=== PATIENT | female | born 1970 | race Caucasian/White ===

== ENCOUNTER → 2017-12-11 14:28 | Outpatient (CLI) | payer OTHER, SELFPAY ==
--- NOTE | 2017-12-11 14:38 | RAD_ITS ---
STUDY: X-RAY - PELVIS REASON FOR EXAM: Female, 47 years old. Psoriatic arthropathy. Pain. TECHNIQUE: One view of the pelvis was obtained. COMPARISON: None. FINDINGS: There is a non-specific bowel gas pattern. Normal visualized soft tissue structures. Normal bilateral iliac wings, sacroiliac joints and visualized sacrum. Normal visualized bilateral superior and inferior pubic rami. Normal pubic symphysis. Normal ischial tuberosities. Normal visualized right femoral head. Normal right acetabulum. Normal right hip joint. Normal visualized left femoral head. Normal left acetabulum. Normal left hip joint. RAD/Pelvis 1 or 2 Views IMPRESSION: No significant abnormality identified. Electronically Signed: Laci Santos MD at 17:26 EST , Service support ,
[2017-12-11 15:29] LABS: Absolute Lymphocyte Count 2.99 X10^3/ul (0.83-4.51); Absolute Neutrophil Count 3.5 X10^3/uL (2.0-7.7); Basophil# 0.04 X10^3/uL; Basophil% 0.5 % (0-1); Eosinophils% 1.3 % (0-5); Hematocrit 44.2 % (37-47); Hemoglobin 15.2 g/dl (12.0-15.0); Lymphocyte # 2.99 X10^3/ul (4.0); Lymphocyte % 40.4 % (19-41); Mean Corp Hgb Conc 34.4 g/gl (32-36); Mean Corpuscular Hgb 30.3 pg (27.0-32.0); Mean Corpuscular Volume 88.2 fL (81-99); Monocyte# 0.79 X10^3/uL; Monocyte% 10.7 % (0-10); Neutrophil # 3.48 X10^3/uL (2.7-7.7); Platelet Count 286 K/mm3 (150-450); RBC Distribution Width CV 13.1 % (11.6-14.6); RBC Distribution Width SD 41.9 fl (35.1-43.9); Red Blood Count 5.01 M/mm3 (4.2-5.4); White Blood Count 7.4 K/mm3 (4.4-11.0)
[2017-12-11 15:33] LABS: POSITIVE COUNT NO; POSITIVE DIFFERENTIAL NO; POSITIVE MORPHOLOGY NO
[2017-12-11 15:47] LABS: Erythrocyte Sedimentation Rate 13 mm/hr (0-20)
[2017-12-11 15:54] LABS: ALB/GLOB Ratio 0.8 RATIO (0.9-2.4); AST(SGOT) 20 U/L (15-37); Alanine Aminotransfer ALT/SGPT 33 U/L (13-56); Albumin, Serum 3.6 g/dL (3.2-5.0); Alkaline Phosphatase 85 U/L (45-117); Anion Gap 11 (5-15); BUN 14 mg/dL (7-18); BUN/Creat Ratio 15.7 RATIO (10-20); CRP 6.52 mg/L (0.0-3.0); Calcium,Total 9.1 mg/dL (8.5-10.1); Chloride 101 mmol/L (98-107); Creatinine, Serum 0.89 mg/dL (0.55-1.02); EST Glomerular Filtration Rate 72 mL/min (>60); Est Glom Filt Rate - Afr Amer 87 mL/min (>60); Globulin 4.4 g/dL (2.2-4.2); Glucose 117 mg/dL (74-106); Potassium 3.5 mmol/L (3.5-5.1); Rheumatoid Factor < 10.0 IU/mL (<15); Sodium Level 138 mmol/L (136-145)
[2017-12-20 07:15] LABS: CCP IgG Antibodies 32 units (0-19); HEPATITIS B SURFACE AG Negative (Negative); HLA B27 Negative (.); Hep B Surface Antibodies Non Reactive (.); Hep C Antibodies 0.1 s/co ratio (0.0-0.9)
== END ==
PROVIDERS: Family Provider Nurse Practitioner Primary Care; PCP Nurse Practitioner Primary Care; Visit Provider Internal Medicine Rheumatology
DX: L40.59 Other psoriatic arthropathy (principal); L40.8 Other psoriasis; M79.7 Fibromyalgia; M21.40 Flat foot [pes planus] (acquired), unspecified foot; K21.9 Gastro-esophageal reflux disease without esophagitis; M50.30 Other cervical disc degeneration, unspecified cervical region; G43.909 Migraine, unspecified, not intractable, without status migrainosus; E03.9 Hypothyroidism, unspecified; I34.1 Nonrheumatic mitral (valve) prolapse; E78.5 Hyperlipidemia, unspecified
CPT/HCPCS: 36415; 72170; 80053; 81374; 85025; 85652; 86140; 86200; 86431; 86706; 86803; 87340

== ENCOUNTER 2024-07-12 09:00 | Outpatient (RCR) | payer OTHER, SELFPAY ==
--- NOTE | 2024-05-06 08:50 | HP.PTEVAL ---
Patient's Visit Information Visit Information Visit Information: NIMESH ALCAZAR is a 53 year old F referred to Physical Therapy by DUY DUNN with a diagnosis of L ankle tendonitis, synovitis. Date of Evaluation: 05/06/24 Physical Therapist: Orlando Powers, DPT, OCS, CSCS Visit Plan Frequency: 3x /Week Duration: 4-6 Weeks Plan: 3x/week x 4 2weeks in pool for 1. B ROM and core strength 2. B LE strength 3. gastroc and soleus stretch adn ankle strength Teach for I at d/c Subjective Subjective: I have tendonitis in L foot. Had PT at [facility] as she needs TKA on R knee and will be in July and that is causing back pain for which she had an MRI last week form Dr. Delgado. L foot is the problem, it comes and goes laterally. Very tender to touch. PT flared everything up and she has FM. They both want water therapy. Foot pain is daily intermittently. Hard to lie on tummy due to pressure on ankle. Had unaboot for 4 days last week and not sure if it helped. Not sure why this started. Foot pain 1-/10 and higher for no reason and was hard sit at work. 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 Ankle is tolerable , R knee pain limits her activity,back can also get worse with activity. sleeping is OK with foot but knee and back can keep her up. No numbness or tingling in legs but back pain goes to L upper leg. Dr. Delgado has given some injections. No regular exercises. Pain L ankle: Pain Intensity (Out of 10): 0 Pain Intensity Range: 0 and 9 R knee: Pain Intensity (Out of 10): 0 Pain Intensity Range: 1 and 10 back: Pain Intensity (Out of 10): 4 Pain Intensity Range: 4 and 9 Objective Objective: Walks into PT with slight R antalgia, transfers chair and bed I, steps with L only up and down with rail I. LB AROM mod stiff in ext and flexion with central pain, SB mod stiff without the discomfort. hips AROM WFL, knees R to 110 and L 125, pain on R. ankles WFL, some tightness in gastroc B to 0 DF AROM but symmetrical. reflexes 2/3 patella and achilles B Max tender top of L foot and anterior ankleover tarsal bones not in specific tendon. sensation WNL to gross light touch in B LE. strength core 3/5 with instability on seated hip testing. hip strength 3+ abd and ext and 4- flexion knee3s 4- B but r quad pains knee. Ankles 4 without pain. Balance/Special Test Scores Lower Extremity Functional Score: 24 Goals Goal 1:: I appropriate pool ex to manage pain in community pool Goal Time Frame: 4-6 Weeks Goal 2:: Pain L ankle 3/10 at worst and 75% better Goal Time Frame: 4-6 Weeks Goal 3:: R knee and LB pain 50% better at 5/10 at worst Goal 4:: Sleep without problems from pain Goal Time Frame: 4-6 Weeks Goal 5:: LEFS score 44 Goal Time Frame: 4-6 Weeks Rehabilitation Potential Physical Therapy Diagnosis: L ankle pain, back stiffness, knee degeneration causing mobility problems. Rehabilitation Potential: Fair Anticipated Interventions Patient/Client Instruction: Educate patient on: Condition For the Purpose of:: To decrease pain, To increase ROM, To improve nutrient delivery to tissue, To improve muscle performance and motor function and To increase tolerance to activity/condition/position Therapeutic Exercise to Include: Strength training, Balance training, Flexibilty training, Gait and locomotor training, In an aquatic setting, Passive ROM and Active ROM For the Purpose of:: To decrease pain, To increase ROM, To improve nutrient delivery to tissue, To increase tolerance to activity/condition/position, To improve ability of physical actions for home/community/work/leisure and To decrease soft tissue restriction Text: Thank you for the opportunity to evaluate your patient. For Medicare and Medicare HMO plans, please review the plan of care and approve it. It will need to be FAXED BACK to us at [phone] for Medicare purposes. For Medicare only, by signing this I certify the plan of care. Please let me know if there are questions or concerns regarding this plan of care. Physician Signature: Date:
--- NOTE | 2024-06-07 09:31 | HP.PTDCSUM_ITS ---
Discharge Summary D/C summary: It has been my pleasure to treat NIMESH ALCAZAR referred by DUY DUNN, with the diagnosis of L ankle tendonitis, synovitis for a total of 11 visit(s). Discharge Date: Please see the following information for a summary of their discharge status. Subjective Subjective: No f/u with foot doctor, foot is doing great. , No pain. Knee pain still achy and will have TKA R next month. Doing HEP but painful in the knee. Up to 8/10 with walking and use. Feels better sitting. Back pain is seeing Dr. Delgado and ordered more PT. now is able to lie on L side for period of time. sleep is OK some nights and not other nights without a pattern. Got injections in LB and has had 2 this year which helps for weeks. Sees Dr. Bran also for neck but had MRI which shows multiple disc bulges and degenerative changes. Overall 15% better. foot is 100% bettere knee is not better Back is 20% better. 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 Pain L ankle: Pain Intensity (Out of 10): 1 R knee: Pain Intensity (Out of 10): 5 back: Pain Intensity (Out of 10): 3 Overall Improvement % Improvement: 15 Objective Objective/Function: LB AROM mod to max limited and slow movement in all dire ctions and hesitant. weak in core as she leans and opposite leg rotates with stability testing causing back pain. Ankle ROM is good and painfree. R knee hurts to extend max and unable to resist strength test on R. 4/5 on L Fair prognosis for new LB goal and diagnosis. Goals Goal 1:: I appropriate pool ex to manage pain in community pool Goal Progress: yes ankle, new script ross Goal 2:: Pain L ankle 3/10 at worst and 75% better Goal Progress: Goal Met Goal 3:: R knee and LB pain 50% better at 5/10 at worst Goal Progress: 20%, approp Goal 4:: Sleep without problems from pain Goal Progress: knee keeps her up Goal 5:: LEFS score 44 Goal Progress: Not Progressing Goal 6:: LBP 75% better at 2/10 at worst and I approp back pool program. Goal Progress: NEW GOAL, new script. Plan Plan: d/c ankle chart and 2-3x/week for 4 weeks for new order from Dr. Delgado for LB focus ...ROM and core strength and general exercise keeping in mind knee pain and pending TKA in July. Please work ot fullk program and I at d/c for membership which patient is on board with. D/C Information d/c sentence: If there are questions or concerns regarding this patient's physical therapy, please feel free to call me at [phone]. Thank you for the referral of this patient. Sincerely, Orlando Powers, DPT, OCS, CSCS Balance/Gait/Functional tests Balance/Special Test Scores Lower Extremity Functional Score: 27 Improvement % Improvement: 15
--- NOTE | 2024-06-07 10:52 | HP.PTREVAL_ITS ---
Re-Evaluation Intro: Dr. Delgado, It has been my pleasure to treat NIMESH ALCAZAR over the last 11 visits for L ankle tendonitis, synovitis. Please see the progress note below for an update on the physical therapy plan of care! Subjective Subjective: No f/u with foot doctor, foot is doing great. , No pain. Knee pain still achy and will have TKA R next month. Doing HEP but painful in the knee. Up to 8/10 with walking and use. Feels better sitting. Back pain is seeing Dr. Delgado and ordered more PT. now is able to lie on L side for period of time. sleep is OK some nights and not other nights without a pattern. Got injections in LB and has had 2 this year which helps for weeks. Sees Dr. Bran also for neck but had MRI which shows multiple disc bulges and degenerative changes. Overall 15% better. foot is 100% bettere knee is not better Back is 20% better. 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 Objective Objective/Function: LB AROM mod to max limited and slow movement in all dire ctions and hesitant. weak in core as she leans and opposite leg rotates with stability testing causing back pain. Ankle ROM is good and painfree. R knee hurts to extend max and unable to resist strength test on R. 4/5 on L Fair prognosis for new LB goal and diagnosis. Plan Plan Plan: d/c ankle chart and 2-3x/week for 4 weeks for new order from Dr. Delgado for LB focus ...ROM and core strength and general exercise keeping in mind knee pain and pending TKA in July. Please work ot fullk program and I at d/c for membership which patient is on board with. Balance/Gait/Functional tests Balance/Special Test Scores Lower Extremity Functional Score: 27 Goals Goals Goal 1:: I appropriate pool ex to manage pain in community pool Goal Time Frame: 4-6 Weeks Goal Progress: yes ankle, new script ross Goal 2:: Pain L ankle 3/10 at worst and 75% better Goal Time Frame: 4-6 Weeks Goal Progress: Goal Met Goal 3:: R knee and LB pain 50% better at 5/10 at worst Goal Progress: 20%, approp Goal 4:: Sleep without problems from pain Goal Time Frame: 4-6 Weeks Goal Progress: knee keeps her up Goal 5:: LEFS score 44 Goal Time Frame: 4-6 Weeks Goal Progress: Not Progressing Goal 6:: LBP 75% better at 2/10 at worst and I approp back pool program. Goal Time Frame: 4-6 Weeks Goal Progress: NEW GOAL, new script. Anticipated Interventions Anticipated Interventions Patient/Client Instruction: Educate patient on: Condition For the Purpose of:: To decrease pain, To increase ROM, To improve nutrient delivery to tissue, To improve muscle performance and motor function and To increase tolerance to activity/condition/position Therapeutic Exercise to Include: Strength training, Balance training, Flexibilty training, Gait and locomotor training, In an aquatic setting, Passive ROM and Active ROM For the Purpose of:: To decrease pain, To increase ROM, To improve nutrient delivery to tissue, To increase tolerance to activity/condition/position, To improve ability of physical actions for home/community/work/leisure and To decrease soft tissue restriction Re-Evaluation Ending Re-evaluation ending: Please do not hesitate to contact me at [phone] by phone or if you have questions or concerns regarding this new plan of care! Sincerely, Orlando Powers, DPT, OCS, CSCS
--- NOTE | 2024-07-12 09:28 | HP.PTDCSUM_ITS ---
Discharge Summary D/C summary: It has been my pleasure to treat NIMESH ALCAZAR referred by Dr. Rober Gross MD, with the diagnosis of L ankle tendonitis, synovitis for a total of 19 visit(s). Discharge Date: 07/12/24 Please see the following information for a summary of their discharge status. Subjective Subjective: Having knee replaced in a week or so. Still hurts alot and almost gave out on her this am without warning. The pool has really helped her back an d made her leg stronger. She feels ready for surgery. Sleep is not bad. Better than before as she can lie on l side now. Pain L ankle: Pain Intensity (Out of 10): 0 R knee: Pain Intensity (Out of 10): 6 back: Pain Intensity (Out of 10): 4 Overall Improvement % Improvement: 50 Objective Objective/Function: walking with slight R antalgia today, Transfers I easily, steps with L LE only due to pain and distrust. Good ROM in bakc and ankle without pain today, knee is limited and poor confidence but funcitonal AROM and gait today. Goals Goal 1:: I appropriate pool ex to manage pain in community pool Goal Progress: Goal Met Goal 2:: Pain L ankle 3/10 at worst and 75% better Goal Progress: Goal Met Goal 3:: R knee and LB pain 50% better at 5/10 at worst Goal Progress: Goal Met Goal 4:: Sleep without problems from pain Goal Progress: Goal Met Goal 5:: LEFS score 44 Goal Progress: Not Progressing Goal 6:: LBP 75% better at 2/10 at worst and I approp back pool program. Goal Progress: Progressing Plan Plan: d/c, pt to come back for knee after her surgery. Main deficits now are from knee and will be addressed with surgery. D/C Information d/c sentence: If there are questions or concerns regarding this patient's physical therapy, please feel free to call me at [phone]. Thank you for the referral of this patient. Sincerely, Orlando Powers, DPT, OCS, CSCS Balance/Gait/Functional tests Balance/Special Test Scores Lower Extremity Functional Score: 25 Improvement % Improvement: 50
== END 2024-07-12 10:36 | disposition home or self-care (01) ==
LOC: PT 09:00
PROVIDERS: PCP Nurse Practitioner Primary Care; Referring Provider Anesthesiology Pain Medicine; Visit Provider Anesthesiology Pain Medicine
DX: M77.52 Other enthesopathy of left foot and ankle (principal); M65.9 Synovitis and tenosynovitis, unspecified
CPT/HCPCS: 97113; 97161; 97530

== ENCOUNTER 2024-10-11 09:00 | Outpatient (RCR) | payer OTHER, SELFPAY ==
--- NOTE | 2024-07-26 10:05 | HP.PTEVAL_ITS ---
Patient's Visit Information Visit Information Visit Information: NIMESH ALCAZAR is a 53 year old F referred to Physical Therapy by IMTIAZ Pa with a diagnosis of R TKA, DOS: 07/22/24. Date of Evaluation: 07/23/24 Physical Therapist: Dale Hope DPT Visit Plan Frequency: 2x /Week Duration: 6 Weeks Plan: progress ROM, strength, giat. Add SLR and PKF and prone hang at home if tolerates. Subjective Subjective: Pt. is here today for her initial evaluation with diagnosis of R TKA. DOS: . Pt. reports doing well today, but had surgery last night. Pt. is overall pleased and reports doing well. No calf pain, no N/T. No chest pains. Pt. is sleeping well without issues. Pt. has not been able to do her exercises yet, but has not been home very long yet. Pt. reports that she is hopeful to get back to all household work without issues. Pt. is to return to physician in 2 weeks. Pt. is using FWW and icing as prescribed. Pt. is also w earing her TEDs as indicated. Pt. is hopeful to reduce symptoms in order to get back to all household activities. She denies fever as well. Pain R knee: Pain Intensity (Out of 10): 4 Objective Objective: POSTURE: Pt. has good posture in stance. Pt. has equal shifting between BLEs in stance with use of FWW. PALPATION: Pt. has no tenderness in calf, pt. does have bandage in place. She is to leave this in place until following up with physican. NEURO: normal sensation and normal achilles DTR bilaterally. ROM: R Knee: 0-2-81deg. PROM: 0-0-85 pain as limiting factor. MMT: Pt. has good quad strength. Pt. is able to complete SLR, but with lag. R Knee: ext 3#, flexion 5#; flexion 0#, abd 3#. LLE: Knee: ext 21#, flexion 17#, hip: flexion 21.3#, abd 19.1#. repeated sit to stand: 7 attempts TUG 33.1sec. GAIT: pt. ambulates well with FWW, slight lack of knee flexion during gait pattern, heavier use of FWW, but rest is decent. STAIRS: step to pattern with use of BHR. Balance/Special Test Scores WOMAC Total Score: 72 WOMAC Percentatge: 25.0000 Goals Goal 1:: LTG: Pt. to be I with HEP. Goal Time Frame: 4-6 Weeks Goal 2:: STG: Pt. to sleep throughout the night without increase in R knee pain. Goal Time Frame: 2-4 Weeks Goal 3:: STG: Pt. to have increased R knee ROM to 0-0-120deg. Goal Time Frame: 2 Weeks Goal 4:: LTG: pt. to have symmetrical strength between BLEs. Goal Time Frame: 4-6 Weeks Goal 5:: LTG: Pt. to have decreased TUG time to less than 8 sec without use of AD. Goal Time Frame: 4-6 Weeks Goal 6:: LTG: Pt. to be able to ambulate with normal gait pattern with out use of AD. Goal Time Frame: 4-6 Weeks Rehabilitation Potential Physical Therapy Diagnosis: Pt. has signs and symptoms consistent with R TKA, DOS 07/22/24. Pt. has marked hypombility, weakness, and difficulty walking. Pt. would benefit from PT to address the above limitations. Rehabilitation Potential: Excellent Anticipated Interventions Patient/Client Instruction: Educate patient on: Condition, Plan of Care, Risk Factors and Benefits of Fitness Program For the Purpose of:: To foster healthy habits, To improve decision making, To facilitate caregiver knowledge, To improve self management, To prevent re-injury and To improve ability to perform tasks related to life management Therapeutic Exercise to Include: Strength training, Endurance training, Flexibilty training, Gait and locomotor training, Passive ROM and Active ROM For the Purpose of:: To decrease pain, To decrease swelling/inflammation, To inc rease ROM, To improve nutrient delivery to tissue, To increase oxygenation perfusion, To improve muscle performance and motor function and To improve ability to perform ADL's Cryotherapy (ice pack, ice massage): Yes Vasopneumatic device: Yes For the Purpose of:: To decrease pain, To decrease swelling/inflammation and To increase ROM Text: Thank you for the opportunity to evaluate your patient. For Medicare and Medicare HMO plans, please review the plan of care and approve it. It will need to be FAXED BACK to us at [phone] for Medicare purposes. For Medicare only, by signing this I certify the plan of care. Please let me know if there are questions or concerns regarding this plan of care. Physician Signature: Date:
--- NOTE | 2024-08-26 15:51 | HP.PTREVAL ---
Re-Evaluation Intro: IMTIAZ Pa, It has been my pleasure to treat JEANE ALCAZAR over the last 13 visits for R TKA, DOS: 07/22/24. Please see the progress note below for an update on the physical therapy plan of care! Subjective Subjective: Pt. arrives today with out use of AD with good tolerance. Pt. reports overall progressing as expected. Pt. reports minimal pain currently. HEP compliant. Objective Objective/Function: ROM: 0-0-105deg AROM, PROM 0-0-111deg. Pt. reports pain as limiting factor with knee flexion MMT: RLE: knee ext 11.4#, flexion 13.5#; hip: flexion 9.4 LLE: knee: ext 21.3#, flexion 17.4#, hip flexion 15.7# STAIRS: Pt. is able to complete with 2 HR with some pain during R stance phase, worse with descending. GAIT: pt. is walking very well, she has good TKE during stance phase and decent knee flexion during swing. Jeane is overall doing well, but really needs to focus knee flexion. Plan Plan Plan: Pt. is overall doing well with her mobility, She needs to continue to work on knee flexion progressing to 120deg. Progress strengthening as tolerated. Balance/Gait/Functional tests Balance/Special Test Scores TUG Test Time Seconds: 12.3 Tug Test: <20 sec.=mostly independent 30 Second Chair Rise Test Seconds: 11 WOMAC Total Score: 72 WOMAC Percentage: 25.0000 Goals Goals Goal 1:: LTG: Pt. to be I with HEP. Goal Time Frame: 4-6 Weeks Goal 2:: STG: Pt. to sleep throughout the night without increase in R knee pain. Goal Time Frame: 2-4 Weeks Goal Progress: Goal Met Goal 3:: STG: Pt. to have increased R knee ROM to 0-0-120deg. Goal Time Frame: 2 Weeks Goal Progress: Progressing Goal 4:: LTG: pt. to have symmetrical strength between BLEs. Goal Time Frame: 4-6 Weeks Goal Progress: Progressing Goal 5:: LTG: Pt. to have decreased TUG time to less than 8 sec without use of AD. Goal Time Frame: 4-6 Weeks Goal Progress: Progressing Goal 6:: LTG: Pt. to be able to ambulate with normal gait pattern with out use of AD. Goal Time Frame: 4-6 Weeks Goal Progress: Goal Met Anticipated Interventions Anticipated Interventions Patient/Client Instruction: Educate patient on: Condition, Plan of Care, Risk Factors and Benefits of Fitness Program For the Purpose of:: To foster healthy habits, To improve decision making, To facilitate caregiver knowledge, To improve self management, To prevent re-injury and To improve ability to perform tasks related to life management Therapeutic Exercise to Include: Strength training, Endurance training, Flexibilty training, Gait and locomotor training, Passive ROM and Active ROM For the Purpose of:: To decrease pain, To decrease swelling/inflammation, To increase ROM, To improve nutrient delivery to tissue, To increase oxygenation perfusion, To improve muscle performance and motor function and To improve ability to perform ADL's Cryotherapy (ice pack, ice massage): Yes Vasopneumatic device: Yes For the Purpose of:: To decrease pain, To decrease swelling/inflammation and To increase ROM Re-Evaluation Ending Re-evaluation ending: Please do not hesitate to contact me at [phone] by phone or if you have questions or concerns regarding this new plan of care! Sincerely, Dale Hope DPT
== END 2024-10-11 19:00 | disposition home or self-care (01) ==
LOC: PT 09:00
PROVIDERS: PCP Nurse Practitioner Primary Care; Referring Provider Physician Assistant; Visit Provider Physician Assistant
DX: M17.11 Unilateral primary osteoarthritis, right knee (principal); Z96.651 Presence of right artificial knee joint; Z47.1 Aftercare following joint replacement surgery
CPT/HCPCS: 97016; 97110; 97140; 97161; 97530

== ENCOUNTER 2025-07-21 12:54 | Outpatient (CLI) | payer OTHER, SELFPAY ==
[2025-07-23 13:08] LABS: SJOGREN'S Anti-SS-A test < 0.2 AI (0.0-0.9); SJOGREN'S Anti-SS-B test < 0.2 AI (0.0-0.9)
== END 2025-07-21 23:59 | disposition home or self-care (01) ==
LOC: LAB 12:56
PROVIDERS: PCP Nurse Practitioner Primary Care
DX: R68.2 Dry mouth, unspecified (principal); R13.10 Dysphagia, unspecified; R12 Heartburn; R49.0 Dysphonia
CPT/HCPCS: 36415; 86235

== ENCOUNTER 2025-09-24 05:56 | Day surgery (SDC) | payer OTHER, SELFPAY ==
--- NOTE | 2025-09-22 16:59 | PAT.ANESEVAL ---
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 When Was Last Pacemaker Check QUESTION #4 FULL TEXT: You/Your Family Experience fever (hyperthermia) with Anesthesia Last Oral Intake Last Oral intake: Last Oral Intake NPO since Meds taken in AM with sips of water? 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 Female Yes 09/22/25 12:09 HX of Motion Sickness Yes 09/22/25 12:09 HX of N/V After Surgery Yes 09/22/25 12:09 Non-Smoker Yes 09/22/25 12:09 Duration of Surgery greater No 09/22/25 12:09 than 60 minutes Number of Risk Factors 4 09/22/25 12:09 PONV Score Severe Risk 09/22/25 12:09 Respiratory Assessment Respiratory Assessment - correctional officer sergeant: Respiratory Tract Infection Hx - correctional officer sergeant Hx Respiratory Tract Infection No 09/22/25 12:09 STOP Sleep Apnea STOP Sleep Apnea - correctional officer sergeant: STOP Sleep Apnea - correctional officer sergeant Hx Hypertension Yes 09/22/25 12:09 Hx Sleep Apnea No 09/22/25 12:09 CPAP BIPAP Do you snore loudly (louder No 09/22/25 12:09 than talking or can be heard Do you often feel tired/ No 09/22/25 12:09 fatigued/ sleepy during daytime? Has anyone observed you stop No 09/22/25 12:09 breathing during sleep? STOP Results Negative 09/22/25 12:09 QUESTION #5 FULL TEXT : Do you snore loudly (louder than talking or can be heard through closed doors)? 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 Specify any problems Hx of Preganancy in last 3 No 09/22/25 12:09 Months Nurse Filling Out Transfusion [facility] 09/22/25 12:09 & Questions: Date: 09/22/25 09/22/25 12:09 Time: 12:18 09/22/25 12:09 Patient unable to answer at this time (ie. 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 MVP (mitral valve prolapse) Home Medications ?Medication ?Instructions ?Recorded ?Last Taken ?Type atenolol 25 mg tablet 25 mg PO QHS 06/13/25 Unknown History chlorophyll copper complex 10 mg 10 mg PO DAILY 06/13/25 Unknown History tablet cholecalciferol (vitamin D3) 250 250 mcg PO BID 06/13/25 Unknown History mcg (10,000 unit) capsule cranberry extract 250 mg capsule 500 mg PO QDAY 06/13/25 Unknown History furosemide 20 mg tablet (Lasix) 20 mg PO QAM 06/13/25 Unknown History levocetirizine 5 mg tablet 5 mg PO QDAY 06/13/25 Unknown History levothyroxine 50 mcg capsule 50 mcg PO QDAY 06/13/25 Unknown History magnesium 200 mg tablet 500 mg PO QDAY 06/13/25 Unknown History metformin 500 mg tablet 1,000 mg PO BID 06/13/25 Unknown History montelukast 10 mg tablet 10 mg PO QDAY 06/13/25 Unknown History simvastatin 40 mg tablet 40 mg PO QDAY 06/13/25 Unknown History verapamil 120 mg tablet 120 mg PO BID 06/13/25 Unknown History omeprazole 40 mg capsule,delayed 40 mg PO QDAY #30 caps 09/05/25 Unknown Rx release coenzyme Q10 30 mg capsule (Co 30 mg PO DAILY 09/22/25 Unknown History Q-10) estradiol 0.05 mg/24 hr semiweekly 1 patch transdermal TUFR 09/22/25 Unknown History transdermal patch progesterone micronized 200 mg 200 mg PO QHS 09/22/25 Unknown History capsule trazodone 100 mg tablet 100 mg PO QHS 09/22/25 Unknown History Allergy/AdvReac Type Severity Reaction Status Date / Time erythromycin base Allergy Intermediate Nausea Verified 09/05/25 12:53 sulfamethoxazole (From Allergy Intermediate Rash, Verified 09/05/25 12:53 Septra) nausea trimethoprim (From Septra) Allergy Intermediate Rash, Verified 09/05/25 12:53 nausea Family History Mother Arthritis Hypertension Father Arthritis Hypertension High cholesterol Diabetes Brother Cancer pancreatic Surgical History (Updated 09/22/25 @ 12:09 by Cinthia Ram) Hx of fusion of cervical spine H/O knee surgery History of carpal tunnel surgery of right wrist History of carpal tunnel surgery of left wrist H/O vaginal surgery History of Social History Smoking Status: Never smoker Audit: Pertinent Findings Pertinent Findings EKG Perinent findings: June 10, 2024. Sinus rhythm. Consult pertinent findings: June 16, 2025. 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 1. Mitral valve prolapse?stable. Last echo in 2015 showed MVP with trace MR. No signs and symptoms of worsening of valve function. 2. Hypertension-blood pressure has been running low. Will try reducing atenolol to 25 mg once a day at bedtime. 3. Palpitations?stable. Discussed avoiding stimulants. Decrease atenolol to 25 mg daily and verapamil 120 mg twice daily. Recommendation Anesthesia Recommendation Anesthesia recommendation: OPTIMIZED for anesthesia
[2025-09-24] VITALS (8 sets, daily range): BP systolic 86–102; BP diastolic 56–65; PULSE 50–60; RESP 16–18; TEMP 36.3–36.6; O2SAT 94–97; BMI 26.9
--- OUTSIDE RECORDS SUMMARY | 2025-09-24 06:00 | XMS RPT_ITS | CCD ---
Author Organization [facility] Care Team Providers Care Video Game Designer Name Role Phone RENU MONOGRAM MACHINE OPERATOR-BELT MACHINE OPERATOR, KATHI S Primary Care Physicia n SANAZ BROWNE PAC Attending Unavailable SANAZ BROWNE PAC Primary Care Unavailable SANAZ BROWNE PAC Admitting Unavailable RENU MONOGRAM MACHINE OPERATOR-BELT MACHINE OPERATOR, KATHI Henson Attending Unava ilable RENU MONOGRAM MACHINE OPERATOR-BELT MACHINE OPERATOR, KATHI S Primary Care Unava ilable GOPAL BERMEO, DR VILLEGAS Attending Unavailable RENU MONOGRAM MACHINE OPERATOR-BELT MACHINE OPERATOR, KATHI S Primary Care Unava ilable FISH MONOGRAM MACHINE OPERATOR-BELT MACHINE OPERATOR, RHEA Attending Unavailab le RENU MONOGRAM MACHINE OPERATOR-BELT MACHINE OPERATOR, KATHI S Primary Care Unava ilable FISH MONOGRAM MACHINE OPERATOR-BELT MACHINE OPERATOR, RHEA Attending Unavailab le RENU MONOGRAM MACHINE OPERATOR-BELT MACHINE OPERATOR, KATHI S Primary Care Unava ilable FATOUMATA MONOGRAM MACHINE OPERATOR-BELT MACHINE OPERATOR, KATY Pierre Attending Un available RENU MONOGRAM MACHINE OPERATOR-BELT MACHINE OPERATOR, KATHI S Primary Care Unava ilable POLY LEYVA MD Attending Unavailable RENU MONOGRAM MACHINE OPERATOR-BELT MACHINE OPERATOR, KATHI S Primary Care Unava ilable RENU MONOGRAM MACHINE OPERATOR-BELT MACHINE OPERATOR, KATHI S Attending Unava ilable RENU MONOGRAM MACHINE OPERATOR-BELT MACHINE OPERATOR, KATHI S Primary Care Unava ilable RENU MONOGRAM MACHINE OPERATOR-BELT MACHINE OPERATOR, KATHI S Attending Unava ilable RENU MONOGRAM MACHINE OPERATOR-BELT MACHINE OPERATOR, KATHI S Primary Care Unava ilable RENU MONOGRAM MACHINE OPERATOR-BELT MACHINE OPERATOR, KATHI S Attending Unava ilable RENU MONOGRAM MACHINE OPERATOR-BELT MACHINE OPERATOR, KATHI S Primary Care Unava ilable RENU MONOGRAM MACHINE OPERATOR-BELT MACHINE OPERATOR, KATHI S Attending Unava ilable RENU MONOGRAM MACHINE OPERATOR-BELT MACHINE OPERATOR, KATHI S Primary Care Unava ilable RENU MONOGRAM MACHINE OPERATOR-BELT MACHINE OPERATOR, KATHI S Attending Unava ilable RENU MONOGRAM MACHINE OPERATOR-BELT MACHINE OPERATOR, KATHI S Primary Care Unava ilable EDWARD STEPHENS, DR LOUISE Attending Unavailabl e RENU MONOGRAM MACHINE OPERATOR-BELT MACHINE OPERATOR, KATHI S Primary Care Unava ilable [place] DO, Ana J Primary Care Provider ELHAM AGUIRRE Attending Unavailable ANA SEARS Primary Care Unavailable ELHAM AGUIRRE Referring Unavailable ANA SEARS Primary Care Unavailable ROSEY IBRAHIM Attending Unavailable ANA SEARS Primary Care Unavailable [place] BOOK TRIMMER-C, Kathi Primary Care Provider Carlos BOOK TRIMMER-C, Netta Attending Provider Fatoumata BOOK TRIMMER-C, Katy Referring Provider RENU MONOGRAM MACHINE OPERATOR-BELT MACHINE OPERATOR, KATHI S Attending Unava ilable RENU MONOGRAM MACHINE OPERATOR-BELT MACHINE OPERATOR, KATHI S Primary Care Unava ilable RENU MONOGRAM MACHINE OPERATOR-BELT MACHINE OPERATOR, KATHI S Primary Care Unava ilable FATOUMATA MONOGRAM MACHINE OPERATOR-BELT MACHINE OPERATOR, KATY Pierre Attending Un available RENU MONOGRAM MACHINE OPERATOR-BELT MACHINE OPERATOR, KATHI S Primary Care Unava ilable JENNIFER RANDALL DO Attending Unavailable RENU MONOGRAM MACHINE OPERATOR-BELT MACHINE OPERATOR, KATHI S Attending Unava ilable RENU MONOGRAM MACHINE OPERATOR-BELT MACHINE OPERATOR, KATHI S Primary Care Unava ilable RENU MONOGRAM MACHINE OPERATOR-BELT MACHINE OPERATOR, KATHI S Attending Unava ilable RENU MONOGRAM MACHINE OPERATOR-BELT MACHINE OPERATOR, KATHI S Primary Care Unava ilable RENU MONOGRAM MACHINE OPERATOR-BELT MACHINE OPERATOR, KATHI S Primary Care Unava ilable RENU MONOGRAM MACHINE OPERATOR-BELT MACHINE OPERATOR, KATHI S Attending Unava ilable Renu BOOK TRIMMER, Kathi Referring Unavailable Shreya Jennings Attending Unavailable Renu BOOK TRIMMER, [facility] Primary Care Unavailable Renu BOOK TRIMMER, Kathi Primary Care Unavailable Tony Carroll Attending Unavailable Tony Carroll Referring Unavailable Hayder Ospina Attending Unavailable [place] BOOK TRIMMER, [facility] Primary Care Unavailable Renu BOOK TRIMMER, Kathi Primary Care Unavailable Netta Gonzalez Attending Unavailable Netta Gonzalez Referring Unavailable Renu BOOK TRIMMER, Kathi Primary Care Unavailable Netta Gonzalez Attending Unavailable Fatoumata COWAN, Katy Referring Unavailabl e Allergies Allergy Classification Reported Allergen(s) Allergy Type Date of Onset Reaction(s) Facility (20 sources) Erythromycin; Translations: [erythromycin] Drug Allergy 04-02-[address] [facility] (20 sources) Sulfamethoxazole / Trimethoprim; Translations: [sulfamethoxazole-t rimethoprim] Drug Allergy 01-03-20 12 [facility] (7 sources) cantaloupe allergenic extract; Translations: [CANTALOUPE] Drug Allergy 04-15-20 10 Itching [facility] (7 sources) Chocolate; Translations: [CHOCOLATE] Food Allergy 04-15-20 10 Itching [facility] (7 sources) clam allergenic extract; Translations: [CLAMS] Drug Allergy 04-15-20 10 Itching [facility] (7 sources) egg extract; Translations: [EGG] Drug Allergy 04-15-20 10 Itching [facility] (7 sources) Fish; Translations: [FISH] Food Allergy 04-15-20 10 [facility]ching [facility] (7 sources) Milk; Translations: [MILK CONTAINING PRODUCTS (DAIRY)] Drug Intolerance 03-19-20 25 Itching [facility] (7 sources) peanut; Translations: [PEANUTS] Food Allergy 04-15-20 10 Itching [facility] (7 sources) [place]; Translations: [STRAWBERRIES] Food Allergy 04-15-20 10 Itching [facility] (7 sources) Sulfonamides (Antibiotic); Translations: [SULFA (SULFONAMIDE ANTIBIOTICS)] Drug Allergy 01-03-20 12 [facility] (7 sources) watermelon preparation; Translations: [WATERMELON] Drug Allergy 04-15-20 10 Itching [facility] (7 sources) Monosodium Glutamate (Msg); Translations: [MONOSODIUM GLUTAMATE (MSG)] Food Allergy 03-19-20 25 Itching [facility] (1 source) Erythromycin; Translations: [ERYTHROMYCIN (BULK)] Drug Allergy 04-02-20 10 [facility] (1 source) Sulfamethoxazole / Trimethoprim; Translations: [SULFAMETHOXAZOLE-T RIMETHOPRIM] Drug Allergy 01-03-20 12 [facility] (1 source) Sulfamethoxazole Drug Allergy 06-13-20 Rash, nausea [facility] (1 source) Trimethoprim Drug Allergy 06-13-20 Rash, nausea [facility] (1 source) Erythromycin Drug Allergy 09-05-20 [facility] (1 source) Sulfamethoxazole Drug Allergy 09-05-20 [facility] (1 source) Trimethoprim Drug Allergy 09-05-20 [facility] Medications Current Medications Medication Drug Class(es) Dates Sig (Normalized) Sig (Original) amoxicillin 500 mg oral capsule (1 source) Penicillin-class Antibacterial Start: 03-25-2025 amoxicillin 500 mg oral capsule Dose : 500 mg = 1 cap(s), Oral, TID, 0 Refill(s) Start Date: 03/25/25 Status: Ordered Repeat number: 1 atenolol 25 mg oral tablet (20 sources) beta-Adrenergic Victor M Start: 01-10-2025 take 1 tablet by mouth once daily Atenolol 25 mg tablet Active 25 mg PO daily June 13, 2025 12:00am Start: 08-15-2023 End: 08-29-2024 atenolol 25 mg oral tablet D ose : 25 mg = 1 tab(s), Oral, BID, X 90 day(s), # 180 tab(s), 0 Refill(s), 08/29/24 9:57:00 AM EDT, Pharmacy: [facility]/pharmacy #[id number], 162, cm, 03/13/24 10:24:00 EDT, Height, kg, 03/13/24 10:24:00 EDT, Dosing Weight Start Date: 05/31/24 Stop Date: 08/29/24 Status: Ordered Start: 07-04-2023 atenolol 25 mg oral tablet Dose : 25 mg = 1 tab(s), Oral, BID, # 180 tab(s), 1 Refill(s), Pharmacy: [facility]/pharmacy #[id number], 161, cm, 07/04/23 13:04:00 EDT, Height, kg, 07/04/23 13:04:00 EDT, Dosing Weight Start Date: 07/04/23 Status: Ordered Start: 05-30-2022 take 1 tablet by neris th once daily atenolol 25 mg oral tablet See Instructions, TAKE 1 TABLET BY MOUTH EVERY DAY, # 90 tab(s), 3 Refill(s), Pharmacy: [facility]), 162, cm, 05/30/22 9:38:00 EDT, Height, kg, 05/30/22 9:38:00 EDT, Dosing Weight Start Date: 05/30/22 Status: Ordered Start: 10-11-2021 take 1 tablet by neris th once daily atenolol 25 mg oral tablet See Instructions, TAKE 1 TABLET BY MOUTH EVERY DAY, # 30 tab(s), 3 Refill(s), Pharmacy: [facility] [id number], 162, cm, 07/14/21 9:28:00 EDT, Height, kg, 07/14/21 9:28:00 EDT, Dosing Weight Start Date: 10/11/21 Status: Ordered ATENOLOL ORAL Ta ke by mouth. Active B 100 Complex (10 sources) Start: 05-21-2010 take 1 tablet by neris th once daily B 100 Complex Dose = 1 tab(s), PO, Daily, 0 Refill(s), current med (Hx) Start Date: 05/21/10 Status: Ordered Start: 05-21-2010 take 1 tablet by mouth once da ashley B 100 Complex 1 tab(s), PO, Daily Start Date: 05/21/10 Status: Ordered bazedoxifene 20 mg / estrogens, conjugated (snf) 0.45 mg oral tablet (2 sources) Estrogen Start: 06-10-2024 take 1 tablet by mouth once daily Duavee 0.45 mg-20 mg oral tablet TAKE 1 TABLET BY MOUTH EVERY DAY Start Date: 06/10/24 Status: Ordered Biotene Dry Mouth oral solution (3 sources) Start: 05-24-2025 take 1 dose by mouth once daily as needed Biotene Dry Mouth oral solution Dose = 15 mL, Oral, 6x/Day, PRN as needed, swish and spit; do not swallow, # 240 mL, 0 Refill(s), Pharmacy: [facility], Dry mouth Oral thrush, 162, cm, 05/24/25 9:23:00 EDT, Height, kg, 05/24/25 9:23:00 EDT, Dosing Weight Start Date: 05/24/25 Status: Ordered Medication Dispense Status: Completed Quantity: 240.0 Unit: mL Total Allowed Fills: 1 Fills Dispensed: 0 Indications: Dry mouth, unspecified; Candidal stomatitis; Start: 05-24-2025 take 1 dose by mouth once daily as needed Biotene Dry Mouth oral solution Dose = 15 mL, Oral, 6x/Day, PRN as needed, swish and spit; do not swallow, # 240 mL, 0 Refill(s), Pharmacy: [facility], Dry mouth Oral thrush, 162, cm, 05/24/25 9:23:00 EDT, Height, kg, 05/24/25 9:23:00 EDT, Dosing Weight Start Date: 05/24/25 Status: Ordered Quantity: 240.0 Unit: mL Repeat number: 1 Indications: Dry mouth, unspecified; Candidal stomatitis; Biotin (1 source) Start: 06-13-2025 Biotin 5,000 mcg tablet,chewable Active ug PO June 13, 2025 12:00am calcium (as carbonate and lactate)-vitamin D 200 mg-250 intl units (6.25 mcg) oral tablet, chewable (1 source) Start: 10-18-2019 take 1 tablet by mouth once daily calcium (as carbonate and lactate)-vitamin D 200 mg-250 intl units (6.25 mcg) oral tablet, chewable Dose = 1 tab(s), Chewed, qDay, # 100 tab(s), 0 Refill(s) Start Date: 10/18/19 Status: Ordered calcium citrate 1190 mg / cholecalciferol 0.005 mg oral tablet (9 sources) Vitamin D Start: 10-18-2019 take 1 tablet by mouth once daily calcium (as carbonate and lactate)-vitamin D 200 mg-250 intl units (6.25 mcg) oral tablet, chewable Dose = 1 tab(s), Chewed, qDay, # 100 tab(s), 0 Refill(s) Start Date: 10/18/19 Status: Ordered cephalexin 500 mg oral tablet (1 source) Cephalosporin Antibacterial Start: 06-10-2023 End: 06-17-2023 cephalexin 500 mg oral tablet Dose : 500 mg = 1 tab(s), Oral, QID, X 7 day(s), # 28 tab(s), 0 Refill(s), 06/17/23 12:54:00 PM EDT, 74.2 Start Date: 06/10/23 Stop Date: 06/17/23 Status: Ordered chlorophyll 50 mg oral capsule (20 sources) Start: 10-18-2019 take 1 dose by mouth once daily Chlorophyll Dose : 50 mg =, Oral, Daily, 0 Refill(s) Start Date: 10/18/19 Status: Ordered Medication Dispense Status: Completed Total Allowed Fills: 1 Fills Dispensed: 0 Chlorophyll Copper Complex 10 mg tablet (1 source) Start: 06-13-2025 Chlorophyll Copper Complex 10 mg tablet Active mg PO June 13, 2025 12:00am cholecalciferol 0.25 mg oral capsule (2 sources) Vitamin D Start: 06-13-2025 take 1 capsule by mouth twice daily Cholecalciferol (Vitamin D3) 250 mcg (10,000 unit) capsule Active 250 ug PO TWICE A DAY June 13, 2025 12:00am Start: 04-09-2010 End: 03-19-2025 take 1 capsule by mouth once daily CHOLECALCIFEROL (VITAMIN D3) 2,000 UNIT CAP Indications: Fatigue one po daily 90 4 04/09/2010 03/19/2025 Discontinued cinnamon bark 500 mg oral capsule (7 sources) Start: 06-13-2025 take 1 capsule by mouth once daily Cinnamon Bark (Cinnamon) 500 mg capsule Active 500 mg PO daily June 13, 2025 12:00am cinnamon bark (C INNAMON ORAL) Take by mouth. Active Coenzyme Q10 (20 sources) Start: 05-21-2010 take 1 dose by mouth once daily Coenzyme Q10 Dose : 50 mg =, PO, Daily, 0 Refill(s), current med (Hx) Start Date: 05/21/10 Status: Ordered Medication Dispense Status: Completed Total Allowed Fills: 1 Fills Dispensed: 0 Start: 05-21-2010 take 1 dose by mouth once radha y Coenzyme Q10 Dose : 50 mg =, PO, Daily, 0 Refill(s), current med (Hx) Start Date: 05/21/10 Status: Ordered Repeat number: 1 Start: 05-21-2010 take 1 dose by mouth once radha y Coenzyme Q10 Dose : 50 mg =, PO, Daily, 0 Refill(s), current med (Hx) Start Date: 05/21/10 Status: Ordered Start: 05-21-2010 Coenzyme Q10 5 0 mg, PO, Daily Start Date: 05/21/10 Status: Ordered Cranberry Extract (20 sources) Non-Standardized Food Allergenic Extract, Non-Standardized Plant Allergenic Extract Start: 06-13-2025 take 1 capsule by mouth once daily Cranberry Extract 250 mg capsule Active 500 mg PO daily June 13, 2025 12:00am administer with a meal Start: 10-18-2019 take 1 capsule by [facility] once daily cranberry oral capsule Dose = 1 cap(s), Oral, Daily, 0 Refill(s) Start Date: 10/18/19 Status: Ordered Medication Dispense Status: Completed Total Allowed Fills: 1 Fills Dispensed: 0 Start: 10-18-2019 take 1 capsule by [facility] once daily cranberry oral capsule Dose = 1 cap(s), Oral, Daily, 0 Refill(s) Start Date: 10/18/19 Status: Ordered Repeat number: 1 Start: 10-18-2019 take 1 capsule by [facility] once daily cranberry oral capsule Dose = 1 cap(s), Oral, Daily, 0 Refill(s) Start Date: 10/18/19 Status: Ordered Start: 04-02-2010 CRANBERRY 500 MG CAP Take 1500 mg daily 0 04/02/2010 Active 84 hr estradiol 0.46623 mg/hr transdermal system (6 sources) Estrogen Start: 03-19-2025 estradiol (VIVELLE-DOT) 0.05 mg/24 hr patch Apply 1 patch as directed two times a week. TWICE WEEKLY 8 patch 12 03/19/2025 Active Estradiol Patch 0.05 mg/24 hours twice weekly transdermal film, extended release (1 source) Start: 04-22-2025 Estradiol Patch 0.05 mg/24 hours twice weekly transdermal film, extended release 0.05 mg Dose = 1 patch(es), Transdermal, 2x/Wk, apply to skin, # 8 patch(es), 0 Refill(s) Start Date: 04/22/25 Status: Ordered Quantity: 8.0 Unit: patch(es) Repeat number: 1 {21 (Ethinyl Estradiol 0.02 MG / Levonorgestrel 0.1 MG Oral Tablet) / 7 (Inert Ingredients 1 MG Oral Tablet) } Pack [Sronyx 28 Day] (13 sources) Progestin, Estrogen, Progestin-containi ng Intrauterine Device Start: 10-18-2019 take 1 tablet by mouth once daily Sronyx 100 mcg-20 mcg oral tablet TAKE 1 TABLET EVERY DAY FOR 3 WEEKS DISCARD LAST WEEK Start Date: 10/18/19 Status: Ordered End: 03-19-2025 take 1 tablet by mouth once Levonorgestrel-Ethinyl Estrad (SRONYX) 0.1mg - 20mcg per tablet Take 1 tablet by mouth as directed. 03/19/2025 Discontinued (Other) ferrous sulfate 325 mg oral tablet (4 sources) Start: 06-13-2025 take 1 tablet by mouth once daily Ferrous Sulfate (Feosol) 325 mg (65 mg iron) tablet Active 325 mg PO daily June 13, 2025 12:00am Start: 05-24-2025 End: 06-23-2025 ferrous sulfate 325 mg (65 m g elemental iron) oral delayed release tablet Dose : 325 mg = 1 tab(s), Oral, qDay, # 30 tab(s), 0 Refill(s), Pharmacy: [facility], Iron deficiency anemia, 162, cm, 05/24/25 9:23:00 EDT, Height, kg, 05/24/25 9:23:00 EDT, Dosing Weight Start Date: 05/24/25 Stop Date: 06/23/25 Status: Ordered Medication Dispense Status: Completed Quantity: 30.0 Unit: tab(s) Total Allowed Fills: 1 Fills Dispensed: 0 Indications: Iron deficiency anemia, unspecified; fluconazole 150 mg oral tablet (2 sources) Azole Antifungal Start: 05-28-2025 End: 06-25-2025 fluconazole 150 mg oral tablet Dose : 150 mg = 1 tab(s), Oral, qWeek, X 4 week(s), # 4 tab(s), 0 Refill(s), 06/25/25 2:31:00 PM EDT, Pharmacy: [facility], Dry mouth Dysphagia, 162, cm, 05/28/25 13:56:00 EDT, Height, 69.4, kg, 05/28/25 13:56:00 EDT, Dosing Weight Start Date: 05/28/25 Stop Date: 06/25/25 Status: Ordered Medication Dispense Status: Completed Quantity: 4.0 Unit: tab(s) Total Allowed Fills: 1 Fills Dispensed: 0 Indications: Dry mouth, unspecified; Dysphagia, unspecified; furosemide 20 mg oral tablet (20 sources) Loop Diuretic Start: 05-31-2021 take 1 tablet by mouth once daily in the morning Furosemide (Lasix) 20 mg tablet Active 20 mg PO EVERY MORNING June 13, 2025 12:00am ibuprofen 600 mg oral tablet (20 sources) Nonsteroidal Anti-inflammatory Drug Start: 11-23-2020 IBU 600 mg oral tablet Dose : 600 mg = 1 tab(s), Oral, q6h, # 20 tab(s), 0 Refill(s) Start Date: 11/23/20 Status: Ordered take 1 tablet by neris th every six hours as needed ibuprofen (ADVIL) 200 mg tablet Take 200 mg by mouth every 6 hours as needed. Active levocetirizine dihydrochloride 5 mg oral tablet (20 sources) Histamine-1 Receptor Antagonist Start: 04-02-2010 levocetirizine dihydrochloride(XYZAL 5 MG TAB) Take one(1) tablet daily. 0 04/02/2010 Active levothyroxine sodium 0.05 mg oral capsule (20 sources) l-Thyroxine Start: 06-13-2025 take 1 capsule by mouth once daily Levothyroxine 50 mcg capsule Active 50 ug PO daily June 13, 2025 12:00am Start: 06-04-2025 End: 09-02-2025 levothyroxine 50 mcg (0.05 m g) oral tablet Dose : 50 mcg = 1 tab(s), Oral, qDay, # 90 tab(s), 0 Refill(s), Pharmacy: [facility], 162, cm, 05/28/25 13:56:00 EDT, Height, kg, 05/28/25 13:56:00 EDT, Dosing Weight Start Date: 06/04/25 Stop Date: 09/02/25 Status: Ordered Medication Dispense Status: Completed Quantity: 90.0 Unit: tab(s) Total Allowed Fills: 1 Fills Dispensed: 0 Start: 12-04-2024 End: 05-26-2025 levothyroxine 50 mcg (0.05 m g) oral tablet Dose : 50 mcg = 1 tab(s), Oral, qDay, # 90 tab(s), 0 Refill(s), Pharmacy: [facility], 162, cm, 01/01/25 7:59:00 EST, Height, kg, 01/01/25 7:59:00 EST, Dosing Weight Start Date: 02/25/25 Stop Date: 05/26/25 Status: Ordered Quantity: 90.0 Unit: tab(s) Repeat number: 1 Start: 03-08-2023 End: 08-23-2024 levothyroxine 50 mcg (0.05 m g) oral tablet Dose : 50 mcg = 1 tab(s), Oral, qDay, # 90 tab(s), 2 Refill(s), Pharmacy: [facility] ([facility]), 162, cm, 07/31/23 7:56:00 EDT, Height, kg, 07/31/23 7:56:00 EDT, Dosing Weight Start Date: 11/27/23 Stop Date: 08/23/24 Status: Ordered Start: 03-10-2022 End: 03-05-2023 levothyroxine 50 mcg (0.05 m g) oral tablet Dose : 50 mcg = 1 tab(s), Oral, qDay, X 90 day(s), # 90 tab(s), 3 Refill(s), 03/05/23 9:46:00 EDT, Pharmacy: [facility], 162, cm, 11/09/21 9:38:00 EST, Height, kg, 11/09/21 9:38:00 EST, Dosing Weight Start Date: 03/10/22 Stop Date: 03/05/23 Status: Ordered Start: 02-17-2021 take 1 tablet by neris th once daily levothyroxine 50 mcg (0.05 mg) oral tablet See Instructions, TAKE 1 TABLET DAILY, # 270 tab(s), 3 Refill(s), Pharmacy: [facility], 161.5, cm, 01/25/21 7:32:00 EDT, Height, kg, 01/25/21 7:32:00 EDT, Dosing Weight Start Date: 02/17/21 Status: Ordered take 1 tablet by neris th once daily levothyroxine (SYNTHROID) 50 mcg tablet Take 50 mcg by mouth once daily. Active Magnesium (1 source) Start: 06-13-2025 take 1 tablet by mouth once daily Magnesium 200 mg tablet Active 200 mg PO daily June 13, 2025 12:00am Magnesium complex 400 mg (20 sources) Start: 10-18-2019 Magnesium comp shaun 400 mg qDay, 0 Refill(s) Start Date: 10/18/19 Status: Ordered Medication Dispense Status: Completed Total Allowed Fills: 1 Fills Dispensed: 0 Start: 10-18-2019 Magnesium comp shaun 400 mg qDay, 0 Refill(s) Start Date: 10/18/19 Status: Ordered Repeat number: 1 Start: 10-18-2019 Magnesium comp shaun 400 mg 0 Refill(s) Start Date: 10/18/19 Status: Ordered Repeat number: 1 Start: 10-18-2019 Magnesium comp shaun 400 mg 0 Refill(s) Start Date: 10/18/19 Status: Ordered magnesium oxide,aspartate,citr (TRIPLE MAGNESIUM COMPLEX) 400 mg magnesium cap (6 sources) magnesium oxide,aspartate,citr (TRIPLE MAGNESIUM COMPLEX) 400 mg magnesium cap Take by mouth as directed. Active meloxicam 7.5 mg oral tablet (11 sources) Nonsteroidal Anti-inflammatory Drug Start : 06-10 take 1 tablet by mouth once daily meloxicam 7.5 mg oral tablet TAKE 1 TABLET BY MOUTH EVERY DAY Start Date: 06/10/24 Status: Ordered Repeat number: 1 Start: 09-16-2022 End: 10-16-2022 meloxicam 7.5 mg oral tablet Dose : 7.5 mg = 1 tab(s), Oral, qDay, PRN Pain, Take with food/milk, # 30 tab(s), 0 Refill(s), Pharmacy: [facility]/pharmacy #[id number], 159.7, cm, 09/16/22 13:24:00 EST, Height Start Date: 09/16/22 Stop Date: 10/16/22 Status: Ordered End: 03-19-2025 meloxicam (MOBIC) 15 mg tabl et Take 15 mg by mouth as directed. 03/19/2025 Discontinued (Other) metFORMIN hydrochloride 500 mg oral tablet (20 sources) Biguanide Start: 06-13-2025 take 4 tablets by mouth once daily Metformin 500 mg tablet Active 2000 mg PO daily June 13, 2025 12:00am Start: 01-01-2025 End: 12-27-2025 MetFORMIN (Eqv-Glucophage XR ) 500 mg oral tablet, EXTENDED RELEASE Dose : 1,000 mg = 2 tab(s), Oral, BID, # 360 tab(s), 3 Refill(s), Pharmacy: [facility], 162, cm, 01/01/25 7:59:00 EST, Height, kg, 01/01/25 7:59:00 EST, Dosing Weight Start Date: 01/01/25 Stop Date: 12/27/25 Status: Ordered Medication Dispense Status: Completed Quantity: 360.0 Unit: tab(s) Total Allowed Fills: 4 Fills Dispensed: 0 Start: 12-12-2023 End: 12-06-2024 MetFORMIN (Eqv-Glucophage XR ) 500 mg oral tablet, EXTENDED RELEASE Dose : 1,000 mg = 2 tab(s), Oral, BID, # 60 tab(s), 0 Refill(s), Pharmacy: [facility], 162, cm, 06/12/24 9:41:00 EDT, Height, kg, 06/12/24 9:41:00 EDT, Dosing Weight Start Date: 12/03/24 Status: Ordered Quantity: 60.0 Unit: tab(s) Repeat number: 1 Start: 11-02-2023 MetFORMIN (Eqv -Glucophage XR) 500 mg oral tablet, EXTENDED RELEASE Dose : 500 mg = 1 tab(s), Oral, qDay, in lieu of PCP, # 90 tab(s), 0 Refill(s), [id number] 162, cm, 07/31/23 7:56:00 EDT, Height, kg, 07/31/23 7:56:00 EDT, Dosing Weight Start Date: 11/02/23 Status: Ordered Start: 11-09-2022 MetFORMIN (Eqv -Glucophage XR) 500 mg oral tablet, EXTENDED RELEASE Dose : 500 mg = 1 tab(s), Oral, qDay, # 90 tab(s), 3 Refill(s), Pharmacy: [facility]/pharmacy #[id number], 161, cm, 11/09/22 9:22:00 EST, Height Start Date: 11/09/22 Status: Ordered Start: 08-23-2022 metFORMIN 500 mg oral tablet (IR) Dose : 500 mg = 1 tab(s), Oral, BID, # 180 tab(s), 3 Refill(s), [facility] 161.7, cm, 07/21/22 7:26:00 EDT, Height, kg, 07/21/22 7:26:00 EDT, Dosing Weight Start Date: 08/23/22 Status: Ordered Start: 06-17-2021 End: 06-12-2022 metFORMIN 500 mg oral tablet (IR) Dose : 500 mg = 1 tab(s), Oral, BID, first week take 1 daily, # 180 tab(s), 3 Refill(s), Pharmacy: [facility], 161.5, cm, 05/31/21 9:29:00 EDT, Height, kg, 05/31/21 9:29:00 EDT, Dosing Weight Start Date: 06/17/21 Stop Date: 06/12/22 Status: Ordered metformin HCl (M ETFORMIN ORAL) Take by mouth. Active montelukast 10 mg oral tablet (20 sources) Leukotriene Receptor Antagonist Start: 10-09-2019 take 1 tablet by mouth once daily Montelukast 10 mg tablet Active 10 mg PO daily June 13, 2025 12:00am Multiple Vitamins oral tablet (16 sources) Start: 10-18-2019 take 1 tablet by mouth once daily Multiple Vitamins oral tablet Dose = 1 tab(s), Oral, Daily, # 30 tab(s), 0 Refill(s) Start Date: 10/18/19 Status: Ordered Quantity: 30.0 Unit: tab(s) Repeat number: 1 Start: 10-18-2019 take 1 tablet by neris once daily Multiple Vitamins oral tablet Dose = 1 tab(s), Oral, Daily, # 30 tab(s), 0 Refill(s) Start Date: 10/18/19 Status: Ordered nystatin 812277 unt/ml oral suspension (2 sources) Polyene Antifungal Start: 05-28-2025 End: 06-25-2025 take 1 dose by mouth four times daily nystatin 100,000 units/mL oral suspension Dose : 500,000 unit(s) = 5 mL, Oral, QID, X 14 day(s), # 280 mL, 1 Refill(s), 06/25/25 2:32:00 PM EDT, (swish and swallow), Pharmacy: [facility], Dysphagia Dry mouth, 162, cm, 05/28/25 13:56:00 EDT, Height, kg, 05/28/25 13:56:00 EDT, Dosing Weight Start Date: 05/28/25 Stop Date: 06/25/25 Status: Ordered Medication Dispense Status: Completed Quantity: 280.0 Unit: mL Total Allowed Fills: 2 Fills Dispensed: 0 Indications: Dry mouth, unspecified; Dysphagia, unspecified; pantoprazole 40 mg delayed release oral tablet (1 source) Proton Pump Inhibitor Start: 06-13-2025 take 1 tablet by mouth once daily Pantoprazole 40 mg tablet,delayed release (DR/EC) Active 40 mg PO DAILY 30 June 13, 2025 12:00am pindolol 5 mg oral tablet (6 sources) beta-Adrenergic Victor M Start: 04-02-2010 PINDOLOL 5 MG TAB take one in am and two in pm 0 04/02/2010 Active progesterone 200 mg oral capsule (8 sources) Progesterone Start: 03-19-2025 End: 07-08-2025 take 1 capsule by mouth once daily at bedtime progesterone micronized (PROMETRIUM) 200 mg capsule Take 1 capsule by mouth daily at bedtime. 30 capsule 1 07/08/2025 Active simvastatin 40 mg oral tablet (20 sources) HMG-CoA Reductase Inhibitor Start: 12-06-2011 take 1 tablet by mouth once daily at bedtime simvastatin (ZOCOR) 40 mg ORAL tablet Indications: Other and unspecified hyperlipidemia Take 1 tablet by mouth daily at bedtime. GENERIC OK 90 tablet 4 12/06/2011 Active solifenacin succinate 10 mg oral tablet (8 sources) Cholinergic Muscarinic Antagonist Start: 03-19-2025 take 1 tablet by mouth once daily solifenacin 10 mg tablet Take 1 tablet by mouth once daily. 30 tablet 12 03/19/2025 Active thymol/chlorophylli n (CHLOROPHYLL ORAL) (6 sources) take 50 mg by mouth once daily thymol/chlorophylli n (CHLOROPHYLL ORAL) Take 50 mg by mouth once daily. Active traZODone hydrochloride 50 mg oral tablet (4 sources) Serotonin Reuptake Inhibitor Start: 04-14-2025 End: 04-09-2026 traZODone 50 mg oral tablet Dose : 50 mg = 1 tab(s), Oral, qHS, cancel previous rx for 30 tablets, # 90 tab(s), 3 Refill(s), Pharmacy: [facility], 162, cm, 03/25/25 8:53:00 EDT, Height, kg, 03/25/25 8:53:00 EDT, Dosing Weight Start Date: 04/14/25 Stop Date: 04/09/26 Status: Ordered Medication Dispense Status: Completed Quantity: 90.0 Unit: tab(s) Total Allowed Fills: 4 Fills Dispensed: 0 Start: 03-25-2025 traZODone 50 m g oral tablet Dose : 25 mg = 0.5 tab(s), Oral, qHS, # 15 tab(s), 1 Refill(s), Pharmacy: [facility], 162, cm, 03/25/25 8:53:00 EDT, Height, kg, 03/25/25 8:53:00 EDT, Dosing Weight Start Date: 03/25/25 Status: Ordered Quantity: 15.0 Unit: tab(s) Repeat number: 2 valACYclovir 1000 mg oral tablet (20 sources) Herpesvirus Nucleoside Analog DNA Polymerase Inhibitor, Herpes Simplex Virus Nucleoside Analog DNA Polymerase Inhibitor, Herpes Zoster Virus Nucleoside Analog DNA Polymerase Inhibitor Start: 04-22-2025 valACYclovir 1 g or al tablet Dose : 2 gram(s) = 2 tab(s), Oral, q12h, TAKE 2 TABLETS EVERY 12 HOURS NEEDED, # 4 tab(s), 1 Refill(s), Pharmacy: [facility], 162, cm, 04/22/25 7:53:00 EDT, Height, 68.9, kg, 04/22/25 7:53:00 EDT, Dosing Weight Start Date: 04/22/25 Status: Ordered Medication Dispense Status: Completed Quantity: 4.0 Unit: tab(s) Total Allowed Fills: 2 Fills Dispensed: 0 Start: 02-21-2025 valACYclovir 1 g oral tablet Dose : 2 gram(s) = 2 tab(s), Oral, q12h, TAKE 2 TABLETS EVERY 12 HOURS NEEDED, # 4 tab(s), 0 Refill(s), Pharmacy: [facility], 162, cm, 01/01/25 7:59:00 EST, Height, 70.8, kg, 01/01/25 7:59:00 EST, Dosing Weight Start Date: 02/21/25 Status: Ordered Quantity: 4.0 Unit: tab(s) Repeat number: 1 Start: 10-08-2024 valACYclovir 1 g oral tablet Dose : 2 gram(s) = 2 tab(s), Oral, q12h, TAKE 2 TABLETS EVERY 12 HOURS NEEDED, # 4 tab(s), 1 Refill(s), Pharmacy: [facility], 162, cm, 06/12/24 9:41:00 EDT, Height, 75.2, kg, 06/12/24 9:41:00 EDT, Dosing Weight Start Date: 10/08/24 Status: Ordered Quantity: 4.0 Unit: tab(s) Repeat number: 2 Start: 02-14-2024 valACYclovir 1 g oral tablet Dose : 2 gram(s) = 2 tab(s), Oral, q12h, TAKE 2 TABLETS EVERY 12 HOURS NEEDED, # 4 tab(s), 1 Refill(s), [id number], 162, cm, 12/12/23 8:47:00 EST, Height, 76.3, kg, 12/12/23 8:47:00 EST, Dosing Weight Start Date: 02/14/24 Status: Ordered Start: 12-12-2023 valACYclovir 1 g oral tablet Dose : 2 gram(s) = 2 tab(s), Oral, q12h, TAKE 2 TABLETS EVERY 12 HOURS NEEDED, # 4 tab(s), 1 Refill(s), Pharmacy: [facility] #[id number], 162, cm, 12/12/23 8:47:00 EST, Height, 76.3, kg, 12/12/23 8:47:00 EST, Dosing Weight Start Date: 12/12/23 Status: Ordered Start: 09-02-2022 valACYclovir 1 g oral tablet Dose : 2 gram(s) = 2 tab(s), Oral, q12h, TAKE 2 TABLETS EVERY 12 HOURS NEEDED, # 4 tab(s), 0 Refill(s), [id number], 161.7, cm, 07/21/22 7:26:00 EDT, Height, 73, kg, 07/21/22 7:26:00 EDT, Dosing Weight Start Date: 09/02/22 Status: Ordered Start: 05-05-2021 valACYclovir 1 g oral tablet Dose : 2 gram(s) = 2 tab(s), Oral, q12h, TAKE 2 TABLETS EVERY 12 HOURS NEEDED, # 4 tab(s), 5 Refill(s), [id number], 161.5, cm, 01/25/21 7:32:00 EDT, Height, 78.1, kg, 01/25/21 7:32:00 EDT, Dosing Weight Start Date: 05/05/21 Status: Ordered take 2000 mg by mout h every twelve hours valACYclovir (VALTREX) 1 gram Take 2,000 mg by mouth q 12 HR. Active divalproex sodium 125 mg delayed release oral tablet (20 sources) Mood Stabilizer, Anti-epileptic Agent Start: 01-01-2025 divalproex sodium 125 mg oral delayed release tablet Dose : 125 mg = 1 tab(s), Oral, qDay, take as directed according to tapering schedule, # 42 tab(s), 0 Refill(s), Pharmacy: [facility], 162, cm, 01/01/25 7:59:00 EST, Height, kg, 01/01/25 7:59:00 EST, Dosing Weight Start Date: 01/01/25 Status: Ordered Quantity: 42.0 Unit: tab(s) Repeat number: 1 Start: 01-01-2025 End: 01-31-2025 divalproex sodium 250 mg ora l tablet, extended release Dose : 250 mg = 1 tab(s), Oral, Daily, take as directed according to tapering schedule, # 30 tab(s), 0 Refill(s), Pharmacy: [facility], 162, cm, 01/01/25 7:59:00 EST, Height, kg, 01/01/25 7:59:00 EST, Dosing Weight Start Date: 01/01/25 Stop Date: 01/31/25 Status: Ordered Quantity: 30.0 Unit: tab(s) Repeat number: 1 Start: 12-12-2023 divalproex sod ium 500 mg oral tablet, extended release Dose : 500 mg = 1 tab(s), Oral, qDay, with food. do not crush or chew, # 90 tab(s), 3 Refill(s), Pharmacy: [facility] #[id number], 162, cm, 12/12/23 8:47:00 EST, Height, kg, 12/12/23 8:47:00 EST, Dosing Weight Start Date: 12/12/23 Status: Ordered Quantity: 90.0 Unit: tab(s) Repeat number: 4 Start: 07-03-2023 divalproex sod ium 500 mg oral tablet, extended release Dose : 500 mg = 1 tab(s), Oral, qDay, with food. do not crush or chew, # 90 tab(s), 1 Refill(s), [id number] 161, cm, 06/10/23 9:35:00 EDT, Height, kg, 06/10/23 9:35:00 EDT, Dosing Weight Start Date: 07/03/23 Status: Ordered Start: 01-04-2023 divalproex sod ium 500 mg oral tablet, extended release Dose : 500 mg = 1 tab(s), Oral, qDay, with food. do not crush or chew, # 90 tab(s), 1 Refill(s), Pharmacy: [facility] #[id number], 161, cm, 11/09/22 9:22:00 EST, Height, kg, 11/09/22 9:22:00 EST, Dosing Weight Start Date: 01/04/23 Status: Ordered Start: 07-19-2022 divalproex sod ium 500 mg oral tablet, extended release Dose : 500 mg = 1 tab(s), Oral, qDay, with food. do not crush or chew, # 90 tab(s), 1 Refill(s), Pharmacy: [facility] #[id number], 162, cm, 05/30/22 9:38:00 EDT, Height, kg, 05/30/22 9:38:00 EDT, Dosing Weight Start Date: 07/19/22 Status: Ordered Start: 06-22-2021 End: 06-17-2022 divalproex sodium 500 mg ora l tablet, extended release Dose : 500 mg = 1 tab(s), Oral, qDay, # 90 tab(s), 3 Refill(s), [id number], 161.5, cm, 05/31/21 9:29:00 EDT, Height, kg, 05/31/21 9:29:00 EDT, Dosing Weight Start Date: 06/22/21 Stop Date: 06/17/22 Status: Ordered take 1 tablet by neris th once daily divalproex DR (DEPAKOTE) 500 mg EC tablet Take 500 mg by mouth once daily. Active verapamil hydrochloride 120 mg oral tablet (20 sources) Calcium Channel Victor M Start: 06-13-2025 take 1 tablet by mouth twice daily Verapamil 120 mg tablet Active 120 mg PO TWICE A DAY June 13, 2025 12:00am Start: 07-30-2024 End: 07-25-2025 take 1 tablet by mouth every hour, then take 1 tablet by mouth twice daily verapamil 120 mg/12 hours oral tablet, extended release Dose : 120 mg = 1 tab(s), Oral, BID, X 90 day(s), # 180 tab(s), 3 Refill(s), 07/25/25 9:29:00 AM EDT, Pharmacy: [facility] #[id number], 162, cm, 06/12/24 9:41:00 EDT, Height, kg, 06/12/24 9:41:00 EDT, Dosing Weight Start Date: 07/30/24 Stop Date: 07/25/25 Status: Ordered Medication Dispense Status: Completed Quantity: 180.0 Unit: tab(s) Total Allowed Fills: 4 Fills Dispensed: 0 Start: 08-09-2023 take 1 tablet by neris th every hour, then take 1 tablet by mouth twice daily verapamil 120 mg/12 hours oral tablet, extended release Dose : 120 mg = 1 tab(s), Oral, BID, # 180 tab(s), 3 Refill(s), Pharmacy: [facility] #[id number], 162, cm, 07/31/23 7:56:00 EDT, Height, kg, 07/31/23 7:56:00 EDT, Dosing Weight Start Date: 08/09/23 Status: Ordered Start: 07-04-2023 take 1 tablet by neris th every hour, then take 1 tablet by mouth once daily verapamil 120 mg/12 hours oral tablet, extended release Dose : 120 mg = 1 tab(s), Oral, qDay, # 90 tab(s), 3 Refill(s), Pharmacy: [facility]acy #[id number], 161, cm, 07/04/23 13:04:00 EDT, Height, kg, 07/04/23 13:04:00 EDT, Dosing Weight Start Date: 07/04/23 Status: Ordered Start: 05-30-2022 take 1 tablet by neris twice daily verapamil 120 mg/12 hours oral tablet, extended release See Instructions, TAKE 1 TABLET BY MOUTH TWICE A DAY, # 180 tab(s), 3 Refill(s), Pharmacy: [facility]), 162, cm, 05/30/22 9:38:00 EDT, Height, kg, 05/30/22 9:38:00 EDT, Dosing Weight Start Date: 05/30/22 Status: Ordered Start: 10-11-2021 take 1 tablet by neris twice daily verapamil 120 mg/12 hours oral tablet, extended release See Instructions, TAKE 1 TABLET BY MOUTH TWICE A DAY, # 60 tab(s), 2 Refill(s), Pharmacy: [id number], 162, cm, 07/14/21 9:28:00 EDT, Height, kg, 07/14/21 9:28:00 EDT, Dosing Weight Start Date: 10/11/21 Status: Ordered Start: 04-02-2010 VERAPAMIL 120 MG TAB Take one(1) tablet two(2) times daily. 0 04/02/2010 Active vibegron 75 MG Oral Tablet [Gemtesa] (2 sources) Start: 01-01-2025 Gemtesa 75 mg oral tablet Dose : 75 mg = 1 tab(s), Oral, qDay, # 30 tab(s), 0 Refill(s) Start Date: 01/01/25 Status: Ordered Quantity: 30.0 Unit: tab(s) Repeat number: 1 Vitamin D3 10,000 intl units (250 mcg) oral capsule (20 sources) Start: 10-18-2019 Vitamin D3 10, 000 intl units (250 mcg) oral capsule Dose : 10,000 unit(s) = 1 cap(s), Oral, BID, 0 Refill(s) Start Date: 10/18/19 Status: Ordered Medication Dispense Status: Completed Total Allowed Fills: 1 Fills Dispensed: 0 Start: 10-18-2019 Vitamin D3 10, 000 intl units (250 mcg) oral capsule Dose : 10,000 unit(s) = 1 cap(s), Oral, BID, 0 Refill(s) Start Date: 10/18/19 Status: Ordered Repeat number: 1 Start: 10-18-2019 Vitamin D3 10, 000 intl units (250 mcg) oral capsule Dose : 10,000 unit(s) = 1 cap(s), Oral, qDay, 0 Refill(s) Start Date: 10/18/19 Status: Ordered Repeat number: 1 Start: 10-18-2019 Vitamin D3 10, 000 intl units (250 mcg) oral capsule Dose : 10,000 unit(s) = 1 cap(s), Oral, qDay, 0 Refill(s) Start Date: 10/18/19 Status: Ordered Completed/Discontinued Medications Medication Drug Class(es) Dates Sig (Normalized) Sig (Original) cholecalciferol, vitamin D3, (VITAMIN D3 ORAL) (1 source) End: 03-19-2025 take 84705 [IU] by mouth once daily cholecalciferol, vitamin D3, (VITAMIN D3 ORAL) Take 10,000 Units by mouth once daily. 03/19/2025 Discontinued (Other) estrogens,conj/bazed oxifene (DUAVEE ORAL) (1 source) End: 03-19-2025 estrogens,conj/bazed oxifene (DUAVEE ORAL) Take by mouth. 03/19/2025 Discontinued ethinyl estradiol 0.035 mg / norethindrone 1 mg oral tablet (1 source) Estrogen Start: 07-04-2012 End: 03-19-2025 take 1 tablet by mouth once daily, then take 7 tablets by mouth once Norethindrone-Eth Estradiol (ORTHO-NOVUM , ,) 1-35 mg-mcg per tablet Indications: Menstrual disorder Take 1 tablet by mouth once daily. for menstrual/hormonal reasons skip last 7 placebo pills take continuously 3 Package 4 07/04/2012 03/19/2025 Discontinued MULTIVITAMIN TAB (1 source) Start: 04-02-2010 End: 03-19-2025 MULTIVITAMIN TAB Take one(1) tablet daily. 0 04/02/2010 03/19/2025 Discontinued (Other) omeprazole 20 mg delayed release oral capsule (20 sources) Proton Pump Inhibitor Start: 10-09-2019 End: 06-13-2025 take 1 capsule by mouth once daily Omeprazole 20 mg capsule,delayed release(DR/EC) Discontinued 20 mg PO daily June 13, 2025 12:00am June 13, 2025 10:27am orlistat 120 mg oral capsule (1 source) Intestinal Lipase Inhibitor Start: 03-25-2011 End: 03-19-2025 take 1 capsule by mouth three times daily at mealtime Orlistat 120 mg ORAL capsule Indications: Abnormal weight gain Take 120 mg by mouth three times daily with meals. 270 capsule 4 03/25/2011 03/19/2025 Discontinued (Other) SUMAtriptan 50 mg oral tablet (1 source) Serotonin-1b and Serotonin-1d Receptor Agonist Start: 12-26-2011 End: 03-19-2025 sumatriptan (IMITREX) 50 mg ORAL tablet Indications: Migraine Take 1 tablet by mouth as needed. DIRECTED PO FOR MIGRAINE HEADACHE 12 tablet 6 12/26/2011 03/19/2025 Discontinued (Other) ubidecarenone 30 mg oral capsule (1 source) Start: 04-09-2010 End: 03-19-2025 take 50-100 mg by mouth once daily COENZYME Q10 30 MG CAP Indications: Other and unspecified hyperlipidemia ONE PO DAILY ([facility] ONLY) 50 to 100mg daily 90 4 04/09/2010 03/19/2025 Discontinued vibegron (GEMTESA) 75 mg tablet (1 source) End: 03-19-2025 take 1 tablet by mouth once daily vibegron (GEMTESA) 75 mg tablet Take 75 mg by mouth once daily. 03/19/2025 Discontinued Vitamin B Complex (1 source) Start: 04-09-2010 End: 03-19-2025 vitamin b complex(B COMPLEX 1 TAB) Indications: Fatigue one po daily 90 3 04/09/2010 03/19/2025 Discontinued (Other) Problems Active Problems Problem Classification Problem Date Documented Da te Episodic/Chronic Administrative/social admission (4 sources) Stress 03-25-2025 Episodic Allergic reactions (11 sources) Environmental allergy 07-31-2023 Episodic Benign neoplasm of uterus (12 sources) Subserous leiomyoma of uterus; Translations: [Subserosal leiomyoma of uterus] Onset: 09-23-2010 Resolved: 03-19-2025 09-23-2010 Episodic Cardiac dysrhythmias (1 source) Palpitations; Translations: [Palpitations] Episodic Diabetes mellitus without complication (20 sources) Diabetes mellitus; Translations: [Type 2 diabetes mellitus] Onset: 12-12-2023 06-23-2020 Chronic Diseases of mouth; excluding dental (5 sources) Xerostomia; Translations: [Dry mouth, unspecified] 05-24-2025 Episodic Disorders of lipid metabolism (8 sources) Pure hypercholesterolemia ; Translations: [Pure hypercholesterolemia , unspecified] Chronic Genitourinary symptoms and ill-defined conditions (9 sources) Mixed incontinence; Translations: [Urge incontinence of urine] Onset: 03-12-2024 Chronic Genitourinary symptoms and ill-defined conditions (18 sources) Nocturia 05-10-2022 Episodic Headache; including migraine (10 sources) Migraine; Translations: [Migraine, unspecified, not intractable, without status migrainosus] 03-18-2020 Chronic Headache; including migraine (1 source) Frequent headache; Translations: [Frequent headaches] 06-13-2025 Episodic Heart valve disorders (20 sources) Mitral valve prolapse; Translations: [Non-rheumatic mitral valve prolapse] 06-05-2020 Chronic Mycoses (3 sources) Candidiasis of mouth 05-24-2025 Episodic Osteoarthritis (7 sources) Osteoarthritis of right knee joint; Translations: [Arthritis] 06-12-2024 Chronic Other connective tissue disease (8 sources) Fibromyalgia; Translations: [Fibromyalgia] 10-07-2019 Episodic Other connective tissue disease (3 sources) Foot pain 03-13-2024 Episodic Other connective tissue disease (4 sources) Trigger thumb of right hand 03-25-2025 Episodic Other ear and sense organ disorders (6 sources) Decreased hearing 07-31-2023 Chronic Other gastrointestinal disorders (2 sources) Dysphagia 05-28-2025 Episodic Other gastrointestinal disorders (2 sources) Heartburn; Translations: [Heartburn] 06-13-2025 Episodic Other gastrointestinal disorders (2 sources) Difficulty swallowing pills; Translations: [Dysphagia, unspecified] 06-13-2025 Episodic Other gastrointestinal disorders (2 sources) Dysphagia, unspecified; Translations: [Dysphagia, unspecified] Onset: 05-28-2025 Episodic Other inflammatory condition of skin (13 sources) Psoriatic arthritis 06-07-2023 Chronic Other nervous system disorders (3 sources) Bad taste in mouth 05-24-2025 Episodic Other non-traumatic joint disorders (1 source) Knee joint effusion; Translations: [Effusion, right knee] Episodic Other nutritional; endocrine; and metabolic disorders (2 sources) Body mass index (BMI) 30.0-30.9, adult; Translations: [Body mass index [BMI] 30.0-30.9, adult] Onset: 03-12-2024 Chronic Other and delivery including normal (12 sources) Uterine contractions present 11-16-2020 Episodic Other skin disorders (4 sources) Skin tag 01-11-2021 Episodic Other skin disorders (4 sources) Loss of hair 03-25-2025 Episodic Other upper respiratory disease (2 sources) Hoarse; Translations: [Dysphonia] 06-13-2025 Episodic Other upper respiratory disease (2 sources) Other diseases of pharynx; Translations: [Other diseases of pharynx] Onset: 05-28-2025 Episodic Other upper respiratory infections (4 sources) Sore throat symptom 12-15-2020 Episodic Otitis media and related conditions (5 sources) Otitis media; Translations: [Dysfunction of eustachian tube] 12-15-2020 Episodic Residual codes; unclassified (19 sources) Insomnia 11-09-2021 Episodic Residual codes; unclassified (1 source) Localized edema; Translations: [Localized edema] Episodic Skin and subcutaneous tissue infections (2 sources) Paronychia of finger 07-21-2022 Episodic Sprains and strains (1 source) Sprain of knee; Translations: [Sprain of other specified parts of right knee, subsequent encounter] Episodic Thyroid disorders (20 sources) Hypothyroidism; Translations: [Hypothyroidism, unspecified] Onset: 06-24-2025 10-07-2019 Chronic Unclassified (20 sources) Drug therapy finding 03-18-2020 Unclassified (20 sources) Patient encounter status 11-09-2021 Viral infection (20 sources) Herpes labialis 03-18-2020 Episodic Past or Other Problems Problem Classification Problem Date Documented Date Episodic/Chronic Abdominal pain (6 sources) Left flank pain; Translations: [Unspecified abdominal pain] Onset: 09-23-2010 Resolved: 03-19-2025 03-19-2025 Episodic Immunizations and screening for infectious disease (2 sources) Encounter for screening for human papillomavirus (HPV); Translations: [Encounter for screening for human papillomavirus (HPV)] Onset: 03-12-2024 Episodic Malaise and fatigue (10 sources) Fatigue; Translations: [Other fatigue] Resolved: 03-19-2025 05-31-2021 Episodic Menopausal disorders (8 sources) Menopausal and female climacteric states; Translations: [Premature menopause] Onset: 03-12-2024 Resolved: 04-09-2010 Chronic Menstrual disorders (6 sources) Amenorrhea; Translations: [Amenorrhea, unspecified] Onset: 09-23-2010 Resolved: 03-19-2025 03-19-2025 Chronic Other eye disorders (6 sources) Acquired nasolacrimal duct obstruction; Translations: [Acquired stenosis of right nasolacrimal duct] Onset: 01-23-2020 Resolved: 01-23-2020 01-23-2020 Episodic Other lower respiratory disease (6 sources) Snoring; Translations: [Snoring] Onset: 04-09-2010 04-09-2010 Episodic Other screening for suspected conditions (not mental disorders or infectious disease) (20 sources) Stool DNA-based colorectal cancer screening positive; Translations: [Encounter for screening mammogram for malignant neoplasm of breast] Onset: 12-05-2011 Resolved: 03-19-2025 12-06-2021 Episodic Residual codes; unclassified (2 sources) Insomnia, unspecified; Translations: [Insomnia, unspecified] Onset: 03-12-2024 Episodic Residual codes; unclassified (7 sources) Non-menopausal hot flash; Translations: [Flushing] Onset: 04-09-2010 03-19-2025 Episodic Results Test Name Value Interpretation Reference Range Facility Gastroenterology Visit Repor ton 09-05-2025 Gastroenterology Visit Report [facility] [address] [place] [address] OFFICE VISIT Date of Service: 09/05/25 MR#: [id number] Acct: [id number] Name: NIMESH ALCAZAR Rep #: [id number] : 1970 Provider: IMTIAZ Chavis Age/Sex: 54/F Location: [email or web address] Status: Signed Intake Intake Visit Reasons: throat gonzalez Chief Complaint: Heartburn Allergies erythromycin base Allergy (Intermediate, Verified 09/05/25 12:53) Nausea sulfamethoxazole (From ) Allergy (Intermediate, Verified 09/05/25 12:53) Rash, nausea trimethoprim (From ) Allergy (Intermediate, Verified 09/05/25 12:53) Rash, nausea Medications ???Medication ???Instructions ???Recorded ???Confirmed ???Type atenolol 25 mg tablet 25 mg PO QDAY 06/13/25 09/05/25 Hi story biotin 5,000 mcg chewable tablet mcg PO 06/13/25 09/05/25 History chlorophyll copper complex 10 mg mg PO 06/13/25 09/05/25 History tablet cholecalciferol (vitamin D3) 250 250 mcg PO BID 06/13/25 09/05/25 H istory mcg (10,000 unit) capsule cinnamon bark 500 mg capsule 500 mg PO QDAY 06/13/25 09/05/25 H istory (Cinnamon) cranberry extract 250 mg capsule 500 mg PO QDAY 06/13/25 09/05/25 H istory ferrous sulfate 325 mg (65 mg 325 mg PO QDAY 06/13/25 09/05/25 H istory iron) tablet (Feosol) furosemide 20 mg tablet (Lasix) 20 mg PO QAM 06/13/25 09/05/25 His tory levocetirizine 5 mg tablet 5 mg PO QDAY 06/13/25 09/05/25 His tory levothyroxine 50 mcg capsule 50 mcg PO QDAY 06/13/25 09/05/25 H istory magnesium 200 mg tablet 200 mg PO QDAY 06/13/25 09/05/25 H istory metformin 500 mg tablet 2,000 mg PO QDAY 06/13/25 09/05/25 History montelukast 10 mg tablet 10 mg PO QDAY 06/13/25 09/05/25 Hi story pantoprazole 40 mg tablet,delayed 40 mg PO DAILY #30 tabs 06/13/25 09/05/25 Rx release simvastatin 40 mg tablet 40 mg PO QDAY 06/13/25 09/05/25 Hi story verapamil 120 mg tablet 120 mg PO BID 06/13/25 09/05/25 Hi story omeprazole 40 mg capsule,delayed 40 mg PO QDAY #30 caps 09/05/25 Rx release PFSH Medical History 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 GI established 06/13/2025 with Netta Gonzalez [employer] for concerns of prolonged dry mouth, difficulty swallowing and hoarseness. Patient with significant stress in her life due to her parents passing away in February 2025. Recent infected tooth that required antibiotics and subsequently developed thrush in her mouth and throat which was treated with nystatin and fluconazole. Patient takes omeprazole 20 mg daily. Start pantoprazole 40 mg daily, use Biotene mouthwash and test for Sjogren syndrome. SS-A/Ro IgG antibody negative and SS???B/LA IgG antibody negative OV 09/05/2025: Patient continues to have burning in her esophagus, lack of appetite and change in taste. Foods all taste better. She tried pantoprazole 40 mg twice a day but this did not help so she went back to omeprazole. She believes she is only taking 20 mg of omeprazole. Patient is becoming frustrated by her symptoms and wishes she had an answer. ROS Const Constitutional: No fatigue, fever(s) or weight change ENT ENT: No difficulty swallowing Gastro GI: Positive for bloating, heartburn and excessive flatus; No abdominal pain, belching, change in bowel habits, change in stool character, coffee ground emesis, constipation, cramping, diarrhea, difficulty swallowing, feeling full early, incontinent of stools, Vomiting blood/hematemesis, Blood in stool, loose stools, Black,tarry stools, nausea/dyspepsia, pain with swallowing, vomiting or other Musc Musculoskeletal: Positive for back pain and Arthritis; No joint pain Skin Skin: No yellowing of the eye or itchy eyes Psych Psychiatric: No anxiety and No depression Endo Endocrine: No fatigue or weight change Aller/Imm Allergy/Immunologic: No itchy eyes Sergio/Lymp Hematologic/Lymphatic : No easy bleeding or easy bruising Exam Const General: cooperative, healthy appearing and comfortable Nutritional Appea (more content not included)... Normal [facility] Sjogren's Antibodies A/Bon 0 07-23-2025 ANTI-SS-A < 0.2 Normal 0.0-0.9 [facility] Comment on above: Performed By: #### L 3100.9100 #### [facility] [address] [place], [address] ANTI-SS-B < 0.2 Normal 0.0-0.9 [facility] Comment on above: Result Comment: Perf ormed at: - [facility] [address] [id number] Cigar Bander Hand: Jayant Caldera PhD, Phone: [phone] Performed By: #### L 3100.9100 #### [facility] [address] [place], [address] .Auto Diffon 06-24-2025 Basophil, Absolute 0.0 10 3/mcL Normal 0.0-0.3 [facility] Comment on above: Performed By: #### L IPID, A1C, TSH, CBC, FT4, GFR, ADIFF, ANEU, CMP #### [address] [address] Basophils/100 WBC (Bld) 0.7 % Normal 0.0-2.5 [facility] Comment on above: Performed By: #### L IPID, A1C, TSH, CBC, FT4, GFR, ADIFF, ANEU, CMP #### [address] [address] Eosinophil, Absolute 0.1 10 3/mcL Normal 0.0-0.7 [facility] Comment on above: Performed By: #### L IPID, A1C, TSH, CBC, FT4, GFR, ADIFF, ANEU, CMP #### [address] [address] Eosinophils/100 WBC (Bld) 2.5 % Normal 0.0-6.0 [facility] Comment on above: Performed By: #### L IPID, A1C, TSH, CBC, FT4, GFR, ADIFF, ANEU, CMP #### [address] [address] Lymphocyte, Absolute 2.1 10 3/mcL Normal 0.9-4.3 [facility] Comment on above: Performed By: #### L IPID, A1C, TSH, CBC, FT4, GFR, ADIFF, ANEU, CMP #### [address] [address] Lymphocytes/100 WBC (Bld) 37.8 % Normal 20.0-40.0 [facility] Comment on above: Performed By: #### L IPID, A1C, TSH, CBC, FT4, GFR, ADIFF, ANEU, CMP #### [address] [address] Monocyte, Absolute 0.6 10 3/mcL Normal 0.1-1.4 [facility] Comment on above: Performed By: #### L IPID, A1C, TSH, CBC, FT4, GFR, ADIFF, ANEU, CMP #### [address] [address] Monocytes/100 WBC (Bld) 10.0 % Normal 2.0-13.0 [facility] Comment on above: Performed By: #### L IPID, A1C, TSH, CBC, FT4, GFR, ADIFF, ANEU, CMP #### [address] [address] Neutrophils/100 WBC (Bld) 49.0 % Low 50.0-75.0 [facility] Comment on above: Performed By: #### L IPID, A1C, TSH, CBC, FT4, GFR, ADIFF, ANEU, CMP #### [address] [address] .GFRon 06-24-2025 Estimated Glomerular Filtration Rate 86 ml/min/1.73sqm Normal [facility] Comment on above: Result Comment: Stages of Chronic Kidney Disease (CKD) Stage Description eGFR(ml/min/1.73 sq.m.) CKD 1 Normal kidney function or >=90 normal kindney function with possible kidney damage (ex. Proteinuria) CKD 2 Kidney damage with mild loss 60-89 of kidney function CKD 3a Mild to moderate loss of kidney 45-59 function CKD 3b Moderate to severe loss of 30-44 of kindey function CKD 4 Severe loss of kidney function 15-29 CKD 5 Kidney failure <15 Note: (go live 2024) the eGFR calculation was updated to the 2020 CKD-EPI creatinine equation without a race factor to calculate the eGFR results. Performed By: #### C BC, ANEU, ADIFF, FES #### [address] [address] .NEUABSon 06-24-2025 Neutrophil, Absolute 2.7 10 3/mcL Normal 2.3-8.1 [facility] Comment on above: Performed By: #### L IPID, A1C, TSH, CBC, FT4, GFR, ADIFF, ANEU, CMP #### [address] [address] A1Con 06-24-2025 Glucose [Mass/Vol] 126 mg/dL Normal [facility] Comment on above: Result Comment: Yamileth mated Average Glucose calculated by equation ((28.7xA1C)-46.7) Estimated average glucose (eAG) is a calculated value from Hemoglobin A1C and is parts sales representative of the average blood glucose level in the last 2-3 month period. Normal range: less than 114 mg/dL Performed By: #### C BC, ANEU, ADIFF, FES #### [address] [address] HbA1c (Bld) [Mass fraction] 6.0 % Normal 4.3-6.4 [facility] Comment on above: Performed By: #### C BC, ANEU, ADIFF, FES #### [place] [address] CBCon 06-24-2025 Erythrocyte distribution width (RBC) [Ratio] 14.1 % Normal 11.5-15.5 [facility] Comment on above: Performed By: #### L IPID, A1C, TSH, CBC, FT4, GFR, ADIFF, ANEU, CMP #### [place] [address] Hematocrit (Bld) [Volume fraction] 38.9 % Normal 34.0-46.0 [facility] Comment on above: Performed By: #### L IPID, A1C, TSH, CBC, FT4, GFR, ADIFF, ANEU, CMP #### [place] [address] Hgb 13.2 G/dL Normal 12.0-16.0 [facility] Comment on above: Performed By: #### L IPID, A1C, TSH, CBC, FT4, GFR, ADIFF, ANEU, CMP #### [place] [address] MCH (RBC) [Entitic mass] 28.2 pg Normal 27.0-33.0 [facility] Comment on above: Performed By: #### L IPID, A1C, TSH, CBC, FT4, GFR, ADIFF, ANEU, CMP #### [place] [address] MCHC 33.8 G/dL Normal 32.0-36.0 [facility] Comment on above: Performed By: #### L IPID, A1C, TSH, CBC, FT4, GFR, ADIFF, ANEU, CMP #### [place] [address] MCV (RBC) [Entitic vol] 83.5 fL Normal 80.0-99.0 [facility] Comment on above: Performed By: #### L IPID, A1C, TSH, CBC, FT4, GFR, ADIFF, ANEU, CMP #### [address] [address] Platelet 234 10 3/mcL Normal 150-450 [facility] Comment on above: Performed By: #### L IPID, A1C, TSH, CBC, FT4, GFR, ADIFF, ANEU, CMP #### [address] [address] Platelet mean volume (Bld) [Entitic vol] 7.7 fL Normal 6.6-10.5 [facility] Comment on above: Performed By: #### L IPID, A1C, TSH, CBC, FT4, GFR, ADIFF, ANEU, CMP #### [address] [address] RBC 4.66 10 6/mcL Normal 4.10-5.30 [facility] Comment on above: Performed By: #### L IPID, A1C, TSH, CBC, FT4, GFR, ADIFF, ANEU, CMP #### [address] [address] WBC 5.5 10 3/mcL Normal 4.5-10.8 [facility] Comment on above: Performed By: #### L IPID, A1C, TSH, CBC, FT4, GFR, ADIFF, ANEU, CMP #### [address] [address] CMPon 06-24-2025 Albumin Level 3.5 G/dL Normal 3.5-5.0 [facility] Comment on above: Performed By: #### C BC, ANEU, ADIFF, FES #### [address] [address] Albumin/Globulin [Mass ratio] 1.1 {ratio} Normal 1.1-2.5 [facility] Comment on above: Performed By: #### C BC, ANEU, ADIFF, FES #### [address] [address] ALP [Catalytic activity/Vol] 96 U/L Normal 40-135 [facility] Comment on above: Performed By: #### C BC, ANEU, ADIFF, FES #### [address] [address] ALT [Catalytic activity/Vol] 21 U/L Normal 14-59 [facility] Comment on above: Performed By: #### C BC, ANEU, ADIFF, FES #### [address] [address] AST [Catalytic activity/Vol] 16 U/L Normal 10-40 [facility] Comment on above: Performed By: #### C BC, ANEU, ADIFF, FES #### [address] [address] Bili Total 0.3 mg/dL Normal 0.2-1.0 [facility] Comment on above: Result Comment: Use of this assay is not recommended for patients undergoing treatment with eltrombopag due to the potential for falsely elevated results. Performed By: #### C BC, ANEU, ADIFF, FES #### [place] [address] BUN/Creatinine Ratio 14 ratio Normal 7-27 [facility] Comment on above: Performed By: #### C BC, ANEU, ADIFF, FES #### [address] [address] Calcium [Mass/Vol] 9.5 mg/dL Normal 8.4-10.2 [facility] Comment on above: Performed By: #### C BC, ANEU, ADIFF, FES #### [address] [address] Chloride [Moles/Vol] 103 mmol/L Normal 98-107 [facility] Comment on above: Performed By: #### C BC, ANEU, ADIFF, FES #### [address] [address] CO2 [Moles/Vol] 31 mmol/L High 22-29 [facility] Comment on above: Performed By: #### C BC, ANEU, ADIFF, FES #### [address] [address] Creatinine [Mass/Vol] 0.81 mg/dL Normal 0.51-0.95 [facility] Comment on above: Performed By: #### C BC, ANEU, ADIFF, FES #### [address] [address] Electrolyte Balance 5.0 mEq/L Normal 4.0-15.0 [facility] Comment on above: Performed By: #### C BC, ANEU, ADIFF, FES #### [address] [address] Globulin 3.2 G/dL Normal 2.7-4.4 [facility] Comment on above: Performed By: #### C BC, ANEU, ADIFF, FES #### [place] [address] Glucose [Mass/Vol] 116 mg/dL High 70-105 [facility] Comment on above: Performed By: #### C BC, ANEU, ADIFF, FES #### [address] [address] Potassium [Moles/Vol] 4.0 mmol/L Normal 3.5-5.1 [facility] Comment on above: Performed By: #### C BC, ANEU, ADIFF, FES #### [address] [address] Sodium [Moles/Vol] 139 mmol/L Normal 136-145 [facility] Comment on above: Performed By: #### C BC, ANEU, ADIFF, FES #### [address] [address] Total Protein 6.7 G/dL Normal 6.4-8.2 [facility] Comment on above: Performed By: #### C BC, ANEU, ADIFF, FES #### [address] [address] Urea nitrogen [Mass/Vol] 11 mg/dL Normal 7-18 [facility] Comment on above: Performed By: #### C BC, ANEU, ADIFF, FES #### [address] [address] FT4on 06-24-2025 Free T4 [Mass/Vol] 0.97 ng/dL Normal 0.76-1.46 [facility] Comment on above: Performed By: #### L IPID, A1C, TSH, CBC, FT4, GFR, ADIFF, ANEU, CMP #### [address] [place], [place] [address] LABORATORYOrdered By: SYSTEM SYSTEM on 06-24-2025 Albumin BCP dye [Mass/Vol] 3.5 G/dL Normal 3.5 - 5.0 G/dL AO ADM SS Albumin/Globulin [Mass ratio] 1.1 {ratio} Normal 1.1 - 2.5 ratio AO ADM SS ALP [Catalytic activity/Vol] 96 U/L Normal 40 - 135 U/L AO ADM SS ALT With P-5'-P [Catalytic activity/Vol] 21 U/L Normal 14 - 59 U/L AO ADM SS AST With P-5'-P [Catalytic activity/Vol] 16 U/L Normal 10 - 40 U/L AO ADM SS Basophils (Bld) [#/Vol] 0.0 103/mcL Normal 0.0 - 0.3 10^3/mcL AO Workflow SS Basophils/100 WBC (Bld) 0.7 % Normal 0.0 - 2.5 % AO Workflow SS Bilirubin [Mass/Vol] 0.3 mg/dL Normal 0.2 - 1 .0 mg/dL AO ADM SS Comment on above: Interpretive Data: U se of this assay is not recommended for patients undergoing treatment with eltrombopag due to the potential for falsely elevated results. Calcium [Mass/Vol] 9.5 mg/dL Normal 8.4 - 10. 2 mg/dL AO ADM SS Chloride [Moles/Vol] 103 mmol/L Normal 98 - 10 7 mmol/L AO ADM SS CO2 [Moles/Vol] 31 mmol/L High 22 - 29 mmol/L AO ADM SS Creatinine [Mass/Vol] 0.81 mg/dL Normal 0.51 - 0.95 mg/dL AO ADM SS Electrolyte Balance 5.0 mEq/L Normal 4.0 - 15 .0 mEq/L AO ADM SS Eosinophil, Absolute 0.1 103/mcL Normal 0.0 - 0 .7 10^3/mcL AO Workflow SS Eosinophils/100 WBC (Bld) 2.5 % Normal 0.0 - 6.0 % AO Workflow SS Erythrocyte distribution width (RBC) [Ratio] 14.1 % Normal 11.5 - 15.5 % AO Workflow SS Estimated Glomerular Filtration Rate 86 ml/min/1.73sqm Invalid Interpretation Code AO Chemistry S Comment on above: Interpretive Data: Stages of Chronic Kidney Disease (CKD) Stage Description eGFR(ml/min/1.73 sq.m.) CKD 1 Normal kidney function or >=90 normal kindney function with possible kidney damage (ex. Proteinuria) CKD 2 Kidney damage with mild loss 60-89 of kidney function CKD 3a Mild to moderate loss of kidney 45-59 function CKD 3b Moderate to severe loss of 30-44 of kindey function CKD 4 Severe loss of kidney function 15-29 CKD 5 Kidney failure <15 Note: (go live 2024) the eGFR calculation was updated to the 2020 CKD-EPI creatinine equation without a race factor to calculate the eGFR results. Free T4 [Mass/Vol] 0.97 ng/dL Normal 0.76 - 1. 46 ng/dL AO ADM SS Globulin 3.2 G/dL Normal 2.7 - 4.4 G/dL AO ADM SS Glucose [Mass/Vol] 126 mg/dL Invalid Interpretation Code AO Chemistry S Comment on above: Interpretive Data: E stimated average glucose (eAG) is a calculated value from Hemoglobin A1C and is parts sales representative of the average blood glucose level in the last 2-3 month period. Normal range: less than 114 mg/dL Glucose [Mass/Vol] 116 mg/dL High 70 - 105 mg/dL AO ADM SS HbA1c (Bld) [Mass fraction] 6.0 % Normal 4.3 - 6.4 % AO ADM SS Hematocrit (Bld) [Volume fraction] 38.9 % Normal 34.0 - 46.0 % AO Workflow SS Hemoglobin (Bld) [Mass/Vol] 13.2 G/dL Normal 12.0 - 16.0 G/dL AO Workflow SS Lymphocytes (Bld) [#/Vol] 2.1 103/mcL Normal 0.9 - 4.3 10^3/mcL AO Workflow SS Lymphocytes/100 WBC (Bld) 37.8 % Normal 20.0 - 40.0 % AO Workflow SS MCH (RBC) [Entitic mass] 28.2 pg Normal 27.0 - 33.0 pg AO Workflow SS MCHC 33.8 G/dL Normal 32.0 - 36.0 G/dL AO Workflow SS MCV (RBC) [Entitic vol] 83.5 fL Normal 80.0 - 99.0 fL AO Workflow SS Monocytes (Bld) [#/Vol] 0.6 103/mcL Normal 0.1 - 1.4 10^3/mcL AO Workflow SS Monocytes/100 WBC (Bld) 10.0 % Normal 2.0 - 13.0 % AO Workflow SS Neutrophils (Bld) [#/Vol] 2.7 103/mcL Normal 2.3 - 8.1 10^3/mcL AO Workflow SS Neutrophils/100 WBC (Bld) 49.0 % Low 50.0 - 75.0 % AO Workflow SS Platelet mean volume (Bld) [Entitic vol] 7.7 fL Normal 6.6 - 10.5 fL AO Workflow SS Platelets (Bld) [#/Vol] 234 103/mcL Normal 150 - 450 10^3/mcL AO Workflow SS Potassium [Moles/Vol] 4.0 mmol/L Normal 3.5 - 5.1 mmol/L AO ADM SS Protein [Mass/Vol] 6.7 G/dL Normal 6.4 - 8.2 G/dL AO ADM SS RBC (Bld) [#/Vol] 4.66 106/mcL Normal 4.10 - 5.3 0 10^6/mcL AO Workflow SS Sodium [Moles/Vol] 139 mmol/L Normal 136 - 145 mmol/L AO ADM SS TSH Qn 1.64 m[IU]/L Normal 0.36 - 3.74 mcIU/mL AO ADM SS Urea nitrogen [Mass/Vol] 11 mg/dL Normal 7 - 18 mg/dL AO ADM SS Urea nitrogen/Creatinine [Mass ratio] 14 ratio Normal 7 - 27 ratio AO ADM SS WBC (Bld) [#/Vol] 5.5 103/mcL Normal 4.5 - 10.8 10^3/mcL AO Workflow SS LABORATORYOrdered By: Marcos Waters on 06-24-2025 Cholesterol [Mass/Vol] 146 mg/dL Normal 0 - 200 mg/dL AO ADM SS Comment on above: Interpretive Data: C holesterol Reference Interval: Less than 200 Desirable 200-239 Borderline high risk 240 and above High risk Cholesterol in HDL [Mass/Vol] 45 mg/dL Normal 40 - 60 mg/dL AO ADM SS Cholesterol in LDL [Mass/Vol] 70 mg/dL Normal 0 - 130 mg/dL AO ADM SS Triglyceride [Mass/Vol] 154 mg/dL High 0 - 150 mg/dL AO ADM SS Comment on above: Interpretive Data: T riglyceride Reference Interval: Less than 150 Normal 150-199 Borderline high risk 200-499 High risk 500 or higher Very high risk LIPIDon 06-24-2025 Cholesterol [Mass/Vol] 146 mg/dL Normal 0-200 [facility] Comment on above: Result Comment: Chol esterol Reference Interval: Less than 200 Desirable 200-239 Borderline high risk 240 and above High risk Performed By: #### C ALENA, ANEU, ADIFF, FES #### [address] [address] Cholesterol in HDL [Mass/Vol] 45 mg/dL Normal 40-60 [facility] Comment on above: Performed By: #### C ALENA, ANEU, ADIFF, FES #### [address] [address] Cholesterol in LDL [Mass/Vol] 70 mg/dL Normal 0-130 [facility] Comment on above: Performed By: #### C ALENA, ANEU, ADIFF, FES #### [address] [address] Triglyceride [Mass/Vol] 154 mg/dL High 0-150 [facility] Comment on above: Result Comment: Trig lyceride Reference Interval: Less than 150 Normal 150-199 Borderline high risk 200-499 High risk 500 or higher Very high risk Performed By: #### C BC, ANEU, ADIFF, FES #### [address] [address] TSHon 06-24-2025 TSH Qn 1.64 m[IU]/L Normal 0.36-3.74 [facility] Comment on above: Performed By: #### L IPID, A1C, TSH, CBC, FT4, GFR, ADIFF, ANEU, CMP #### [address] [place], [place] [address] Gastroenterology Visit Repor ton 06-13-2025 Gastroenterology Visit Report [facility] [address] [place] [address] OFFICE VISIT Date of Service: 06/13/25 MR#: [id number] Acct: [id number] Name: NIMESH ALCAZAR Rep #: [id number] : 1970 Provider: HERMELINDO villa Age/Sex: 54/F Location[place] [facility] Status: Signed Intake Intake Visit Reasons: Dry Mouth/Dysphagia Chief Digital Media Officer Required: No Accompanied by: Self Is patient in pain?: No Allergies erythromycin base Allergy (Intermediate, Verified 06/13/25 10:06) Nausea sulfamethoxazole (From ) Allergy (Intermediate, Verified 06/13/25 10:06) Rash, nausea trimethoprim (From ) Allergy (Intermediate, Verified 06/13/25 10:06) Rash, nausea Medications ???Medication ???Instructions ???Recorded ???Confirmed ???Type atenolol 25 mg tablet 25 mg PO QDAY 06/13/25 06/13/25 Hi story biotin 5,000 mcg chewable tablet mcg PO 06/13/25 06/13/25 History chlorophyll copper complex 10 mg mg PO 06/13/25 06/13/25 History tablet cholecalciferol (vitamin D3) 250 250 mcg PO BID 06/13/25 06/13/25 H istory mcg (10,000 unit) capsule cinnamon bark 500 mg capsule 500 mg PO QDAY 06/13/25 06/13/25 H istory (Cinnamon) cranberry extract 250 mg capsule 500 mg PO QDAY 06/13/25 06/13/25 H istory ferrous sulfate 325 mg (65 mg 325 mg PO QDAY 06/13/25 06/13/25 H istory iron) tablet (Feosol) furosemide 20 mg tablet (Lasix) 20 mg PO QAM 06/13/25 06/13/25 His tory levocetirizine 5 mg tablet 5 mg PO QDAY 06/13/25 06/13/25 His tory levothyroxine 50 mcg capsule 50 mcg PO QDAY 06/13/25 06/13/25 H istory magnesium 200 mg tablet 200 mg PO QDAY 06/13/25 06/13/25 H istory metformin 500 mg tablet 2,000 mg PO QDAY 06/13/25 06/13/25 History montelukast 10 mg tablet 10 mg PO QDAY 06/13/25 06/13/25 Hi story pantoprazole 40 mg tablet,delayed 40 mg PO DAILY #30 tabs 06/13/25 06/13/25 Rx release simvastatin 40 mg tablet 40 mg PO QDAY 06/13/25 06/13/25 Hi story verapamil 120 mg tablet 120 mg PO BID 06/13/25 06/13/25 Hi story Nurse's Note: Stopped taking Solifenacin Succinate 10mg and progesterone 200mg thinking possibly they were causing her dry mouth. She stopped applying the Estradiol patch 0.5mg 2x week for the same reason. 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 She reports that she has had a significant increase in her amount of daily stress since the passing of her parents, 11 days apart, in February this year. She had an infected tooth that required antibiotics and extraction, following this she had a thrush infection her mouth and throat. She was treated unsuccessfully with Nystatin swish and swallow, was given Diflucan. She had a negative throat culture on 05.30.25. She continues to have dry mouth and throat that she feels is causing her difficulty in swallowing some pills and food. She has used Biotene mouthwash in the past, but not consistently. She has damari taking omeprazole 20mg daily for years. She reports occasional reflux and mild burning in her upper throat. She reports negative rheumatoid arthritis testing in the past and dealing with fibromyalgia and random joint pain for a little while. She denies dry eyes or difficulty urinating. ROS Const Constitutional: Positive for fatigue and headache(s); No fever(s) or weight change ENT ENT: Positive for headache(s), dry mouth, difficulty swallowing and sore throat Gastro GI: Positive for bloating, constipation (at times) and difficulty swallowing; No abdominal pain, belching, change in bowel habits, change in stool character, coffee ground emesis, cramping, diarrhea, heartburn, feeling full early, excessive flatus, incontinent of stools, Vomiting blood/hematemesis, Blood in stool, loose stools, Black,tarry stools, nausea/dyspepsia, pain with swallowing, vomiting or other Musc Musculoskeletal: Positive for Arthritis; No joint pain Skin Skin: No yellowing of the eye or itchy eyes Neuro Neurology: Positive f (more content not included)... Normal [facility] No Panel Informationon 05-28 Culture Throat Normal throat duarte present Sensitivity Testing: Not Indicated [facility] .Auto Diffon 05-24-2025 Basophil, Absolute 0.1 10 3/mcL Normal 0.0-0.3 [facility] Comment on above: Performed By: #### C BC, ANEU, ADIFF, FES #### [facility] [address] [place], [place] [address] Basophils/100 WBC (Bld) 0.9 % Normal 0.0-2.5 [facility] Comment on above: Performed By: #### C BC, ANEU, ADIFF, FES #### [facility] [address] [place], [place] [address] Eosinophil, Absolute 0.2 10 3/mcL Normal 0.0-0.7 [facility] Comment on above: Performed By: #### C BC, ANEU, ADIFF, FES #### [address] [address] Eosinophils/100 WBC (Bld) 3.0 % Normal 0.0-6.0 [facility] Comment on above: Performed By: #### C BC, ANEU, ADIFF, FES #### [address] [address] Lymphocyte, Absolute 2.2 10 3/mcL Normal 0.9-4.3 [facility] Comment on above: Performed By: #### C BC, ANEU, ADIFF, FES #### [address] [address] Lymphocytes/100 WBC (Bld) 29.2 % Normal 20.0-40.0 [facility] Comment on above: Performed By: #### C BC, ANEU, ADIFF, FES #### [address] [address] Monocyte, Absolute 0.6 10 3/mcL Normal 0.1-1.4 [facility] Comment on above: Performed By: #### C BC, ANEU, ADIFF, FES #### [address] [address] Monocytes/100 WBC (Bld) 8.0 % Normal 2.0-13.0 [facility] Comment on above: Performed By: #### C BC, ANEU, ADIFF, FES #### [address] [address] Neutrophils/100 WBC (Bld) 58.9 % Normal 50.0-75.0 [facility] Comment on above: Performed By: #### C BC, ANEU, ADIFF, FES #### [address] [address] .NEUABSon 05-24-2025 Neutrophil, Absolute 4.4 10 3/mcL Normal 2.3-8.1 [facility] Comment on above: Performed By: #### C BC, ANEU, ADIFF, FES #### [address] [address] CBCon 05-24-2025 Erythrocyte distribution width (RBC) [Ratio] 13.8 % Normal 11.5-15.5 [facility] Comment on above: Performed By: #### C BC, ANEU, ADIFF, FES #### [address] [address] Hematocrit (Bld) [Volume fraction] 42.5 % Normal 34.0-46.0 [facility] Comment on above: Performed By: #### C BC, ANEU, ADIFF, FES #### [place] [address] Hgb 14.3 G/dL Normal 12.0-16.0 [facility] Comment on above: Performed By: #### C BC, ANEU, ADIFF, FES #### [place] [address] MCH (RBC) [Entitic mass] 28.4 pg Normal 27.0-33.0 [facility] Comment on above: Performed By: #### C BC, ANEU, ADIFF, FES #### [place] [address] MCHC 33.7 G/dL Normal 32.0-36.0 [facility] Comment on above: Performed By: #### C BC, ANEU, ADIFF, FES #### [address] [address] MCV (RBC) [Entitic vol] 84.2 fL Normal 80.0-99.0 [facility] Comment on above: Performed By: #### C BC, ANEU, ADIFF, FES #### [address] [address] Platelet 248 10 3/mcL Normal 150-450 [facility] Comment on above: Performed By: #### C BC, ANEU, ADIFF, FES #### [place] [address] Platelet mean volume (Bld) [Entitic vol] 7.6 fL Normal 6.6-10.5 [facility] Comment on above: Performed By: #### C BC, ANEU, ADIFF, FES #### [address] [address] [address] RBC 5.05 10 6/mcL Normal 4.10-5.30 [facility] Comment on above: Performed By: #### C BC, ANEU, ADIFF, FES #### [place] [address] WBC 7.5 10 3/mcL Normal 4.5-10.8 [facility] Comment on above: Performed By: #### C BC, ANEU, ADIFF, FES #### [place] [address] FESon 05-24-2025 Iron [Mass/Vol] 47 ug/dL Low 50-170 [facility] Comment on above: Performed By: #### C BC, ANEU, ADIFF, FES #### [place] [address] Iron Sat 15 % Normal [facility] Comment on above: Performed By: #### C BC, ANEU, ADIFF, FES #### [place] [address] TIBC 315 mcg/dL Normal 250-450 [facility] Comment on above: Performed By: #### C BC, ANEU, ADIFF, FES #### [place] [address] LABORATORYOrdered By: SYSTEM SYSTEM on 05-24-2025 Basophils (Bld) [#/Vol] 0.1 103/mcL Normal 0.0 - 0.3 10^3/mcL AO Workflow SS Basophils/100 WBC (Bld) 0.9 % Normal 0.0 - 2.5 % AO Workflow SS Eosinophil, Absolute 0.2 103/mcL Normal 0.0 - 0 .7 10^3/mcL AO Workflow SS Eosinophils/100 WBC (Bld) 3.0 % Normal 0.0 - 6.0 % AO Workflow SS Erythrocyte distribution width (RBC) [Ratio] 13.8 % Normal 11.5 - 15.5 % AO Workflow SS Hematocrit (Bld) [Volume fraction] 42.5 % Normal 34.0 - 46.0 % AO Workflow SS Hemoglobin (Bld) [Mass/Vol] 14.3 G/dL Normal 12.0 - 16.0 G/dL AO Workflow SS Iron [Mass/Vol] 47 ug/dL Low 50 - 170 mcg/dL AO ADM SS Iron binding capacity [Mass/Vol] 315 mcg/dL Normal 250 - 450 mcg/dL AO ADM SS Iron Sat 15 % Invalid Interpretation Code AO ADM SS Lymphocytes (Bld) [#/Vol] 2.2 103/mcL Normal 0.9 - 4.3 10^3/mcL AO Workflow SS Lymphocytes/100 WBC (Bld) 29.2 % Normal 20.0 - 40.0 % AO Workflow SS MCH (RBC) [Entitic mass] 28.4 pg Normal 27.0 - 33.0 pg AO Workflow SS MCHC 33.7 G/dL Normal 32.0 - 36.0 G/dL AO Workflow SS MCV (RBC) [Entitic vol] 84.2 fL Normal 80.0 - 99.0 fL AO Workflow SS Monocytes (Bld) [#/Vol] 0.6 103/mcL Normal 0.1 - 1.4 10^3/mcL AO Workflow SS Monocytes/100 WBC (Bld) 8.0 % Normal 2.0 - 13.0 % AO Workflow SS Neutrophils (Bld) [#/Vol] 4.4 103/mcL Normal 2.3 - 8.1 10^3/mcL AO Workflow SS Neutrophils/100 WBC (Bld) 58.9 % Normal 50.0 - 75.0 % AO Workflow SS Platelet mean volume (Bld) [Entitic vol] 7.6 fL Normal 6.6 - 10.5 fL AO Workflow SS Platelets (Bld) [#/Vol] 248 103/mcL Normal 150 - 450 10^3/mcL AO Workflow SS RBC (Bld) [#/Vol] 5.05 106/mcL Normal 4.10 - 5.3 0 10^6/mcL AO Workflow SS WBC (Bld) [#/Vol] 7.5 103/mcL Normal 4.5 - 10.8 10^3/mcL AO Workflow [facility] GISELL [facility]EN[facility] W HAYDEN * * *Final Report* * * DATE OF EXAM: Apr 15 2025 1:00PM WRW [id number] - GISELL SCREENING W HAYDEN / PROCEDURE REASON: * * * * Physician Interpretation * * * * RESULT: [facility] [address] [place] [address] #[id number] - GISELL SCREENING W HAYDEN HISTORY: 54 year-old patient presents for screening. Patient is asymptomatic in both breasts. Patient states no personal history of breast cancer. COMPARISON STUDIES: The present examination has been compared to prior imaging studies dated 07/27/2021 (mammogram) and 02/05/2024 (mammogram). MAMMOGRAM TECHNIQUE: The study was acquired using full field digital technology and interpreted from soft copy. Digital Breast Tomosynthesis (DBT) images were obtained and used to assist in the interpretation of this examination. MAMMOGRAM FINDINGS: The breasts are almost entirely fatty. No suspicious masses, calcifications or other abnormalities are seen in either breast. There are no significant interval changes. IMPRESSION: There is no mammographic evidence of malignancy in either breast. Routine screening mammogram is recommended. Annual mammogram will be due in 1 year. BI-RADS Category 1: Negative RISK: Based on the Tyrer-Cuzick (TC) risk assessment model, this patient has a 2.5% lifetime risk of developing breast cancer, meaning they are at average risk for developing breast cancer. However, this is only an estimate based on available history provided on the patient's questionnaire. We encourage all patients to talk with their providers about these results, further recommendations for managing breast health, and appropriate supplemental screening options if the patient has dense breast tissue. Interpreting Radiologist: Perez Zee M.D. Electronically signed on: 04/18/2025 Environmental Air Specialist: CHRISTOFER Transcribe Date/Time: Apr 15 2025 12:50P Dictated by: PEREZ ZEE MD This examination was interpreted and the report reviewed and electronically signed by: PEREZ ZEE MD on Apr 18 2025 11:33AM EST [id number] N Normal [facility] .Auto Diffon 03-25-2025 Basophil, Absolute 0.1 10 3/mcL Normal 0.0-0.[address] [facility] Comment on above: Performed By: #### C BC, ANEU, ADIFF, FES #### [facility] [place] [address] [place], [place] [address] Basophils/100 WBC (Bld) 0.8 % Normal 0.0-2.5 [facility] Comment on above: Performed By: #### C BC, ANEU, ADIFF, FES #### [address] [address] Eosinophil, Absolute 0.3 10 3/mcL Normal 0.0-0.7 [facility] Comment on above: Performed By: #### C BC, ANEU, ADIFF, FES #### [address] [address] Eosinophils/100 WBC (Bld) 3.4 % Normal 0.0-6.0 [facility] Comment on above: Performed By: #### C BC, ANEU, ADIFF, FES #### [address] [address] Lymphocyte, Absolute 2.6 10 3/mcL Normal 0.9-4.3 [facility] Comment on above: Performed By: #### C BC, ANEU, ADIFF, FES #### [address] [address] Lymphocytes/100 WBC (Bld) 35.1 % Normal 20.0-40.0 [facility] Comment on above: Performed By: #### C BC, ANEU, ADIFF, FES #### [address] [address] Monocyte, Absolute 0.8 10 3/mcL Normal 0.1-1.4 [facility] Comment on above: Performed By: #### C BC, ANEU, ADIFF, FES #### [address] [address] Monocytes/100 WBC (Bld) 10.4 % Normal 2.0-13.0 [facility] Comment on above: Performed By: #### C BC, ANEU, ADIFF, FES #### [address] [address] Neutrophils/100 WBC (Bld) 50.3 % Normal 50.0-75.0 [facility] Comment on above: Performed By: #### C ALENA, SALLY GRACE, FES #### [address] [address] .GFRon 03-25-2025 Estimated Glomerular Filtration Rate 102 ml/min/1.73sqm Normal [facility] Comment on above: Result Comment: Stages of Chronic Kidney Disease (CKD) Stage Description eGFR(ml/min/1.73 sq.m.) CKD 1 Normal kidney function or >=90 normal kindney function with possible kidney damage (ex. Proteinuria) CKD 2 Kidney damage with mild loss 60-89 of kidney function CKD 3a Mild to moderate loss of kidney 45-59 function CKD 3b Moderate to severe loss of 30-44 of kindey function CKD 4 Severe loss of kidney function 15-29 CKD 5 Kidney failure <15 Note: (go live 2024) the eGFR calculation was updated to the 2020 CKD-EPI creatinine equation without a race factor to calculate the eGFR results. Performed By: #### C ALENA, SALLY GRACE, FES #### [address] [address] .NEUABSon 03-25-2025 Neutrophil, Absolute 3.7 10 3/mcL Normal 2.3-8.1 [facility] Comment on above: Performed By: #### C ALENA, SALLY GRACE, FES #### [address] [address] A1Con 03-25-2025 Glucose [Mass/Vol] 120 mg/dL Normal [facility] Comment on above: Result Comment: Yamileth mated Average Glucose calculated by equation ((28.7xA1C)-46.7) Estimated average glucose (eAG) is a calculated value from Hemoglobin A1C and is parts sales representative of the average blood glucose level in the last 2-3 month period. Normal range: less than 114 mg/dL Performed By: #### C BC, SANJAY, ADGRACE, FES #### [address] [address] HbA1c (Bld) [Mass fraction] 5.8 % Normal 4.3-6.4 [facility] Comment on above: Performed By: #### C BC, ANEU, ADIFF, FES #### [place] [address] CBCon 03-25-2025 Erythrocyte distribution width (RBC) [Ratio] 13.4 % Normal 11.5-15.5 [facility] Comment on above: Performed By: #### C BC, ANEU, ADIFF, FES #### [place] [address] Hematocrit (Bld) [Volume fraction] 44.7 % Normal 34.0-46.0 [facility] Comment on above: Performed By: #### C BC, ANEU, ADIFF, FES #### [place] [address] Hgb 15.2 G/dL Normal 12.0-16.0 [facility] Comment on above: Performed By: #### C BC, ANEU, ADIFF, FES #### [place] [address] MCH (RBC) [Entitic mass] 28.8 pg Normal 27.0-33.0 [facility] Comment on above: Performed By: #### C BC, ANEU, ADIFF, FES #### [place] [address] MCHC 34.0 G/dL Normal 32.0-36.0 [facility] Comment on above: Performed By: #### C BC, ANEU, ADIFF, FES #### [place] [address] MCV (RBC) [Entitic vol] 84.7 fL Normal 80.0-99.0 [facility] Comment on above: Performed By: #### C BC, ANEU, ADIFF, FES #### [place] [address] Platelet 247 10 3/mcL Normal 150-450 [facility] Comment on above: Performed By: #### C BC, ANEU, ADIFF, FES #### [facility] [place] [address] [place], [place] [address] Platelet mean volume (Bld) [Entitic vol] 7.8 fL Normal 6.6-10.5 [facility] Comment on above: Performed By: #### C BC, ANEU, ADIFF, FES #### [address] [address] RBC 5.28 10 6/mcL Normal 4.10-5.30 [facility] Comment on above: Performed By: #### C ALENA, ANEU, ADIFF, FES #### [address] [address] WBC 7.4 10 3/mcL Normal 4.5-10.8 [facility] Comment on above: Performed By: #### C ALENA, SANJAY ADIFF, FES #### [address] [address] CMPon 03-25-2025 Albumin Level 4.1 G/dL Normal 3.5-5.0 [facility] Comment on above: Performed By: #### C ALENA, SANJAY, ADIFF, FES #### [address] [address] Albumin/Globulin [Mass ratio] 1.1 {ratio} Normal 1.1-2.5 [facility] Comment on above: Performed By: #### C BC, ANEU, ADIFF, FES #### [address] [address] ALP [Catalytic activity/Vol] 85 U/L Normal 40-135 [facility] Comment on above: Performed By: #### C BC, ANEU, ADIFF, FES #### [address] [address] ALT [Catalytic activity/Vol] 26 U/L Normal 14-59 [facility] Comment on above: Performed By: #### C BC, ANEU, ADIFF, FES #### [address] [address] AST [Catalytic activity/Vol] 17 U/L Normal 10-40 [facility] Comment on above: Performed By: #### C BC, ANEU, ADIFF, FES #### [place] [address] Bili Total 0.4 mg/dL Normal 0.2-1.0 [facility] Comment on above: Result Comment: Use of this assay is not recommended for patients undergoing treatment with eltrombopag due to the potential for falsely elevated results. Performed By: #### C BC, ANEU, ADIFF, FES #### [place] [address] BUN/Creatinine Ratio 20 ratio Normal 7-27 [facility] Comment on above: Performed By: #### C BC, ANEU, ADIFF, FES #### [place] [address] Calcium [Mass/Vol] 9.5 mg/dL Normal 8.4-10.2 [facility] Comment on above: Performed By: #### C BC, ANEU, ADIFF, FES #### [place] [address] Chloride [Moles/Vol] 103 mmol/L Normal 98-107 [facility] Comment on above: Performed By: #### C BC, ANEU, ADIFF, FES #### [place] [address] CO2 [Moles/Vol] 30 mmol/L High 22-29 [facility] Comment on above: Performed By: #### C BC, ANEU, ADIFF, FES #### [place] [address] Creatinine [Mass/Vol] 0.70 mg/dL Normal 0.51-0.95 [facility] Comment on above: Performed By: #### C BC, ANEU, ADIFF, FES #### [place] [address] Electrolyte Balance 8.0 mEq/L Normal 4.0-15.0 [facility] Comment on above: Performed By: #### C BC, ANEU, ADIFF, FES #### [place] [address] Globulin 3.6 G/dL Normal 2.7-4.4 [facility] Comment on above: Performed By: #### C BC, ANEU, ADIFF, FES #### [address] [address] Glucose [Mass/Vol] 105 mg/dL Normal 70-105 [facility] Comment on above: Performed By: #### C BC, ANEU, ADIFF, FES #### [address] [address] Potassium [Moles/Vol] 4.0 mmol/L Normal 3.5-5.1 [facility] Comment on above: Performed By: #### C BC, SANJAY, ADIFF, FES #### [address] [address] Sodium [Moles/Vol] 141 mmol/L Normal 136-145 [facility] Comment on above: Performed By: #### C BC, SANJAY, ADIFF, FES #### [address] [address] Total Protein 7.7 G/dL Normal 6.4-8.2 [facility] Comment on above: Performed By: #### C ALENA, ANEU, ADIFF, FES #### [address] [address] Urea nitrogen [Mass/Vol] 14 mg/dL Normal 7-18 [facility] Comment on above: Performed By: #### C BC, ANEU, ADIFF, FES #### [address] [address] FEon 03-25-2025 Iron [Mass/Vol] 53 ug/dL Normal 50-170 [facility] Comment on above: Performed By: #### C BC, ANEU, ADIFF, FES #### [address] [address] Murali 03-25-2025 Ferritin [Mass/Vol] 112.0 ng/mL Normal 8.0-252.0 [facility] Comment on above: Performed By: #### C BC, ANEU, ADIFF, FES #### [facility] [place] [address] [place], [place] [address] FT4on 03-25-2025 Free T4 [Mass/Vol] 1.09 ng/dL Normal 0.76-1.46 [facility] Comment on above: Performed By: #### C SANJAY CARVAJAL ADIFF, ROBIN #### [facility] [place] [address] [place], [place] [address] LABORATORYOrdered By: SYSTEM SYSTEM on 03-25-2025 Albumin BCP dye [Mass/Vol] 4.1 G/dL Normal 3.5 - 5.0 G/dL AO ADM SS Albumin/Globulin [Mass ratio] 1.1 {ratio} Normal 1.1 - 2.5 ratio AO ADM SS ALP [Catalytic activity/Vol] 85 U/L Normal 40 - 135 U/L AO ADM SS ALT With P-5'-P [Catalytic activity/Vol] 26 U/L Normal 14 - 59 U/L AO ADM SS AST With P-5'-P [Catalytic activity/Vol] 17 U/L Normal 10 - 40 U/L AO ADM SS Basophils (Bld) [#/Vol] 0.1 103/mcL Normal 0.0 - 0.3 10^3/mcL AO Workflow SS Basophils/100 WBC (Bld) 0.8 % Normal 0.0 - 2.5 % AO Workflow SS Bilirubin [Mass/Vol] 0.4 mg/dL Normal 0.2 - 1 .0 mg/dL AO ADM SS Comment on above: Interpretive Data: U se of this assay is not recommended for patients undergoing treatment with eltrombopag due to the potential for falsely elevated results. Calcium [Mass/Vol] 9.5 mg/dL Normal 8.4 - 10. 2 mg/dL AO ADM SS Chloride [Moles/Vol] 103 mmol/L Normal 98 - 10 7 mmol/L AO ADM SS CO2 [Moles/Vol] 30 mmol/L High 22 - 29 mmol/L AO ADM SS Creatinine [Mass/Vol] 0.70 mg/dL Normal 0.51 - 0.95 mg/dL AO ADM SS Electrolyte Balance 8.0 mEq/L Normal 4.0 - 15 .0 mEq/L AO ADM SS Eosinophil, Absolute 0.3 103/mcL Normal 0.0 - 0 .7 10^3/mcL AO Workflow SS Eosinophils/100 WBC (Bld) 3.4 % Normal 0.0 - 6.0 % AO Workflow SS Erythrocyte distribution width (RBC) [Ratio] 13.4 % Normal 11.5 - 15.5 % AO Workflow SS Estimated Glomerular Filtration Rate 102 ml/min/1.73sqm Invalid Interpretation Code AO Chemistry S Comment on above: Interpretive Data: Stages of Chronic Kidney Disease (CKD) Stage Description eGFR(ml/min/1.73 sq.m.) CKD 1 Normal kidney function or >=90 normal kindney function with possible kidney damage (ex. Proteinuria) CKD 2 Kidney damage with mild loss 60-89 of kidney function CKD 3a Mild to moderate loss of kidney 45-59 function CKD 3b Moderate to severe loss of 30-44 of kindey function CKD 4 Severe loss of kidney function 15-29 CKD 5 Kidney failure <15 Note: (go live 2024) the eGFR calculation was updated to the 2020 CKD-EPI creatinine equation without a race factor to calculate the eGFR results. Ferritin [Mass/Vol] 112.0 ng/mL Normal 8.0 - 25 2.0 ng/mL AO ADM SS Free T4 [Mass/Vol] 1.09 ng/dL Normal 0.76 - 1. 46 ng/dL AO ADM SS Globulin 3.6 G/dL Normal 2.7 - 4.4 G/dL AO ADM SS Glucose [Mass/Vol] 120 mg/dL Invalid Interpretation Code AO Chemistry S Comment on above: Interpretive Data: E stimated average glucose (eAG) is a calculated value from Hemoglobin A1C and is parts sales representative of the average blood glucose level in the last 2-3 month period. Normal range: less than 114 mg/dL Glucose [Mass/Vol] 105 mg/dL Normal 70 - 105 mg/dL AO ADM SS HbA1c (Bld) [Mass fraction] 5.8 % Normal 4.3 - 6.4 % AO ADM SS Hematocrit (Bld) [Volume fraction] 44.7 % Normal 34.0 - 46.0 % AO Workflow SS Hemoglobin (Bld) [Mass/Vol] 15.2 G/dL Normal 12.0 - 16.0 G/dL AO Workflow SS Iron [Mass/Vol] 53 ug/dL Normal 50 - 170 mcg/dL AO ADM SS Lymphocytes (Bld) [#/Vol] 2.6 103/mcL Normal 0.9 - 4.3 10^3/mcL AO Workflow SS Lymphocytes/100 WBC (Bld) 35.1 % Normal 20.0 - 40.0 % AO Workflow SS MCH (RBC) [Entitic mass] 28.8 pg Normal 27.0 - 33.0 pg AO Workflow SS MCHC 34.0 G/dL Normal 32.0 - 36.0 G/dL AO Workflow SS MCV (RBC) [Entitic vol] 84.7 fL Normal 80.0 - 99.0 fL AO Workflow SS Monocytes (Bld) [#/Vol] 0.8 103/mcL Normal 0.1 - 1.4 10^3/mcL AO Workflow SS Monocytes/100 WBC (Bld) 10.4 % Normal 2.0 - 13.0 % AO Workflow SS Neutrophils (Bld) [#/Vol] 3.7 103/mcL Normal 2.3 - 8.1 10^3/mcL AO Workflow SS Neutrophils/100 WBC (Bld) 50.3 % Normal 50.0 - 75.0 % AO Workflow SS Platelet mean volume (Bld) [Entitic vol] 7.8 fL Normal 6.6 - 10.5 fL AO Workflow SS Platelets (Bld) [#/Vol] 247 103/mcL Normal 150 - 450 10^3/mcL AO Workflow SS Potassium [Moles/Vol] 4.0 mmol/L Normal 3.5 - 5.1 mmol/L AO ADM SS Protein [Mass/Vol] 7.7 G/dL Normal 6.4 - 8.2 G/dL AO ADM SS RBC (Bld) [#/Vol] 5.28 106/mcL Normal 4.10 - 5.3 0 10^6/mcL AO Workflow SS Sodium [Moles/Vol] 141 mmol/L Normal 136 - 145 mmol/L AO ADM SS TSH Qn 2.63 m[IU]/L Normal 0.36 - 3.74 mcIU/mL AO ADM SS Urea nitrogen [Mass/Vol] 14 mg/dL Normal 7 - 18 mg/dL AO ADM SS Urea nitrogen/Creatinine [Mass ratio] 20 ratio Normal 7 - 27 ratio AO ADM SS WBC (Bld) [#/Vol] 7.4 103/mcL Normal 4.5 - 10.8 10^3/mcL AO Workflow SS TSHon 03-25-2025 TSH Qn 2.63 m[IU]/L Normal 0.36-3.74 [facility] Comment on above: Performed By: #### C SANJAY CARVAJAL ADIFF, FES #### [facility] [address] [place], [place] [address] CNOVon 03-19-2025 CNOV Office Visit (OBGYWM ) INGENIMESH KINGSTON ([id number]) 1970 F Date Time Provider Department 03/19/25 9:40 AM ELHAM AGUIRRE OBGYWM During your visit today, we recorded the following information about you: Weight Height 67.6 kg 1.613 m Elham Aguirre MD 03/19/2025 11:29 AM Signed Nimesh Rusherger is a 54 year old female who presents for problem visit for c/o premature menopause. HPI: 54-year-old female who is completed childbearing who presents today for follow-up early menopause. 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 However, he is retiring and she is looking for a new radar engineer. Patient states she stopped having periods at approximately age 29 and has been on estrogen therapy since. She is currently on Duavee and does fairly well on it. She denies any vaginal bleeding. She denies any history of VTE, stroke or heart attack. She states she still has some hot flashes at times. She also has some mixed urinary incontinence with urge incontinence being bothersome. It has been significantly improved with Gemtesa but she has trouble affording this as well as the Duavee. Patient reports her Pap smears have always been normal. 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 Fibromyalgia 11/06/1999 was on savella and lyrica Hypothyroidism Impaired glucose tolerance 04/06/2010 2 hr 152 menopause transition Migraine depakote Mixed incontinence MVP (mitral valve prolapse) Other and unspecified hyperlipidemia on simvastatin Psoriatic arthritis (HCC) Snoring no OSAS 05/19/2010 outside sleep test PAST SURGICAL HISTORY Procedure Laterality Date DELIVERY ONLY 1991,1992,1997 , low transverse PAST SURGICAL HISTORY OF 06/[address] Cali at [facility]; 2011 repeat neck surgery FAMILY HISTORY Problem Relation Age of Onset Hypertension Father CABG neprolithiasis other (hysterectomy [Other]) Mother thyroid Hypertension Sister other (healthy [Other]) Sister other (healthy [Other]) Brother other (healthy [Other]) Brother other (healthy [Other]) Brother other (healthy [Other]) Daughter other (healthy [Other]) Daughter other (healthy [Other]) Son other (healthy [Other]) Son Social History Tobacco Use Smoking status: Never Substance Use Topics Alcohol use: No Drug use: No Current Outpatient Medications Medication Sig cinnamon bark (CINNAMON ORAL) Take by mouth. metformin HCl (METFORMIN ORAL) Take by mouth. ATENOLOL ORAL Take by mouth. thymol/chlorophyllin (CHLOROPHYLL ORAL) Take 50 mg by mouth once daily. divalproex DR (DEPAKOTE) 500 mg EC tablet Take 500 mg by mouth once daily. furosemide (LASIX) 20 mg tablet Take 20 mg by mouth once daily. magnesium oxide,aspartate,citr (TRIPLE MAGNESIUM COMPLEX) 400 mg magnesium cap Take by mouth as directed. montelukast (SINGULAIR) 10 mg tablet Take 10 mg by mouth once daily. omeprazole (PRILOSEC) 20 mg capsule Take 20 mg by mouth once daily. levothyroxine (SYNTHROID) 50 mcg tablet Take 50 mcg by mouth once daily. valACYclovir (VALTREX) 1 gram Take 2,000 mg by mouth q 12 HR. simvastatin (ZOCOR) 40 mg ORAL tablet Take 1 tablet by mouth daily at bedtime. GENERIC OK CRANBERRY 500 MG CAP Take 1500 mg daily VERAPAMIL 120 MG TAB Take one(1) tablet two(2) times daily. levocetirizine dihydrochloride(XYZAL 5 MG TAB) Take one(1) tablet daily. solifenacin 10 mg tablet Take 1 tablet by mouth once daily. estradiol (VIVELLE-DOT) 0.05 mg/24 hr patch Apply 1 patch as directed two times a week. TWICE WEEKLY progesterone micronized (PROMETRIUM) 200 mg capsule Take 1 capsule by mouth daily at bedtime. ibuprofen (ADVIL) 200 mg tablet Take 200 mg by mouth every 6 hours as needed. PINDOLOL 5 MG TAB take one in am and two in pm No current facility-administered medications for this visit. Allergies As of Date: 03/19/2025 Allergen Noted Reaction CANTALOUPE 04/15/2010 Itching CHOCOLATE 04/15/2010 Itching CLAMS 04/15/2010 Itching EGGS [EGG] 04/15/2010 Itching ERYTHROMYCIN (BULK) 04/02/2010 GI Upset FISH 04/15/2010 Itching MILK CONTAINING PRODUCTS (DAIRY) 03/19/2025 Itching MONOSODIUM GLUTAMATE (MSG) 03/19/2025 Itching PEANUTS 04/15/2010 Itching SEPTRA [SULFAMETHOXAZOLE- (more content not included)... Normal [facility] 01-20-2025 U Ratio Alb/Cre 4 mg/G Normal 0-30 [facility] Comment on above: Result Comment: The units for the MALB test were changed, but the MALB ratio calculation was not initially adjusted to reflex this. The corrected ratio has now been recalculated using the appropriate conversion factor. BP Performed By: #### C BC, ANEU, ADIFF, FES #### [place] [address] LABORATORYOrdered By: Emery Hdz on 01-01-2025 Albumin DL <= 20 mg/L (U) [Mass/Vol] 12.1 mg/L Invalid Interpretation Code AO ADM SS Albumin/Creatinine DL <= 20 mg/L (U) [Mass ratio] 0 mcg/mg Normal 0 - 30 mcg/mg AO Chemistry S Creatinine (U) [Mass/Vol] 282.5 mg/dL Invalid Interpretation Code AO ADM SS Catien 01-01-2025 U Creatinine 282.5 mg/dL Normal [facility] Comment on above: Performed By: #### C SANJAY CARVAJAL ADIFF, ROBIN #### [place] [address] [place], [place] [address] U Microalb 12.1 mg/L Normal [facility] Comment on above: Performed By: #### C ALENA, SALLY GRACE, FES #### [place] [address] [place], [place] [address] .GFRon 12-28-2024 Estimated Glomerular Filtration Rate 88 ml/min/1.73sqm Normal [facility] Comment on above: Result Comment: Stages of Chronic Kidney Disease (CKD) Stage Description eGFR(ml/min/1.73 sq.m.) CKD 1 Normal kidney function or >=90 normal kindney function with possible kidney damage (ex. Proteinuria) CKD 2 Kidney damage with mild loss 60-89 of kidney function CKD 3a Mild to moderate loss of kidney 45-59 function CKD 3b Moderate to severe loss of 30-44 of kindey function CKD 4 Severe loss of kidney function 15-29 CKD 5 Kidney failure <15 Note: (go live 2024) the eGFR calculation was updated to the 2020 CKD-EPI creatinine equation without a race factor to calculate the eGFR results. Performed By: #### C SANJAY CARVAJAL ADIFF, FES #### [place] [address] [place], [place] [address] A1Con 12-28-2024 Glucose [Mass/Vol] 126 mg/dL Normal [facility] Comment on above: Result Comment: Yamileth mated average glucose (eAG) is a calculated value from Hemoglobin A1C and is parts sales representative of the average blood glucose level in the last 2-3 month period. Normal range: less than 114 mg/dL Estimated Average Glucose calculated by equation ((28.7xA1C)-46.7) Performed By: #### C SANJAY CARVAJAL ADIFF, FES #### [address] [place], [place] [address] HbA1c (Bld) [Mass fraction] 6.0 % Normal 4.3-6.4 [facility] Comment on above: Performed By: #### C BC, ANEU, ADIFF, FES #### [address] [place] [address] CMPon 12-28-2024 Albumin Level 3.5 G/dL Normal 3.5-5.0 [facility] Comment on above: Performed By: #### C BC, ANEU, ADIFF, FES #### [address] [address] Albumin/Globulin [Mass ratio] 1.2 {ratio} Normal 1.1-2.5 [facility] Comment on above: Performed By: #### C BC, ANEU, ADIFF, FES #### [address] [address] ALP [Catalytic activity/Vol] 77 U/L Normal 40-135 [facility] Comment on above: Performed By: #### C BC, ANEU, ADIFF, FES #### [address] [address] ALT [Catalytic activity/Vol] 15 U/L Normal 14-59 [facility] Comment on above: Performed By: #### C BC, ANEU, ADIFF, FES #### [address] [address] AST [Catalytic activity/Vol] 12 U/L Normal 10-40 [facility] Comment on above: Performed By: #### C BC, ANEU, ADIFF, FES #### [address] [address] Bili Total 0.4 mg/dL Normal 0.2-1.0 [facility] Comment on above: Result Comment: Use of this assay is not recommended for patients undergoing treatment with eltrombopag due to the potential for falsely elevated results. Performed By: #### C BC, ANEU, ADIFF, FES #### [address] [address] BUN/Creatinine Ratio 13 ratio Normal 7-27 [facility] Comment on above: Performed By: #### C BC, ANEU, ADIFF, FES #### [address] [address] Calcium [Mass/Vol] 9.2 mg/dL Normal 8.4-10.2 [facility] Comment on above: Performed By: #### C BC, ANEU, ADIFF, FES #### [address] [address] Chloride [Moles/Vol] 104 mmol/L Normal 98-107 [facility] Comment on above: Performed By: #### C BC, ANEU, ADIFF, FES #### [address] [place] [address] CO2 [Moles/Vol] 31 mmol/L High 22-29 [facility] Comment on above: Performed By: #### C BC, ANEU, ADIFF, FES #### [address] [address] Creatinine [Mass/Vol] 0.79 mg/dL Normal 0.55-1.02 [facility] Comment on above: Result Comment: Test ing performed on Siemens Dimension EXL analyzer using a modified kinetic Nelli technique. Performed By: #### C BC, ANEU, ADIFF, FES #### [address] [address] Electrolyte Balance 6.0 mEq/L Normal 4.0-15.0 [facility] Comment on above: Performed By: #### C BC, ANEU, ADIFF, FES #### [address] [address] Globulin 3.0 G/dL Normal 1.5-3.8 [facility] Comment on above: Performed By: #### C BC, ANEU, ADIFF, FES #### [address] [address] Glucose [Mass/Vol] 99 mg/dL Normal 70-105 [facility] Comment on above: Performed By: #### C BC, ANEU, ADIFF, FES #### [address] [place] [address] Potassium [Moles/Vol] 4.2 mmol/L Normal 3.5-5.1 [facility] Comment on above: Performed By: #### C BC, ANEU, ADIFF, FES #### [address] [place], [place] [address] Sodium [Moles/Vol] 141 mmol/L Normal 136-145 [facility] Comment on above: Performed By: #### C BC, ANEU, ADIFF, FES #### [address] [place], [place] [address] Total Protein 6.5 G/dL Normal 6.4-8.2 [facility] Comment on above: Performed By: #### C BC, ANEU, ADIFF, FES #### [address] [place], [place] [address] Urea nitrogen [Mass/Vol] 10 mg/dL Normal 7-18 [facility] Comment on above: Performed By: #### C BC, ANEU, ADIFF, FES #### [address] [address] LABORATORYOrdered By: SYSTEM SYSTEM on 12-28-2024 Albumin BCP dye [Mass/Vol] 3.5 G/dL Normal 3.5 - 5.0 G/dL AO ADM SS Albumin/Globulin [Mass ratio] 1.2 {ratio} Normal 1.1 - 2.5 ratio AO ADM SS ALP [Catalytic activity/Vol] 77 U/L Normal 40 - 135 U/L AO ADM SS ALT With P-5'-P [Catalytic activity/Vol] 15 U/L Normal 14 - 59 U/L AO ADM SS AST With P-5'-P [Catalytic activity/Vol] 12 U/L Normal 10 - 40 U/L AO ADM SS Bilirubin [Mass/Vol] 0.4 mg/dL Normal 0.2 - 1 .0 mg/dL AO ADM SS Comment on above: Interpretive Data: U se of this assay is not recommended for patients undergoing treatment with eltrombopag due to the potential for falsely elevated results. Calcium [Mass/Vol] 9.2 mg/dL Normal 8.4 - 10. 2 mg/dL AO ADM SS Chloride [Moles/Vol] 104 mmol/L Normal 98 - 10 7 mmol/L AO ADM SS CO2 [Moles/Vol] 31 mmol/L High 22 - 29 mmol/L AO ADM SS Creatinine [Mass/Vol] 0.79 mg/dL Normal 0.55 - 1.02 mg/dL AO ADM SS Comment on above: Interpretive Data: T esting performed on Siemens Dimension EXL analyzer using a modified kinetic Nelli technique. Electrolyte Balance 6.0 mEq/L Normal 4.0 - 15 .0 mEq/L AO ADM SS Estimated Glomerular Filtration Rate 88 ml/min/1.73sqm Invalid Interpretation Code AO Chemistry S Comment on above: Interpretive Data: Stages of Chronic Kidney Disease (CKD) Stage Description eGFR(ml/min/1.73 sq.m.) CKD 1 Normal kidney function or >=90 normal kindney function with possible kidney damage (ex. Proteinuria) CKD 2 Kidney damage with mild loss 60-89 of kidney function CKD 3a Mild to moderate loss of kidney 45-59 function CKD 3b Moderate to severe loss of 30-44 of kindey function CKD 4 Severe loss of kidney function 15-29 CKD 5 Kidney failure <15 Note: (go live 2024) the eGFR calculation was updated to the 2020 CKD-EPI creatinine equation without a race factor to calculate the eGFR results. Globulin 3.0 G/dL Normal 1.5 - 3.8 G/dL AO ADM SS Glucose [Mass/Vol] 99 mg/dL Normal 70 - 105 mg/dL AO ADM SS Glucose [Mass/Vol] 126 mg/dL Invalid Interpretation Code AO Chemistry S Comment on above: Interpretive Data: E stimated average glucose (eAG) is a calculated value from Hemoglobin A1C and is parts sales representative of the average blood glucose level in the last 2-3 month period. Normal range: less than 114 mg/dL HbA1c (Bld) [Mass fraction] 6.0 % Normal 4.3 - 6.4 % AO ADM SS Potassium [Moles/Vol] 4.2 mmol/L Normal 3.5 - 5.1 mmol/L AO ADM SS Protein [Mass/Vol] 6.5 G/dL Normal 6.4 - 8.2 G/dL AO ADM SS Sodium [Moles/Vol] 141 mmol/L Normal 136 - 145 mmol/L AO ADM SS Urea nitrogen [Mass/Vol] 10 mg/dL Normal 7 - 18 mg/dL AO ADM SS Urea nitrogen/Creatinine [Mass ratio] 13 ratio Normal 7 - 27 ratio AO ADM SS .Auto Diffon 06-10-2024 Basophil, Absolute 0.1 10 3/mcL Normal 0.0-0.2 [facility] ([place]) Comment on above: Performed By: #### A DIFF, CBC, PRO, APTT, A1C, ANEU #### [address] [address] Basophils/100 WBC (Bld) 0.9 % Normal 0.0-2.5 [facility] ([place]) Comment on above: Performed By: #### A DIFF, CBC, PRO, APTT, A1C, ANEU #### [address] [address] Eosinophil, Absolute 0.2 10 3/mcL Normal 0.0-0.4 [facility] ([place]) Comment on above: Performed By: #### A DIFF, CBC, PRO, APTT, A1C, ANEU #### [address] [address] Eosinophils/100 WBC (Bld) 2.8 % Normal 0.0-7.0 [facility] ([place]) Comment on above: Performed By: #### A DIFF, CBC, PRO, APTT, A1C, ANEU #### [address] [address] Lymphocyte, Absolute 2.7 10 3/mcL Normal 0.8-3.9 [facility] ([place]) Comment on above: Performed By: #### A DIFF, CBC, PRO, APTT, A1C, ANEU #### [address] [address] Lymphocytes/100 WBC (Bld) 43.3 % Normal 10.0-50.0 [facility] ([place]) Comment on above: Performed By: #### A DIFF, CBC, PRO, APTT, A1C, ANEU #### [address] [address] Monocyte, Absolute 0.6 10 3/mcL Normal 0.2-1.0 [facility] ([place]) Comment on above: Performed By: #### A DIFF, CBC, PRO, APTT, A1C, ANEU #### [address] [address] Monocytes/100 WBC (Bld) 9.8 % Normal 1.7-13.0 [facility] ([place]) Comment on above: Performed By: #### A DIFF, CBC, PRO, APTT, A1C, ANEU #### [address] [address] Neutrophils/100 WBC (Bld) 43.2 % Normal 37.0-80.0 [facility] ([place]) Comment on above: Performed By: #### A DIFF, CBC, PRO, APTT, A1C, ANEU #### [address] [address] .GFRon 06-10-2024 GFR 86 ml/min/1.73sqm Normal [facility] ([place]) Comment on above: Result Comment: GFR Population mean for , Non- Americans Ages 20-29 = 116 mL/min/1.73 sq.m. Ages 30-39 = 107 mL/min/1.73 sq.m. Ages 40-49 = 99 mL/min/1.73 sq.m. Ages 50-59 = 93 mL/min/1.73 sq.m. Ages 60-69 = 85 mL/min/1.73 sq.m. Ages 70+ = 75 mL/min/1.73 sq.m. Chronic Kidney Disease: Less than 60 mL/min/1.73 square meters End Stage Renal Disease: Less than 15 mL/min/1.73 square meters Performed By: #### L IPID, GFR, CMP #### [address] [address] GFR Non- 71 ml/min/1.73sqm Normal [facility] ([place]) Comment on above: Result Comment: GFR Population mean for , Non- Americans Ages 20-29 = 116 mL/min/1.73 sq.m. Ages 30-39 = 107 mL/min/1.73 sq.m. Ages 40-49 = 99 mL/min/1.73 sq.m. Ages 50-59 = 93 mL/min/1.73 sq.m. Ages 60-69 = 85 mL/min/1.73 sq.m. Ages 70+ = 75 mL/min/1.73 sq.m. Chronic Kidney Disease: Less than 60 mL/min/1.73 square meters End Stage Renal Disease: Less than 15 mL/min/1.73 square meters Performed By: #### L IPID, GFR, CMP #### [address] [address] .NEUABSon 06-10-2024 Neutrophil, Absolute 2.7 10 3/mcL Low 2.9-6.2 [facility] ([place]) Comment on above: Performed By: #### A DIFF, CBC, PRO, APTT, A1C, ANEU #### [address] [address] A1Con 06-10-2024 Glucose [Mass/Vol] 131 mg/dL Normal [facility] ([place]) Comment on above: Result Comment: Yamileth mated Average Glucose calculated by equation ((28.7xA1C)-46.7) Estimated average glucose (eAG) is a calculated value from Hemoglobin A1C and is parts sales representative of the average blood glucose level in the last 2-3 month period. Normal range: less than 114 mg/dL Performed By: #### A DIFF, CBC, PRO, APTT, A1C, ANEU ####[address] [address] HbA1c (Bld) [Mass fraction] 6.2 % Normal 4.3-6.4 [facility] ([place]) Comment on above: Performed By: #### A DIFF, CBC, PRO, APTT, A1C, ANEU ####[address] [address] APTTon 06-10-2024 aPTT Coag (Bld) [Time] 32.6 s Normal 25.0-35.0 [facility] ([place]) Comment on above: Result Comment: For Heparin anticoagulation therapy, the recommended therapeutic range is: 45.4-75.9 seconds. Patients on heparin therapy may have an extreme result. Performed By: #### A DIFF, CBC, PRO, APTT, A1C, ANEU ####[address] [place], [place] [address] CBCon 06-10-2024 Erythrocyte distribution width (RBC) [Ratio] 13.6 % Normal 11.5-14.5 [facility] ([place]) Comment on above: Performed By: #### A DIFF, CBC, PRO, APTT, A1C, ANEU #### [address] [address] Hematocrit (Bld) [Volume fraction] 41.5 % Normal 37.0-47.0 [facility] ([place]) Comment on above: Performed By: #### A DIFF, CBC, PRO, APTT, A1C, ANEU #### [id number] Hgb 14.1 G/dL Normal 12.0-16.0 [facility] ([place]) Comment on above: Performed By: #### A DIFF, CBC, PRO, APTT, A1C, ANEU #### [address] [address] MCH (RBC) [Entitic mass] 29.4 pg Normal 27.0-31.2 [facility] ([place]) Comment on above: Performed By: #### A DIFF, CBC, PRO, APTT, A1C, ANEU #### [address] [address] MCHC 33.9 G/dL Normal 33.0-37.0 [facility] ([place]) Comment on above: Performed By: #### A DIFF, CBC, PRO, APTT, A1C, ANEU #### [address] [address] MCV (RBC) [Entitic vol] 86.6 fL Normal 80.0-94.0 [facility] ([place]) Comment on above: Performed By: #### A DIFF, CBC, PRO, APTT, A1C, ANEU #### [address] [address] Platelet 229 10 3/mcL Normal 130-400 [facility] ([place]) Comment on above: Performed By: #### A DIFF, CBC, PRO, APTT, A1C, ANEU #### [address] [place] [address] Platelet mean volume (Bld) [Entitic vol] 8.3 fL Normal 7.4-10.4 [facility] ([place]) Comment on above: Performed By: #### A DIFF, CBC, PRO, APTT, A1C, ANEU #### [address] [address] RBC 4.79 10 6/mcL Normal 4.20-5.40 [facility] ([place]) Comment on above: Performed By: #### A DIFF, CBC, PRO, APTT, A1C, ANEU #### [address] [address] WBC 6.1 10 3/mcL Normal 4.6-10.8 [facility] ([place]) Comment on above: Performed By: #### A DIFF, CBC, PRO, APTT, A1C, ANEU #### [address] [address] CMPon 06-10-2024 Albumin Level 3.4 G/dL Low 3.5-5.0 [facility] ([place]) Comment on above: Order Comment: Fax R esults to [phone] Doctor Rober Herron. AA Performed By: #### L IPID, GFR, CMP #### [address] [address] Albumin/Globulin [Mass ratio] 1.1 {ratio} Normal 1.1-2.5 [facility] ([place]) Comment on above: Order Comment: Fax R esults to [phone] Doctor Rober Herron. AA Performed By: #### L IPID, GFR, CMP #### [address] [address] ALP [Catalytic activity/Vol] 79 U/L Normal 40-135 [facility] ([place]) Comment on above: Order Comment: Fax R esults to [phone] Doctor Rober Herron. AA Performed By: #### L IPID, GFR, CMP #### [address] [address] ALT [Catalytic activity/Vol] 28 U/L Normal 14-59 [facility] ([place]) Comment on above: Order Comment: Fax R esults to [phone] Doctor Rober Herron. AA Performed By: #### L IPID, GFR, CMP #### [address] [address] AST [Catalytic activity/Vol] 18 U/L Normal 10-40 [facility] ([place] Comment on above: Order Comment: Fax R esults to [phone] Doctor Rober Herron. AA Performed By: #### L IPID, GFR, CMP #### [address] [address] Bili Total 0.3 mg/dL Normal 0.2-1.0 [facility] ([place]) Comment on above: Order Comment: Fax R esults to [phone] Doctor Rober Herron. AA Result Comment: Use of this assay is not recommended for patients undergoing treatment with eltrombopag due to the potential for falsely elevated results. Performed By: #### L IPID, GFR, CMP #### [address] [address] BUN/Creatinine Ratio 14 ratio Normal 7-27 [facility] ([place]) Comment on above: Order Comment: Fax R esults to [phone] Doctor Rober Herron. AA Performed By: #### L IPID, GFR, CMP #### [address] [address] Calcium [Mass/Vol] 9.0 mg/dL Normal 8.4-10.2 [facility] ([place]) Comment on above: Order Comment: Fax R esults to [phone] Doctor Rober Herron. AA Performed By: #### L IPID, GFR, CMP #### [address] [address] Chloride [Moles/Vol] 104 mmol/L Normal 98-107 [facility] ([place]) Comment on above: Order Comment: Fax R esults to [phone] Doctor Rober Herron. AA Performed By: #### L IPID, GFR, CMP #### [address] [address] CO2 [Moles/Vol] 30 mmol/L High 22-29 [facility] ([place]) Comment on above: Order Comment: Fax R esults to [phone] Doctor Rober Herron. AA Performed By: #### L IPID, GFR, CMP #### [address] [id number] Creatinine [Mass/Vol] 0.84 mg/dL Normal 0.55-1.02 [facility] ([place]) Comment on above: Order Comment: Fax R esults to [phone] Doctor Rober Herron. AA Performed By: #### L IPID, GFR, CMP #### [place] [address] Electrolyte Balance 8.0 mEq/L Normal 4.0-15.0 [facility] ([place]) Comment on above: Order Comment: Fax R esults to [phone] Doctor Rober Herron. AA Performed By: #### L IPID, GFR, CMP #### [address] [place] [address] Globulin 3.2 G/dL Normal [facility] ([place]) Comment on above: Order Comment: Fax R esults to [phone] Doctor Rober Herron. AA Performed By: #### L IPID, GFR, CMP #### [address] [address] Glucose [Mass/Vol] 130 mg/dL High 70-105 [facility] ([place]) Comment on above: Order Comment: Fax R esults to [phone] Doctor Rober Herron. AA Performed By: #### L IPID, GFR, CMP #### [address] [address] Potassium [Moles/Vol] 4.5 mmol/L Normal 3.5-5.1 [facility] ([place]) Comment on above: Order Comment: Fax R esults to [phone] Doctor Rober Herron. AA Performed By: #### L IPID, GFR, CMP #### [address] [address] Sodium [Moles/Vol] 142 mmol/L Normal 136-145 [facility] ([place]) Comment on above: Order Comment: Fax R esults to [phone] Doctor Rober Herron. AA Performed By: #### L IPID, GFR, CMP #### [address] [address] Total Protein 6.6 G/dL Normal 6.4-8.2 [facility] ([place]) Comment on above: Order Comment: Fax R esults to [phone] Doctor Rober Herron. AA Performed By: #### L IPID, GFR, CMP #### [address] [address] Urea nitrogen [Mass/Vol] 12 mg/dL Normal 7-18 [facility] ([place]) Comment on above: Order Comment: Fax R esults to [phone] Doctor Rober Herron. AA Performed By: #### L IPID, GFR, CMP #### [address] [address] LABORATORYOrdered By: SYSTEM SYSTEM on 06-10-2024 Albumin BCP dye [Mass/Vol] 3.4 G/dL Low 3.5 - 5.0 G/dL AO ADM SS Albumin/Globulin [Mass ratio] 1.1 {ratio} Normal 1.1 - 2.5 ratio AO ADM SS ALP [Catalytic activity/Vol] 79 U/L Normal 40 - 135 U/L AO ADM SS ALT With P-5'-P [Catalytic activity/Vol] 28 U/L Normal 14 - 59 U/L AO ADM SS AST With P-5'-P [Catalytic activity/Vol] 18 U/L Normal 10 - 40 U/L AO ADM SS Bilirubin [Mass/Vol] 0.3 mg/dL Normal 0.2 - 1 .0 mg/dL AO ADM SS Comment on above: Interpretive Data: U se of this assay is not recommended for patients undergoing treatment with eltrombopag due to the potential for falsely elevated results. Calcium [Mass/Vol] 9.0 mg/dL Normal 8.4 - 10. 2 mg/dL AO ADM SS Chloride [Moles/Vol] 104 mmol/L Normal 98 - 10 7 mmol/L AO ADM SS CO2 [Moles/Vol] 30 mmol/L High 22 - 29 mmol/L AO ADM SS Creatinine [Mass/Vol] 0.84 mg/dL Normal 0.55 - 1.02 mg/dL AO ADM SS Electrolyte Balance 8.0 mEq/L Normal 4.0 - 15 .0 mEq/L AO ADM SS GFR/1.73 sq M.predicted among blacks MDRD (S/P/Bld) [Vol rate/Area] 86 ml/min/1.73sqm Invalid Interpretation Code AO Chemistry S Comment on above: Interpretive Data: GFR Population mean for , Non- Americans Ages 20-29 = 116 mL/min/1.73 sq.m. Ages 30-39 = 107 mL/min/1.73 sq.m. Ages 40-49 = 99 mL/min/1.73 sq.m. Ages 50-59 = 93 mL/min/1.73 sq.m. Ages 60-69 = 85 mL/min/1.73 sq.m. Ages 70+ = 75 mL/min/1.73 sq.m. Chronic Kidney Disease: Less than 60 mL/min/1.73 square meters End Stage Renal Disease: Less than 15 mL/min/1.73 square meters GFR/1.73 sq M.predicted among non-blacks MDRD (S/P/Bld) [Vol rate/Area] 71 ml/min/1.73sqm Invalid Interpretation Code AO Chemistry S Comment on above: Interpretive Data: GFR Population mean for , Non- Americans Ages 20-29 = 116 mL/min/1.73 sq.m. Ages 30-39 = 107 mL/min/1.73 sq.m. Ages 40-49 = 99 mL/min/1.73 sq.m. Ages 50-59 = 93 mL/min/1.73 sq.m. Ages 60-69 = 85 mL/min/1.73 sq.m. Ages 70+ = 75 mL/min/1.73 sq.m. Chronic Kidney Disease: Less than 60 mL/min/1.73 square meters End Stage Renal Disease: Less than 15 mL/min/1.73 square meters Globulin 3.2 G/dL Invalid Interpretation Code AO ADM SS Glucose [Mass/Vol] 130 mg/dL High 70 - 105 mg/dL AO ADM SS Potassium [Moles/Vol] 4.5 mmol/L Normal 3.5 - 5.1 mmol/L AO ADM SS Protein [Mass/Vol] 6.6 G/dL Normal 6.4 - 8.2 G/dL AO ADM SS Sodium [Moles/Vol] 142 mmol/L Normal 136 - 145 mmol/L AO ADM SS Urea nitrogen [Mass/Vol] 12 mg/dL Normal 7 - 18 mg/dL AO ADM SS Urea nitrogen/Creatinine [Mass ratio] 14 ratio Normal 7 - 27 ratio AO ADM SS Basophil, Absolute 0.1 103/mcL Normal 0.0 - 0.2 10^3/mcL AO Workflow SS Basophils/100 WBC (Bld) 0.9 % Normal 0.0 - 2.5 % AO Workflow SS Eosinophil, Absolute 0.2 103/mcL Normal 0.0 - 0 .4 10^3/mcL AO Workflow SS Eosinophils/100 WBC (Bld) 2.8 % Normal 0.0 - 7.0 % AO Workflow SS Erythrocyte distribution width (RBC) [Ratio] 13.6 % Normal 11.5 - 14.5 % AO Workflow SS Glucose [Mass/Vol] 131 mg/dL Invalid Interpretation Code AO Chemistry S Comment on above: Interpretive Data: E stimated average glucose (eAG) is a calculated value from Hemoglobin A1C and is parts sales representative of the average blood glucose level in the last 2-3 month period. Normal range: less than 114 mg/dL HbA1c (Bld) [Mass fraction] 6.2 % Normal 4.3 - 6.4 % AO ADM SS Hematocrit (Bld) [Volume fraction] 41.5 % Normal 37.0 - 47.0 % AO Workflow SS Hemoglobin (Bld) [Mass/Vol] 14.1 G/dL Normal 12.0 - 16.0 G/dL AO Workflow SS Lymphocyte, Absolute 2.7 103/mcL Normal 0.8 - 3 .9 10^3/mcL AO Workflow SS Lymphocytes/100 WBC (Bld) 43.3 % Normal 10.0 - 50.0 % AO Workflow SS MCH (RBC) [Entitic mass] 29.4 pg Normal 27.0 - 31.2 pg AO Workflow SS MCHC 33.9 G/dL Normal 33.0 - 37.0 G/dL AO Workflow SS MCV (RBC) [Entitic vol] 86.6 fL Normal 80.0 - 94.0 fL AO Workflow SS Monocyte, Absolute 0.6 103/mcL Normal 0.2 - 1.0 10^3/mcL AO Workflow SS Monocytes/100 WBC (Bld) 9.8 % Normal 1.7 - 13.0 % AO Workflow SS Neutrophil, Absolute 2.7 103/mcL Low 2.9 - 6 .2 10^3/mcL AO Workflow SS Neutrophils/100 WBC (Bld) 43.2 % Normal 37.0 - 80.0 % AO Workflow SS Platelet mean volume (Bld) [Entitic vol] 8.3 fL Normal 7.4 - 10.4 fL AO Workflow SS Platelets (Bld) [#/Vol] 229 103/mcL Normal 130 - 400 10^3/mcL AO Workflow SS RBC (Bld) [#/Vol] 4.79 106/mcL Normal 4.20 - 5.4 0 10^6/mcL AO Workflow SS WBC (Bld) [#/Vol] 6.1 103/mcL Normal 4.6 - 10.8 10^3/mcL AO Workflow SS LABORATORYOrdered By: Bennett Meyers on 06-10-2024 Cholesterol [Mass/Vol] 172 mg/dL Normal 0 - 200 mg/dL AO ADM SS Comment on above: Interpretive Data: C holesterol Reference Interval: Less than 200 Desirable 200-239 Borderline high risk 240 and above High risk Cholesterol in HDL [Mass/Vol] 46 mg/dL Normal 40 - 60 mg/dL AO ADM SS Cholesterol in LDL [Mass/Vol] 84 mg/dL Normal 0 - 130 mg/dL AO ADM SS Triglyceride [Mass/Vol] 212 mg/dL High 0 - 150 mg/dL AO ADM SS Comment on above: Interpretive Data: T riglyceride Reference Interval: Less than 150 Normal 150-199 Borderline high risk 200-499 High risk 500 or higher Very high risk LABORATORYOrdered By: Jt Warren on 06-10-2024 aPTT Coag (PPP) [Time] 32.6 s Normal 25.0 - 35.0 seconds AO [facility] SS Comment on above: Interpretive Data: F or Heparin anticoagulation therapy, the recommended therapeutic range is: 45.4-75.9 seconds. Patients on heparin therapy may have an extreme result. INR Coag (PPP) [Relative time] 1.0 {INR} Invalid Interpretation Code AO [facility] Comment on above: Interpretive Data: Tari flanagan [employer] (CHEST, 1991, 102:[id number]) recommended therapeutic range for oral anticoagulant therapy is: LOW RISK: Prophylaxis of venous thrombosis INR: 2.0-3.0 Treatment of pulmonary embolism 2.0-3.0 Prevention of systemic embolism 2.0-3.0 HIGH RISK: Mechanical prosthetic valves 2.5-3.5 PT Coag (PPP) [Time] 11.2 s Normal 9.0 - 1 4.4 seconds AO [facility] LIPIDon 06-10-2024 Cholesterol [Mass/Vol] 172 mg/dL Normal 0-200 [facility] ([place]) Comment on above: Result Comment: Chol esterol Reference Interval: Less than 200 Desirable 200-239 Borderline high risk 240 and above High risk Performed By: #### L IPID, GFR, CMP #### [address] [address] Cholesterol in HDL [Mass/Vol] 46 mg/dL Normal 40-60 [facility] ([place]) Comment on above: Performed By: #### L IPID, GFR, CMP #### [address] [address] Cholesterol in LDL [Mass/Vol] 84 mg/dL Normal 0-130 [facility] ([place]) Comment on above: Performed By: #### L IPID, GFR, CMP #### [address] [address] Triglyceride [Mass/Vol] 212 mg/dL High 0-150 [facility] ([place]) Comment on above: Result Comment: Trig lyceride Reference Interval: Less than 150 Normal 150-199 Borderline high risk 200-499 High risk 500 or higher Very high risk Performed By: #### L IPID, GFR, CMP #### [address] [address] PROon 06-10-2024 PT Coag (PPP) [Time] 11.2 s Normal 9.0-14.4 [facility] ([place]) Comment on above: Performed By: #### A DIFF, CBC, PRO, APTT, A1C, ANEU ####[address] [place], [place] [address] PT International Ratio 1.0 Normal [facility] ([place]) Comment on above: Result Comment: [employer] (CHEST, 1992, [id number]) recommended therapeutic range for oral anticoagulant therapy is: LOW RISK: Prophylaxis of venous thrombosis INR: 2.0-3.0 Treatment of pulmonary embolism 2.0-3.0 Prevention of systemic embolism 2.0-3.0 HIGH RISK: Mechanical prosthetic valves 2.5-3.5 Performed By: #### A DIFF, CBC, PRO, APTT, A1C, ANEU ####[id number] [place], [place] [address] XR CHEST 2 VIEWSon XR CHEST 2 VIEWS ORIGINAL EXAMINATION: TWO XRAY VIEWS OF THE CHEST 06/10/2024 10:08 am COMPARISON: None. HISTORY: ORDERING SYSTEM PROVIDED HISTORY: Reason for Exam: pre operative testing FINDINGS: Normal cardiomediastinal silhouette. No focal consolidation, pleural effusion, or visible pneumothorax. Degenerative changes of the spine. Partially visualized postsurgical changes of the lower cervical spine. Possible left shoulder calcific tendinitis. IMPRESSION: No acute radiographic abnormality. Possible left shoulder calcific tendinitis. I have personally reviewed the images of this examination and agree with the resident's findings and interpretations. Interpreted by: Felix Camacho MD Preliminary Report By: Jyoti Hernandez Electronically signed By Felix Camacho MD Dictated Date: 06/10/2024 11:37:15 AM Prelim Date: 06/10/2024 11:42:24 AM Sign Date: 06/10/2024 11:42:24 AM Ordering Provider: ROBER HERORN Normal [facility] ([place]) MRI SPINE LUMBAR W/O CONTRAS Ton 05-01-2024 MRI SPINE LUMBAR W/O CONTRAST ORIGINAL EXAMINATION: MRI OF THE LUMBAR SPINE WITHOUT CONTRAST, 05/01/2024 8:34 am TECHNIQUE: Multiplanar multisequence MRI of the lumbar spine was performed without the administration of intravenous contrast. COMPARISON: CT lumbar spine 01/21/2022. HISTORY: ORDERING SYSTEM PROVIDED HISTORY: Reason for Exam: Other intervertebral disc degeneration, lumbosacral region. Low back pain radiating down the hip. FINDINGS: BONES/ALIGNMENT: There are 5 lumbar type vertebral bodies with the most caudal fully segmented body denoted as L5. There are small ribs at T12. There is normal alignment of the spine. The vertebral body heights are maintained. Minimal Modic type 1 change along the superior endplate of L1. Multilevel mild disc desiccation predominantly L4-5, L5-S1. SPINAL CORD: The conus terminates normally the level of L1. SOFT TISSUES: No paraspinal mass identified. T12-L1: There is no significant spinal canal stenosis or neural foraminal narrowing. L1-L2: There is no significant spinal canal stenosis or neural foraminal narrowing. L2-L3: Mild disc bulge eccentric to the right. There is no significant spinal canal stenosis or left neural foraminal narrowing. Minimal right neural foraminal stenosis L3-L4: facet arthropathy. There is no significant spinal canal stenosis or neural foraminal narrowing. L4-L5: Disc bulge with a high-intensity zone and facet arthropathy. Flattening of thecal sac. Minimal spinal canal stenosis. Minimal bilateral neural foraminal narrowing. L5-S1: Disc bulge and facet arthropathy. There is no significant spinal canal stenosis or neural foraminal narrowing. IMPRESSION: Mild degenerative changes of the lumbar spine. Interpreted by: Azucena Echavarria MD Preliminary Report By: Cady Oneill Electronically signed By Azucena Echavarria MD Dictated Date: 05/01/2024 8:46:51 AM Prelim Date: 05/01/2024 9:27:57 AM Sign Date: 05/01/2024 9:27:57 AM Ordering Provider: LAKESHA ARVIZU [facility] ([place]) Computer Technologist Cytology Reporton 2023 Computer Technologist Cytology Report . Pathology Reports Accession: Collected Date/Time: Received Date/Time: Pathologist: [id number] 03/12/2024 09:09 EDT 03/12/2024 18:00 EDT Computer Technologist Cytology Report SPECIMEN: Specimen Description: Liquid Prep w/ HPV Specimen: No Source Given Screening or Diagnostic: Screening RELEVANT HISTORY: LMP: NOT GIVEN SPECIMEN ADEQUACY: SATISFACTORY FOR EVALUATION Endocervical/Transfor mational zone component present INTERPRETATION/RESULT S: NEGATIVE FOR INTRAEPITHELIAL LESION OR MALIGNANCY HIGH RISK HPV TESTING: Event Code Result HPV Interp See Interp HPVN HPV Interp Text: High Risk HPV Typing: NEGATIVE HPV types 16, 18, 31, 33, 35, 39, 45, 51, 52, 56, 58, 59, 66 and 68 DNA were undetectable or below the pre-set threshold. The ros High-Risk HPV DNA Test is not intended for use as a screening device for Pap normal women under age 30 and is not intended to substitute for regular Pap screening. The ros High-Risk HPV DNA Test is designed to augment existing methods for the detection of cervical disease and should be used in conjunction with clinical information derived from other diagnostic and screening tests, physical examinations and full medical history in accordance with appropriate patient management procedures. NOTE: A negative result does not preclude the presence of HPV infection because results depend on adequate specimen collection, absence of inhibitors and sufficient DNA to be detected. As of: 03/20/24 10:18 EDT COMMENT: This Pap Test was successfully processed and evaluated with the assistance of the [employer] Test Imaging System. Pathology Reports Accession: Collected Date/Time: Received Date/Time: Pathologist: [id number] 03/12/2024 09:09 EDT 03/12/2024 18:00 EDT Electronically Signed by Pathology report verified by [facility] Screened by: [place] Electronically signed by Kristen CAMEJO (ASCP) Sign-Out Date: 03/20/2024 10:19 Performing Lab: [facility], [address] [place] [address] Pathology Dept Disclaimer The Pap test is a screening test for cervical cancer. As evidenced by published data, it is subject to both inherent false negative and false positive results. Your patient's results should be interpreted in context with pertinent clinical history including gynecological examination. Normal [facility] ([place]) HPVon 03-19-2024 HPV Interp Normal See Interp HPVN [facility] ([place]) Comment on above: Order Comment: Order placed by AP_HPV_ORDER rule from [id number] Result Comment: High Risk HPV Typing: NEGATIVE HPV types 16, 18, 31, 33, 35, 39, 45, 51, 52, 56, 58, 59, 66 and 68 DNA were undetectable or below the pre-set threshold. The ros High-Risk HPV DNA Test is not intended for use as a screening device for Pap normal women under age 30 and is not intended to substitute for regular Pap screening. The ros High-Risk HPV DNA Test is designed to augment existing methods for the detection of cervical disease and should be used in conjunction with clinical information derived from other diagnostic and screening tests, physical examinations and full medical history in accordance with appropriate patient management procedures. NOTE: A negative result does not preclude the presence of HPV infection because results depend on adequate specimen collection, absence of inhibitors and sufficient DNA to be detected. See Interp HPVN Performed By: #### H PV ####[place] [address] HPV Source Cervix [facility] ([place]) Comment on above: Order Comment: Order placed by AP_HPV_ORDER rule from [id number] Performed By: #### H PV ####[place] [address] XR FOOT MINIMUM 3 VIEWS LEFT on 03-13-2024 XR FOOT MINIMUM 3 VIEWS LEFT ORIGINAL EXAMINATION: THREE XRAY VIEWS OF THE LEFT FOOT03/13/2024 10:15 am FOOT 3 VIEWS LEFT COMPARISON: None HISTORY: ORDERING SYSTEM PROVIDED HISTORY: Reason for Exam: left dorsal foot pain FINDINGS: There is no acute fracture or dislocation. Joint spaces are maintained. There are small enthesophytes at the plantar and posterior calcaneus. The soft tissues are unremarkable. IMPRESSION: No acute bony abnormality. Interpreted by: Angel Cummins Preliminary Report By: Angel Cummins Electronically signed By Angel Cummins Dictated Date: 03/13/2024 5:21:37 PM Prelim Date: 03/13/2024 5:22:45 PM Sign Date: 03/13/2024 5:22:45 PM Ordering Provider: KATHI SEARS [facility] ([place]) .Auto Diffon 03-04-2024 Basophil, Absolute 0.0 10 3/mcL Normal 0.0-0.2 [facility] ([place]) Comment on above: Performed By: #### F T4, LIP, ANEU, TSH, GFR, ADIFF, CMP, CBC, A1C, LIPID ####[address] [place], [place] [address] Basophils/100 WBC (Bld) 0.5 % Normal 0.0-2.5 [facility] ([place]) Comment on above: Performed By: #### F T4, LIP, ANEU, TSH, GFR, ADIFF, CMP, CBC, A1C, LIPID ####[address] [place], [place] [address] Eosinophil, Absolute 0.1 10 3/mcL Normal 0.0-0.4 [facility] ([place]) Comment on above: Performed By: #### F T4, LIP, ANEU, TSH, GFR, ADIFF, CMP, CBC, A1C, LIPID ####[address] [place], [place] [address] Eosinophils/100 WBC (Bld) 1.3 % Normal 0.0-7.0 [facility] ([place]) Comment on above: Performed By: #### F T4, LIP, ANEU, TSH, GFR, ADIFF, CMP, CBC, A1C, LIPID ####[address] [place], [place] [address] Lymphocyte, Absolute 2.2 10 3/mcL Normal 0.8-3.9 [facility] ([place]) Comment on above: Performed By: #### F T4, LIP, ANEU, TSH, GFR, ADIFF, CMP, CBC, A1C, LIPID ####[address] [place], [place] [address] Lymphocytes/100 WBC (Bld) 35.9 % Normal 10.0-50.0 [facility] ([place]) Comment on above: Performed By: #### F T4, LIP, ANEU, TSH, GFR, ADIFF, CMP, CBC, A1C, LIPID ####[address] [place], [place] [address] Monocyte, Absolute 0.6 10 3/mcL Normal 0.2-1.0 [facility] ([place]) Comment on above: Performed By: #### F T4, LIP, ANEU, TSH, GFR, ADIFF, CMP, CBC, A1C, LIPID ####[address] [place], [place] [address] Monocytes/100 WBC (Bld) 9.9 % Normal 1.7-13.0 [facility] ([place]) Comment on above: Performed By: #### F T4, LIP, ANEU, TSH, GFR, ADIFF, CMP, CBC, A1C, LIPID ####[address] [place], [place] [address] Neutrophils/100 WBC (Bld) 52.4 % Normal 37.0-80.0 [facility] ([place]) Comment on above: Performed By: #### F T4, LIP, ANEU, TSH, GFR, ADIFF, CMP, CBC, A1C, LIPID ####[address] [place], [place] [address] .GFRon 03-04-2024 GFR 87 ml/min/1.73sqm Normal [facility] ([place]) Comment on above: Result Comment: GFR Population mean for , Non- Americans Ages 20-29 = 116 mL/min/1.73 sq.m. Ages 30-39 = 107 mL/min/1.73 sq.m. Ages 40-49 = 99 mL/min/1.73 sq.m. Ages 50-59 = 93 mL/min/1.73 sq.m. Ages 60-69 = 85 mL/min/1.73 sq.m. Ages 70+ = 75 mL/min/1.73 sq.m. Chronic Kidney Disease: Less than 60 mL/min/1.73 square meters End Stage Renal Disease: Less than 15 mL/min/1.73 square meters Performed By: #### F T4, LIP, ANEU, TSH, GFR, ADIFF, CMP, CBC, A1C, LIPID ####[address] [place], [place] [address] GFR Non- 72 ml/min/1.73sqm Normal [facility] ([place]) Comment on above: Result Comment: GFR Population mean for , Non- Americans Ages 20-29 = 116 mL/min/1.73 sq.m. Ages 30-39 = 107 mL/min/1.73 sq.m. Ages 40-49 = 99 mL/min/1.73 sq.m. Ages 50-59 = 93 mL/min/1.73 sq.m. Ages 60-69 = 85 mL/min/1.73 sq.m. Ages 70+ = 75 mL/min/1.73 sq.m. Chronic Kidney Disease: Less than 60 mL/min/1.73 square meters End Stage Renal Disease: Less than 15 mL/min/1.73 square meters Performed By: #### F T4, LIP, ANEU, TSH, GFR, ADIFF, CMP, CBC, A1C, LIPID ####[address] [place], [place] [address] .NEUABSon 03-04-2024 Neutrophil, Absolute 3.2 10 3/mcL Normal 2.9-6.2 [facility] ([place]) Comment on above: Performed By: #### F T4, LIP, ANEU, TSH, GFR, ADIFF, CMP, CBC, A1C, LIPID ####[address] [place], [place] [address] A1Con 03-04-2024 HbA1c (Bld) [Mass fraction] 7.2 % High 4.3-6.4 [facility] ([place]) Comment on above: Performed By: #### F T4, LIP, ANEU, TSH, GFR, ADIFF, CMP, CBC, A1C, LIPID ####[address] [place], [place] [address] CBCon 03-04-2024 Erythrocyte distribution width (RBC) [Ratio] 13.3 % Normal 11.5-14.5 [facility] ([place]) Comment on above: Performed By: #### F T4, LIP, ANEU, TSH, GFR, ADIFF, CMP, CBC, A1C, LIPID ####[address] [place], [place] [address] Hematocrit (Bld) [Volume fraction] 40.8 % Normal 37.0-47.0 [facility] ([place]) Comment on above: Performed By: #### F T4, LIP, ANEU, TSH, GFR, ADIFF, CMP, CBC, A1C, LIPID ####[address] [place], [place] [address] Hgb 14.2 G/dL Normal 12.0-16.0 [facility] ([place] Comment on above: Performed By: #### F T4, LIP, ANEU, TSH, GFR, ADIFF, CMP, CBC, A1C, LIPID ####[address] [place], [place] [address] MCH (RBC) [Entitic mass] 30.4 pg Normal 27.0-31.2 [facility] ([place]) Comment on above: Performed By: #### F T4, LIP, ANEU, TSH, GFR, ADIFF, CMP, CBC, A1C, LIPID ####[address] [place], [place] [address] MCHC 34.9 G/dL Normal 33.0-37.0 [facility] ([place]) Comment on above: Performed By: #### F T4, LIP, ANEU, TSH, GFR, ADIFF, CMP, CBC, A1C, LIPID ####[address] [place], [place] [address] MCV (RBC) [Entitic vol] 87.0 fL Normal 80.0-94.0 [facility] ([place]) Comment on above: Performed By: #### F T4, LIP, ANEU, TSH, GFR, ADIFF, CMP, CBC, A1C, LIPID ####[address] [place], [place] [address] Platelet 255 10 3/mcL Normal 130-400 [facility] ([place]) Comment on above: Performed By: #### F T4, LIP, ANEU, TSH, GFR, ADIFF, CMP, CBC, A1C, LIPID ####[address] [place], [place] [address] Platelet mean volume (Bld) [Entitic vol] 8.4 fL Normal 7.4-10.4 [facility] ([place]) Comment on above: Performed By: #### F T4, LIP, ANEU, TSH, GFR, ADIFF, CMP, CBC, A1C, LIPID ####[address] [place], [place] [address] RBC 4.68 10 6/mcL Normal 4.20-5.40 [facility] ([place]) Comment on above: Performed By: #### F T4, LIP, ANEU, TSH, GFR, ADIFF, CMP, CBC, A1C, LIPID ####[address] [place], [place] [address] WBC 6.1 10 3/mcL Normal 4.6-10.8 [facility] ([place]) Comment on above: Performed By: #### F T4, LIP, ANEU, TSH, GFR, ADIFF, CMP, CBC, A1C, LIPID ####[address] [place], [place] [address] CMPon 03-04-2024 Albumin Level 3.2 G/dL Low 3.5-5.0 [facility] ([place]) Comment on above: Performed By: #### F T4, LIP, ANEU, TSH, GFR, ADIFF, CMP, CBC, A1C, LIPID ####[address] [place], [place] [address] Albumin/Globulin [Mass ratio] 1.0 {ratio} Low 1.1-2.5 [facility] ([place]) Comment on above: Performed By: #### F T4, LIP, ANEU, TSH, GFR, ADIFF, CMP, CBC, A1C, LIPID ####[address] [place], [place] [address] ALP [Catalytic activity/Vol] 67 U/L Normal 40-135 [facility] ([place]) Comment on above: Performed By: #### F T4, LIP, ANEU, TSH, GFR, ADIFF, CMP, CBC, A1C, LIPID ####[address] [place], [place] [address] ALT [Catalytic activity/Vol] 23 U/L Normal 14-59 [facility] ([place]) Comment on above: Performed By: #### F T4, LIP, ANEU, TSH, GFR, ADIFF, CMP, CBC, A1C, LIPID ####[address] [place], [place] [address] AST [Catalytic activity/Vol] 16 U/L Normal 10-40 [facility] ([place]) Comment on above: Performed By: #### F T4, LIP, ANEU, TSH, GFR, ADIFF, CMP, CBC, A1C, LIPID ####[address] [place], [place] [address] Bili Total 0.3 mg/dL Normal 0.2-1.0 [facility] ([place]) Comment on above: Result Comment: Use of this assay is not recommended for patients undergoing treatment with eltrombopag due to the potential for falsely elevated results. Performed By: #### F T4, LIP, ANEU, TSH, GFR, ADIFF, CMP, CBC, A1C, LIPID ####[address] [place], [place] [address] BUN/Creatinine Ratio 11 ratio Normal 7-27 [facility] ([place]) Comment on above: Performed By: #### F T4, LIP, ANEU, TSH, GFR, ADIFF, CMP, CBC, A1C, LIPID ####[address] [place], [place] [address] Calcium [Mass/Vol] 9.0 mg/dL Normal 8.4-10.2 [facility] ([place]) Comment on above: Performed By: #### F T4, LIP, ANEU, TSH, GFR, ADIFF, CMP, CBC, A1C, LIPID ####[address] [place], [place] [address] Chloride [Moles/Vol] 102 mmol/L Normal 98-107 [facility] ([place]) Comment on above: Performed By: #### F T4, LIP, ANEU, TSH, GFR, ADIFF, CMP, CBC, A1C, LIPID ####[address] [place], [place] [address] CO2 [Moles/Vol] 28 mmol/L Normal 22-29 [facility] ([place]) Comment on above: Performed By: #### F T4, LIP, ANEU, TSH, GFR, ADIFF, CMP, CBC, A1C, LIPID ####[address] [place], [place] [address] Creatinine [Mass/Vol] 0.83 mg/dL Normal 0.55-1.02 [facility] ([place]) Comment on above: Performed By: #### F T4, LIP, ANEU, TSH, GFR, ADIFF, CMP, CBC, A1C, LIPID ####[address] [place], [place] [address] Electrolyte Balance 12.0 mEq/L Normal 4.0-15.0 [facility] ([place]) Comment on above: Performed By: #### F T4, LIP, ANEU, TSH, GFR, ADIFF, CMP, CBC, A1C, LIPID ####[address] [place], [place] [address] Globulin 3.2 G/dL Normal [facility] ([place]) Comment on above: Performed By: #### F T4, LIP, ANEU, TSH, GFR, ADIFF, CMP, CBC, A1C, LIPID ####[address] [place], [place] [address] Glucose [Mass/Vol] 154 mg/dL High 70-105 [facility] ([place]) Comment on above: Performed By: #### F T4, LIP, ANEU, TSH, GFR, ADIFF, CMP, CBC, A1C, LIPID ####[address] [place], [place] [address] Potassium [Moles/Vol] 4.2 mmol/L Normal 3.5-5.1 [facility] ([place]) Comment on above: Performed By: #### F T4, LIP, ANEU, TSH, GFR, ADIFF, CMP, CBC, A1C, LIPID ####[address] [place], [place] [address] Sodium [Moles/Vol] 142 mmol/L Normal 136-145 [facility] ([place]) Comment on above: Performed By: #### F T4, LIP, ANEU, TSH, GFR, ADIFF, CMP, CBC, A1C, LIPID ####[address] [place], [place] [address] Total Protein 6.4 G/dL Normal 6.4-8.2 [facility] ([place]) Comment on above: Performed By: #### F T4, LIP, ANEU, TSH, GFR, ADIFF, CMP, CBC, A1C, LIPID ####[address] [place], [place] [address] Urea nitrogen [Mass/Vol] 9 mg/dL Normal 7-18 [facility] ([place]) Comment on above: Performed By: #### F T4, LIP, ANEU, TSH, GFR, ADIFF, CMP, CBC, A1C, LIPID ####[address] [place], [place] [address] FT4on 03-04-2024 Free T4 [Mass/Vol] 1.19 ng/dL Normal 0.76-1.46 [facility] ([place]) Comment on above: Performed By: #### F T4, LIP, ANEU, TSH, GFR, ADIFF, CMP, CBC, A1C, LIPID ####[address] [place], [place] [address] LABORATORYOrdered By: SYSTEM SYSTEM on 03-04-2024 Albumin BCP dye [Mass/Vol] 3.2 G/dL Low 3.5 - 5.0 G/dL AO ADM SS Albumin/Globulin [Mass ratio] 1.0 {ratio} Low 1.1 - 2.5 ratio AO ADM SS ALP [Catalytic activity/Vol] 67 U/L Normal 40 - 135 U/L AO ADM SS ALT With P-5'-P [Catalytic activity/Vol] 23 U/L Normal 14 - 59 U/L AO ADM SS AST With P-5'-P [Catalytic activity/Vol] 16 U/L Normal 10 - 40 U/L AO ADM SS Basophil, Absolute 0.0 103/mcL Normal 0.0 - 0.2 10^3/mcL AO Workflow SS Basophils/100 WBC (Bld) 0.5 % Normal 0.0 - 2.5 % AO Workflow SS Bilirubin [Mass/Vol] 0.3 mg/dL Normal 0.2 - 1 .0 mg/dL AO ADM SS Comment on above: Interpretive Data: U se of this assay is not recommended for patients undergoing treatment with eltrombopag due to the potential for falsely elevated results. Calcium [Mass/Vol] 9.0 mg/dL Normal 8.4 - 10. 2 mg/dL AO ADM SS Chloride [Moles/Vol] 102 mmol/L Normal 98 - 10 7 mmol/L AO ADM SS CO2 [Moles/Vol] 28 mmol/L Normal 22 - 29 mmol/L AO ADM SS Creatinine [Mass/Vol] 0.83 mg/dL Normal 0.55 - 1.02 mg/dL AO ADM SS Electrolyte Balance 12.0 mEq/L Normal 4.0 - 15 .0 mEq/L AO ADM SS Eosinophil, Absolute 0.1 103/mcL Normal 0.0 - 0 .4 10^3/mcL AO Workflow SS Eosinophils/100 WBC (Bld) 1.3 % Normal 0.0 - 7.0 % AO Workflow SS Erythrocyte distribution width (RBC) [Ratio] 13.3 % Normal 11.5 - 14.5 % AO Workflow SS Free T4 [Mass/Vol] 1.19 ng/dL Normal 0.76 - 1. 46 ng/dL AO ADM SS GFR/1.73 sq M.predicted among blacks MDRD (S/P/Bld) [Vol rate/Area] 87 ml/min/1.73sqm Invalid Interpretation Code AO Chemistry S Comment on above: Interpretive Data: GFR Population mean for , Non- Americans Ages 20-29 = 116 mL/min/1.73 sq.m. Ages 30-39 = 107 mL/min/1.73 sq.m. Ages 40-49 = 99 mL/min/1.73 sq.m. Ages 50-59 = 93 mL/min/1.73 sq.m. Ages 60-69 = 85 mL/min/1.73 sq.m. Ages 70+ = 75 mL/min/1.73 sq.m. Chronic Kidney Disease: Less than 60 mL/min/1.73 square meters End Stage Renal Disease: Less than 15 mL/min/1.73 square meters GFR/1.73 sq M.predicted among non-blacks MDRD (S/P/Bld) [Vol rate/Area] 72 ml/min/1.73sqm Invalid Interpretation Code AO Chemistry S Comment on above: Interpretive Data: GFR Population mean for , Non- Americans Ages 20-29 = 116 mL/min/1.73 sq.m. Ages 30-39 = 107 mL/min/1.73 sq.m. Ages 40-49 = 99 mL/min/1.73 sq.m. Ages 50-59 = 93 mL/min/1.73 sq.m. Ages 60-69 = 85 mL/min/1.73 sq.m. Ages 70+ = 75 mL/min/1.73 sq.m. Chronic Kidney Disease: Less than 60 mL/min/1.73 square meters End Stage Renal Disease: Less than 15 mL/min/1.73 square meters Globulin 3.2 G/dL Invalid Interpretation Code AO ADM SS Glucose [Mass/Vol] 154 mg/dL High 70 - 105 mg/dL AO ADM SS HbA1c (Bld) [Mass fraction] 7.2 % High 4.3 - 6.4 % AO ADM SS Hematocrit (Bld) [Volume fraction] 40.8 % Normal 37.0 - 47.0 % AO Workflow SS Hemoglobin (Bld) [Mass/Vol] 14.2 G/dL Normal 12.0 - 16.0 G/dL AO Workflow SS Lipase [Catalytic activity/Vol] 34 U/L Normal 16 - 77 U/L AO ADM SS Lymphocyte, Absolute 2.2 103/mcL Normal 0.8 - 3 .9 10^3/mcL AO Workflow SS Lymphocytes/100 WBC (Bld) 35.9 % Normal 10.0 - 50.0 % AO Workflow SS MCH (RBC) [Entitic mass] 30.4 pg Normal 27.0 - 31.2 pg AO Workflow SS MCHC 34.9 G/dL Normal 33.0 - 37.0 G/dL AO Workflow SS MCV (RBC) [Entitic vol] 87.0 fL Normal 80.0 - 94.0 fL AO Workflow SS Monocyte, Absolute 0.6 103/mcL Normal 0.2 - 1.0 10^3/mcL AO Workflow SS Monocytes/100 WBC (Bld) 9.9 % Normal 1.7 - 13.0 % AO Workflow SS Neutrophil, Absolute 3.2 103/mcL Normal 2.9 - 6 .2 10^3/mcL AO Workflow SS Neutrophils/100 WBC (Bld) 52.4 % Normal 37.0 - 80.0 % AO Workflow SS Platelet mean volume (Bld) [Entitic vol] 8.4 fL Normal 7.4 - 10.4 fL AO Workflow SS Platelets (Bld) [#/Vol] 255 103/mcL Normal 130 - 400 10^3/mcL AO Workflow SS Potassium [Moles/Vol] 4.2 mmol/L Normal 3.5 - 5.1 mmol/L AO ADM SS Protein [Mass/Vol] 6.4 G/dL Normal 6.4 - 8.2 G/dL AO ADM SS RBC (Bld) [#/Vol] 4.68 106/mcL Normal 4.20 - 5.4 0 10^6/mcL AO Workflow SS Sodium [Moles/Vol] 142 mmol/L Normal 136 - 145 mmol/L AO ADM SS TSH Qn 3.29 m[IU]/L Normal 0.36 - 3.74 mcIU/mL AO ADM SS Urea nitrogen [Mass/Vol] 9 mg/dL Normal 7 - 18 mg/dL AO ADM SS Urea nitrogen/Creatinine [Mass ratio] 11 ratio Normal 7 - 27 ratio AO ADM SS WBC (Bld) [#/Vol] 6.1 103/mcL Normal 4.6 - 10.8 10^3/mcL AO Workflow SS LABORATORYOrdered By: Laura Ramsey on 03-04-2024 Cholesterol [Mass/Vol] 169 mg/dL Normal 0 - 200 mg/dL AO ADM SS Comment on above: Interpretive Data: C holesterol Reference Interval: Less than 200 Desirable 200-239 Borderline high risk 240 and above High risk Cholesterol in HDL [Mass/Vol] 34 mg/dL Low 40 - 60 mg/dL AO ADM SS Cholesterol in LDL [Mass/Vol] 94 mg/dL Normal 0 - 130 mg/dL AO ADM SS Triglyceride [Mass/Vol] 207 mg/dL High 0 - 150 mg/dL AO ADM SS Comment on above: Interpretive Data: T riglyceride Reference Interval: Less than 150 Normal 150-199 Borderline high risk 200-499 High risk 500 or higher Very high risk LIPon 03-04-2024 Lipase Level 34 U/L Normal 16-77 [facility] ([place]) Comment on above: Performed By: #### F T4, LIP, ANEU, TSH, GFR, ADIFF, CMP, CBC, A1C, LIPID ####[address] [place], [place] [address] LIPIDon 03-04-2024 Cholesterol [Mass/Vol] 169 mg/dL Normal 0-200 [facility] ([place]) Comment on above: Result Comment: Chol esterol Reference Interval: Less than 200 Desirable 200-239 Borderline high risk 240 and above High risk Performed By: #### F T4, LIP, ANEU, TSH, GFR, ADIFF, CMP, CBC, A1C, LIPID ####[address] [place], [place] [address] Cholesterol in HDL [Mass/Vol] 34 mg/dL Low 40-60 [facility] ([place]) Comment on above: Performed By: #### F T4, LIP, ANEU, TSH, GFR, ADIFF, CMP, CBC, A1C, LIPID ####[facility] [place], [place] [address] Cholesterol in LDL [Mass/Vol] 94 mg/dL Normal 0-130 [facility] ([place]) Comment on above: Performed By: #### F T4, LIP, ANEU, TSH, GFR, ADIFF, CMP, CBC, A1C, LIPID ####[address] [place], [place] [address] Triglyceride [Mass/Vol] 207 mg/dL High 0-150 [facility] ([place]) Comment on above: Result Comment: Trig lyceride Reference Interval: Less than 150 Normal 150-199 Borderline high risk 200-499 High risk 500 or higher Very high risk Performed By: #### F T4, LIP, ANEU, TSH, GFR, ADIFF, CMP, CBC, A1C, LIPID ####[address] [place], [place] [address] TSHon 03-04-2024 TSH Qn 3.29 m[IU]/L Normal 0.36-3.74 [facility] ([place]) Comment on above: Performed By: #### F T4, LIP, ANEU, TSH, GFR, ADIFF, CMP, CBC, A1C, LIPID ####[id number] [place], [place] [address] MA MAMMOGRAM SCREENING BILAT ERAL W/TOMOon 02-06-2024 MA MAMMOGRAM SCREENING BILATERAL W/[place] ORIGINAL FROM: [place] [address] PROCEDURE FOR: NIMESH ALCAZAR [address] [place] [address] Home: PID#: [id number] Exam#: [id number] : 1970 Age: 53 TO: KATHI SEARS APRN [place] [address] Fax: NO FAX EXAMINATION: SCREENING DIGITAL BILATERAL MAMMOGRAM WITH TOMOSYNTHESIS, 02/05/2024 9:07 am TECHNIQUE: Screening mammography of the bilateral breasts was performed with tomosynthesis. 2D standard and 3D tomosynthesis combination imaging performed through both breasts in the MLO and CC projection. Computer aided detection was utilized in the interpretation of this exam. COMPARISON: July 27, 2021, October 02, 2017, December 10, 2014 HISTORY: Breast cancer screening. FINDINGS: BREAST DENSITY: Scattered fibroglandular tissue There is no suspicious mass, architectural distortion or microcalcification. Fibroglandular pattern is stable. IMPRESSION: No mammographic evidence of malignancy. Continued screening with annual mammograms is recommended. Krystal Fernando risk calculations, generated with the history provided, report this patient's 10 year risk and lifetime risk for developing breast cancer at 1% and 3.7%, respectively. Based on this assessment tool, if the patient's calculated lifetime risk is below 20%, then the patient is considered at average risk for developing breast cancer. If the patient's calculated lifetime risk is at or above 20%, then the patient is considered high risk for developing breast cancer and may be a candidate for supplemental breast MRI screening in addition to annual mammographic screening per the [employer]. BIRADS: MAMMOGRAM BI-RADS: 1: Negative RECALL: 1 year screening RECALL TYPE: mammo LETTER SENT: Normal BI-RADS 1 and 2 Interpreted by: Mickie Hines Preliminary Report By: Mickie Hines Electronically signed By Mickie Hines Dictated Date: 02/06/2024 6:55:35 AM Prelim Date: 02/06/2024 7:00:15 AM Sign Date: 02/06/2024 7:00:15 AM Ordering Provider: KATHI SEARS copy to: POLY LEYVA M.D. [facility], ph: [phone] [place] Skimmer: ADE BRAGG (Tierney)(M) letter sent: Normal BI-RADS 1 and 2 Mammogram BI-RADS: 1 Negative Normal [facility] ([place]) Marissa 12-12-2023 U Creatinine 66.2 mg/dL Normal 28.0-117.0 [facility] ([place]) Comment on above: Performed By: #### M ALBR ####[address] [place], [place] [address] U Microalb 150 mcg/dL Normal [facility] ([place]) Comment on above: Performed By: #### M ALBR ####[address] [place], [place] [address] U Ratio Alb/Cre 2 mcg/mg Normal 0-30 [facility] ([place]) Comment on above: Performed By: #### M ALBR ####[address] [place], [place] [address] .GFRon 12-04-2023 GFR 99 ml/min/1.73sqm Normal [facility] ([place]) Comment on above: Result Comment: GFR Population mean for , Non- Americans Ages 20-29 = 116 mL/min/1.73 sq.m. Ages 30-39 = 107 mL/min/1.73 sq.m. Ages 40-49 = 99 mL/min/1.73 sq.m. Ages 50-59 = 93 mL/min/1.73 sq.m. Ages 60-69 = 85 mL/min/1.73 sq.m. Ages 70+ = 75 mL/min/1.73 sq.m. Chronic Kidney Disease: Less than 60 mL/min/1.73 square meters End Stage Renal Disease: Less than 15 mL/min/1.73 square meters Performed By: #### A 1C, CMP, GFR ####[address] [place], [place] [address] GFR Non- 82 ml/min/1.73sqm Normal [facility] ([place]) Comment on above: Result Comment: GFR Population mean for , Non- Americans Ages 20-29 = 116 mL/min/1.73 sq.m. Ages 30-39 = 107 mL/min/1.73 sq.m. Ages 40-49 = 99 mL/min/1.73 sq.m. Ages 50-59 = 93 mL/min/1.73 sq.m. Ages 60-69 = 85 mL/min/1.73 sq.m. Ages 70+ = 75 mL/min/1.73 sq.m. Chronic Kidney Disease: Less than 60 mL/min/1.73 square meters End Stage Renal Disease: Less than 15 mL/min/1.73 square meters Performed By: #### A 1C, CMP, GFR ####[address] [place], [place] [address] A1Con 12-04-2023 HbA1c (Bld) [Mass fraction] 8.3 % High 4.3-6.4 [facility] ([place]) Comment on above: Performed By: #### A 1C, CMP, GFR ####[address] [place], [place] [address] CMPon 12-04-2023 Albumin Level 3.1 G/dL Low 3.5-5.0 [facility] ([place]) Comment on above: Performed By: #### A Shalini, CMP, GFR ####[address] [place], [place] [address] Albumin/Globulin [Mass ratio] 0.9 {ratio} Low 1.1-2.5 [facility] ([place]) Comment on above: Performed By: #### Ignacio Loya, CMP, GFR ####[address] [place], [place] [address] ALP [Catalytic activity/Vol] 74 U/L Normal 40-135 [facility] ([place]) Comment on above: Performed By: #### A Shalini, CMP, GFR ####[address] [place], [place] [address] ALT [Catalytic activity/Vol] 34 U/L Normal 14-59 [facility] ([place]) Comment on above: Performed By: #### Ignacio Loya, CMP, GFR ####[address] [place], [place] [address] AST [Catalytic activity/Vol] 20 U/L Normal 10-40 [facility] ([place]) Comment on above: Performed By: #### Ignacio Loya, CMP, GFR ####[address] [place], [place] [address] Bili Total 0.5 mg/dL Normal 0.2-1.0 [facility] ([place]) Comment on above: Result Comment: Use of this assay is not recommended for patients undergoing treatment with eltrombopag due to the potential for falsely elevated results. Performed By: #### Ignacio 1C, CMP, GFR ####[address] [place], [place] [address] BUN/Creatinine Ratio 18 ratio Normal 7-27 [facility] ([place]) Comment on above: Performed By: #### A Shalini, CMP, GFR ####[address] [place], [place] [address] Calcium [Mass/Vol] 8.9 mg/dL Normal 8.4-10.2 [facility] ([place]) Comment on above: Performed By: #### A Shalini, CMP, GFR ####[address] [place], [place] [address] Chloride [Moles/Vol] 101 mmol/L Normal 98-107 [facility] ([place]) Comment on above: Performed By: #### A Shalini, CMP, GFR ####[address] [place], [place] [address] CO2 [Moles/Vol] 28 mmol/L Normal 22-29 [facility] ([place]) Comment on above: Performed By: #### A Shalini, CMP, GFR ####[address] [place], [place] [address] Creatinine [Mass/Vol] 0.74 mg/dL Normal 0.55-1.02 [facility] ([place]) Comment on above: Performed By: #### Ignacio Loya, CMP, GFR ####[address] [place], [place] [address] Electrolyte Balance 10.0 mEq/L Normal 4.0-15.0 [facility] ([place]) Comment on above: Performed By: #### Ignacio Loya, CMP, GFR ####[address] [place], [place] [address] Globulin 3.6 G/dL Normal [facility] ([place]) Comment on above: Performed By: #### Ignacio Loya, CMP, GFR ####[address] [place], [place] [address] Glucose [Mass/Vol] 176 mg/dL High 70-105 [facility] ([place]) Comment on above: Performed By: #### Ignacio Loya, CMP, GFR ####[address] [place], [place] [address] Potassium [Moles/Vol] 4.7 mmol/L Normal 3.5-5.1 [facility] ([place]) Comment on above: Performed By: #### A 1C, CMP, GFR ####[id number] [place], [place] [address] Sodium [Moles/Vol] 139 mmol/L Normal 136-145 [facility] ([place]) Comment on above: Performed By: #### A 1C, CMP, GFR ####[address] [place], [place] [address] Total Protein 6.7 G/dL Normal 6.4-8.2 [facility] ([place]) Comment on above: Performed By: #### Ignacio 1C, CMP, GFR ####[address] [place], [place] [address] Urea nitrogen [Mass/Vol] 13 mg/dL Normal 7-18 [facility] ([place]) Comment on above: Performed By: #### Ignacio 1C, CMP, GFR ####[address] [place], [place] [address] LABORATORYOrdered By: SYSTEM SYSTEM on 12-04-2023 Albumin BCP dye [Mass/Vol] 3.1 G/dL Low 3.5 - 5.0 G/dL AO ADM SS Albumin/Globulin [Mass ratio] 0.9 {ratio} Low 1.1 - 2.5 ratio AO ADM SS ALP [Catalytic activity/Vol] 74 U/L Normal 40 - 135 U/L AO ADM SS ALT With P-5'-P [Catalytic activity/Vol] 34 U/L Normal 14 - 59 U/L AO ADM SS AST With P-5'-P [Catalytic activity/Vol] 20 U/L Normal 10 - 40 U/L AO ADM SS Bilirubin [Mass/Vol] 0.5 mg/dL Normal 0.2 - 1 .0 mg/dL AO ADM SS Comment on above: Interpretive Data: U se of this assay is not recommended for patients undergoing treatment with eltrombopag due to the potential for falsely elevated results. Calcium [Mass/Vol] 8.9 mg/dL Normal 8.4 - 10. 2 mg/dL AO ADM SS Chloride [Moles/Vol] 101 mmol/L Normal 98 - 10 7 mmol/L AO ADM SS CO2 [Moles/Vol] 28 mmol/L Normal 22 - 29 mmol/L AO ADM SS Creatinine [Mass/Vol] 0.74 mg/dL Normal 0.55 - 1.02 mg/dL AO ADM SS Electrolyte Balance 10.0 mEq/L Normal 4.0 - 15 .0 mEq/L AO ADM SS GFR/1.73 sq M.predicted among blacks MDRD (S/P/Bld) [Vol rate/Area] 99 ml/min/1.73sqm Invalid Interpretation Code AO Chemistry S Comment on above: Interpretive Data: GFR Population mean for , Non- Americans Ages 20-29 = 116 mL/min/1.73 sq.m. Ages 30-39 = 107 mL/min/1.73 sq.m. Ages 40-49 = 99 mL/min/1.73 sq.m. Ages 50-59 = 93 mL/min/1.73 sq.m. Ages 60-69 = 85 mL/min/1.73 sq.m. Ages 70+ = 75 mL/min/1.73 sq.m. Chronic Kidney Disease: Less than 60 mL/min/1.73 square meters End Stage Renal Disease: Less than 15 mL/min/1.73 square meters GFR/1.73 sq M.predicted among non-blacks MDRD (S/P/Bld) [Vol rate/Area] 82 ml/min/1.73sqm Invalid Interpretation Code AO Chemistry S Comment on above: Interpretive Data: GFR Population mean for , Non- Americans Ages 20-29 = 116 mL/min/1.73 sq.m. Ages 30-39 = 107 mL/min/1.73 sq.m. Ages 40-49 = 99 mL/min/1.73 sq.m. Ages 50-59 = 93 mL/min/1.73 sq.m. Ages 60-69 = 85 mL/min/1.73 sq.m. Ages 70+ = 75 mL/min/1.73 sq.m. Chronic Kidney Disease: Less than 60 mL/min/1.73 square meters End Stage Renal Disease: Less than 15 mL/min/1.73 square meters Globulin 3.6 G/dL Invalid Interpretation Code AO ADM SS Glucose [Mass/Vol] 176 mg/dL High 70 - 105 mg/dL AO ADM SS HbA1c (Bld) [Mass fraction] 8.3 % High 4.3 - 6.4 % AO ADM SS Potassium [Moles/Vol] 4.7 mmol/L Normal 3.5 - 5.1 mmol/L AO ADM SS Protein [Mass/Vol] 6.7 G/dL Normal 6.4 - 8.2 G/dL AO ADM SS Sodium [Moles/Vol] 139 mmol/L Normal 136 - 145 mmol/L AO ADM SS Urea nitrogen [Mass/Vol] 13 mg/dL Normal 7 - 18 mg/dL AO ADM SS Urea nitrogen/Creatinine [Mass ratio] 18 ratio Normal 7 - 27 ratio AO ADM SS LABORATORYOrdered By: [employer] SYSTEM on 07-04-2023 Natriuretic peptide.B prohormone N-Terminal [Mass/Vol] 118 pg/mL Invalid Interpretation Code 0 - 125 pg/mL AO ADM SS Comment on above: Interpretive Data: N T-proBNP results of less than 300 pg/mL effectively rules out acute congestive heart failure with 99% negative predictive value. Uric Acid Lvl 3.3 mg/dL Invalid Interpretation Code 2.6 - 6.2 mg/dL AO ADM SS PBNPon 07-04-2023 Natriuretic peptide B (Bld) [Mass/Vol] 118 pg/mL Normal 0-125 [facility] ([place]) Comment on above: Result Comment: NT-p roBNP results of less than 300 pg/mL effectively rules out acute congestive heart failure with 99% negative predictive value. Performed By: #### U CARLA GUTIÉRREZ ####[place] [address] URICon 07-04-2023 Uric Acid Lvl 3.3 mg/dL Normal 2.6-6.2 [facility] ([place]) Comment on above: Performed By: #### U DIGNA GUTIÉRREZNP ####[place] [address] LABORATORYOrdered By: [employer] SYSTEM on 03-01-2023 Albumin BCP dye [Mass/Vol] 3.5 G/dL Invalid Interpretation Code 3.5 - 5.0 G/dL AO ADM SS Albumin/Globulin [Mass ratio] 1.1 {ratio} Invalid Interpretation Code 1.1 - 2.5 ratio AO ADM SS ALP [Catalytic activity/Vol] 68 U/L Invalid Interpretation Code 40 - 135 U/L AO ADM SS ALT With P-5'-P [Catalytic activity/Vol] 29 U/L Invalid Interpretation Code 14 - 59 U/L AO ADM SS AST With P-5'-P [Catalytic activity/Vol] 16 U/L Invalid Interpretation Code 10 - 40 U/L AO ADM SS Bilirubin [Mass/Vol] 0.4 mg/dL Invalid Interpretation Code 0.2 - 1.0 mg/dL AO ADM SS Calcium [Mass/Vol] 9.3 mg/dL Invalid Interpretation Code 8.4 - 10.2 mg/dL AO ADM SS Chloride [Moles/Vol] 101 mmol/L Invalid Interpretation Code 98 - 107 mmol/L AO ADM SS CO2 [Moles/Vol] 26 mmol/L Invalid Interpretation Code 22 - 29 mmol/L AO ADM SS Creatinine [Mass/Vol] 0.87 mg/dL Invalid Interpretation Code 0.55 - 1.02 mg/dL AO ADM SS Electrolyte Balance 10.0 mEq/L Invalid Interpretation Code 4.0 - 15.0 mEq/L AO ADM SS Free T4 [Mass/Vol] 1.02 ng/dL Invalid Interpretation Code 0.76 - 1.46 ng/dL AO ADM SS GFR/1.73 sq M.predicted among blacks MDRD (S/P/Bld) [Vol rate/Area] 83 ml/min/1.73sqm Invalid Interpretation Code AO Chemistry S GFR/1.73 sq M.predicted among non-blacks MDRD (S/P/Bld) [Vol rate/Area] 68 ml/min/1.73sqm Invalid Interpretation Code AO Chemistry S Globulin 3.2 G/dL Invalid Interpretation Code AO ADM SS Glucose [Mass/Vol] 149 mg/dL Invalid Interpretation Code 70 - 105 mg/dL AO ADM SS HbA1c (Bld) [Mass fraction] 7.2 % Invalid Interpretation Code 4.3 - 6.4 % AO ADM SS Potassium [Moles/Vol] 4.5 mmol/L Invalid Interpretation Code 3.5 - 5.1 mmol/L AO ADM SS Protein [Mass/Vol] 6.7 G/dL Invalid Interpretation Code 6.4 - 8.2 G/dL AO ADM SS Sodium [Moles/Vol] 137 mmol/L Invalid Interpretation Code 136 - 145 mmol/L AO ADM SS TSH Qn 3.98 m[IU]/L Invalid Interpretation Code 0.36 - 3.74 mcIU/mL AO ADM SS Urea nitrogen [Mass/Vol] 10 mg/dL Invalid Interpretation Code 7 - 18 mg/dL AO ADM SS Urea nitrogen/Creatinine [Mass ratio] 11 ratio Invalid Interpretation Code 7 - 27 ratio AO ADM SS LABORATORYOrdered By: Sulma Conteh on 03-01-2023 Cholesterol [Mass/Vol] 208 mg/dL Invalid Interpretation Code 0 - 200 mg/dL AO ADM SS Cholesterol in HDL [Mass/Vol] 41 mg/dL Invalid Interpretation Code 40 - 60 mg/dL AO ADM SS Cholesterol in LDL [Mass/Vol] 123 mg/dL Invalid Interpretation Code 0 - 130 mg/dL AO ADM SS Triglyceride [Mass/Vol] 219 mg/dL Invalid Interpretation Code 0 - 150 mg/dL AO ADM SS LABORATORYOrdered By: [employer] SYSTEM on 11-01-2022 Albumin BCP dye [Mass/Vol] 3.4 G/dL Invalid Interpretation Code 3.5 - 5.0 G/dL AO ADM SS Albumin/Globulin [Mass ratio] 0.9 {ratio} Invalid Interpretation Code 1.1 - 2.5 ratio AO ADM SS ALP [Catalytic activity/Vol] 70 U/L Invalid Interpretation Code 40 - 135 U/L AO ADM SS ALT With P-5'-P [Catalytic activity/Vol] 24 U/L Invalid Interpretation Code 14 - 59 U/L AO ADM SS AST With P-5'-P [Catalytic activity/Vol] 14 U/L Invalid Interpretation Code 10 - 40 U/L AO ADM SS Bilirubin [Mass/Vol] 0.4 mg/dL Invalid Interpretation Code 0.2 - 1.0 mg/dL AO ADM SS Calcium [Mass/Vol] 9.1 mg/dL Invalid Interpretation Code 8.4 - 10.2 mg/dL AO ADM SS Chloride [Moles/Vol] 102 mmol/L Invalid Interpretation Code 98 - 107 mmol/L AO ADM SS CO2 [Moles/Vol] 28 mmol/L Invalid Interpretation Code 22 - 29 mmol/L AO ADM SS Creatinine [Mass/Vol] 0.81 mg/dL Invalid Interpretation Code 0.55 - 1.02 mg/dL AO ADM SS Electrolyte Balance 11.0 mEq/L Invalid Interpretation Code 4.0 - 15.0 mEq/L AO ADM SS GFR 90 ml/min/1.73sqm Invalid Interpretation Code AO Chemistry S GFR Non- 74 ml/min/1.73sqm Invalid Interpretation Code AO Chemistry S Globulin 3.8 G/dL Invalid Interpretation Code AO ADM SS Glucose [Mass/Vol] 150 mg/dL Invalid Interpretation Code 70 - 105 mg/dL AO ADM SS HbA1c (Bld) [Mass fraction] 6.4 % Invalid Interpretation Code 4.3 - 6.4 % AO ADM SS Potassium [Moles/Vol] 4.5 mmol/L Invalid Interpretation Code 3.5 - 5.1 mmol/L AO ADM SS Protein [Mass/Vol] 7.2 G/dL Invalid Interpretation Code 6.4 - 8.2 G/dL AO ADM SS Sodium [Moles/Vol] 141 mmol/L Invalid Interpretation Code 136 - 145 mmol/L AO ADM SS Urea nitrogen [Mass/Vol] 13 mg/dL Invalid Interpretation Code 7 - 18 mg/dL AO ADM SS Urea nitrogen/Creatinine [Mass ratio] 16 ratio Invalid Interpretation Code ratio AO ADM SS LABORATORYOrdered By: Glendy Rondon on 11-01-2022 Basophil, Absolute 0.0 103/mcL Invalid Interpretation Code 0.0 - 0.2 10^3/mcL AO Workflow SS Basophils/100 WBC (Bld) 0.5 % Invalid Interpretation Code 0.0 - 2.5 % AO Workflow SS Eosinophil, Absolute 0.1 103/mcL Invalid Interpretation Code 0.0 - 0.4 10^3/mcL AO Workflow SS Eosinophils/100 WBC (Bld) 1.9 % Invalid Interpretation Code 0.0 - 7.0 % AO Workflow SS Erythrocyte distribution width (RBC) [Ratio] 13.3 % Invalid Interpretation Code 11.5 - 14.5 % AO Workflow SS Hematocrit (Bld) [Volume fraction] 44.5 % Invalid Interpretation Code 37.0 - 47.0 % AO Workflow SS Hemoglobin (Bld) [Mass/Vol] 15.2 G/dL Invalid Interpretation Code 12.0 - 16.0 G/dL AO Workflow SS Lymphocyte, Absolute 2.8 103/mcL Invalid Interpretation Code 0.8 - 3.9 10^3/mcL AO Workflow SS Lymphocytes/100 WBC (Bld) 38.1 % Invalid Interpretation Code 10.0 - 50.0 % AO Workflow SS MCH (RBC) [Entitic mass] 29.6 pg Invalid Interpretation Code 27.0 - 31.2 pg AO Workflow SS MCHC 34.3 G/dL Invalid Interpretation Code 33.0 - 37.0 G/dL AO Workflow SS MCV (RBC) [Entitic vol] 86.5 fL Invalid Interpretation Code 80.0 - 94.0 fL AO Workflow SS Monocyte, Absolute 0.6 103/mcL Invalid Interpretation Code 0.2 - 1.0 10^3/mcL AO Workflow SS Monocytes/100 WBC (Bld) 8.5 % Invalid Interpretation Code 1.7 - 13.0 % AO Workflow SS Neutrophil, Absolute 3.7 103/mcL Invalid Interpretation Code 2.9 - 6.2 10^3/mcL AO Workflow SS Neutrophils/100 WBC (Bld) 51.0 % Invalid Interpretation Code 37.0 - 80.0 % AO Workflow SS Platelet mean volume (Bld) [Entitic vol] 8.4 fL Invalid Interpretation Code 7.4 - 10.4 fL AO Workflow SS Platelets (Bld) [#/Vol] 276 103/mcL Invalid Interpretation Code 130 - 400 10^3/mcL AO Workflow SS RBC (Bld) [#/Vol] 5.14 106/mcL Invalid Interpretation Code 4.20 - 5.40 10^6/mcL AO Workflow SS WBC (Bld) [#/Vol] 7.3 103/mcL Invalid Interpretation Code 4.6 - 10.8 10^3/mcL AO Workflow SS LABORATORYOrdered By: Guillermina Ibarra on 11-01-2022 Cholesterol [Mass/Vol] 218 mg/dL Invalid Interpretation Code 0 - 200 mg/dL AO ADM SS Cholesterol in HDL [Mass/Vol] 42 mg/dL Invalid Interpretation Code 40 - 60 mg/dL AO ADM SS Cholesterol in LDL [Mass/Vol] 139 mg/dL Invalid Interpretation Code 0 - 130 mg/dL AO ADM SS Triglyceride [Mass/Vol] 184 mg/dL Invalid Interpretation Code 0 - 150 mg/dL AO ADM SS MR KNEE WO RT 10-14-2022 MR KNEE WO RT [place] [address] Patient: NIMESH ALCAZAR Phone#: : [phone] Age: 51 Gender: F Pt. Type: Out Account: [id number] Location: Ordering: [facility] Exam Date: 10/14/2022/8:05 Family Phys: Charge Code: [id number] Physician: [place] Order #: [id number] Dose#: PROCEDURE: MRI KNEE RT WITHOUT CONTRAST COMPARISON: None. INDICATIONS: Sprain. TECHNIQUE: A complete multi-planar MRI was performed. FINDINGS: MEDIAL COMPARTMENT MEDIAL MENISCUS: There is degeneration of the medial meniscus. The meniscus is mildly extruded. HYALINE CARTILAGE: There is irregular thinning of the articular cartilage. BONES: Normal. No marrow pathology, fracture, or significant arthropathy. MCL AND MEDIAL CAPSULE: Posterior medial capsule is thickened and increased in signal consistent with tear. LATERAL COMPARTMENT LATERAL MENISCUS: Anterior lateral meniscal root tear. HYALINE CARTILAGE: Small focus of abnormal signal in the lateral tibial plateau articular cartilage consistent with small tear. BONES: Normal. No marrow pathology, fracture, or significant arthropathy. LCL/POSTEROLAT. COMPLEX: Normal lateral collateral ligament, fascicles, lateral capsule and ligaments. ACL: Normal appearing ligament. PCL: Normal appearing ligament. MENISCOFEMORAL: Normal meniscofemoral ligaments. PATELLOFEMORAL: There is mild narrowing of the lateral patellofemoral joint. EFFUSION: None. No synovitis or loose bodies. OTHER: Negative. CONCLUSION: 1. Degeneration and extrusion of the medial meniscus. 2. Lateral tibial articular cartilage tear. 3. Anterior lateral meniscal root tear. [place] [address] Patient: NIMESH ALCAZAR Phone#: : [phone] Age: 51 Gender: F Pt. Type: Out Account: [id number] Location: Ordering: [facility] Exam Date: 10/14/2022/8:05 Family Phys: Charge Code: [id number] Physician: [place] Order #: [id number] Dose#: Dictated by: Ronna Clark MD on 10/14/2022 at 15:37 Approved by: Ronna Clark MD on 10/14/2022 at 16:08 Normal [facility] LABORATORYOrdered By: Guillermina Ibarra on 05-02-2022 Albumin BCP dye [Mass/Vol] 3.8 G/dL Invalid Interpretation Code 3.5 - 5.0 G/dL AO ADM SS Albumin/Globulin [Mass ratio] 1.2 {ratio} Invalid Interpretation Code 1.1 - 2.5 ratio AO ADM SS ALP [Catalytic activity/Vol] 81 U/L Invalid Interpretation Code 40 - 135 U/L AO ADM SS ALT With P-5'-P [Catalytic activity/Vol] 28 U/L Invalid Interpretation Code 14 - 59 U/L AO ADM SS AST With P-5'-P [Catalytic activity/Vol] 17 U/L Invalid Interpretation Code 10 - 40 U/L AO ADM SS Bilirubin [Mass/Vol] 0.3 mg/dL Invalid Interpretation Code 0.2 - 1.0 mg/dL AO ADM SS Calcium [Mass/Vol] 9.1 mg/dL Invalid Interpretation Code 8.4 - 10.2 mg/dL AO ADM SS Chloride [Moles/Vol] 99 mmol/L Invalid Interpretation Code 98 - 107 mmol/L AO ADM SS CO2 [Moles/Vol] 29 mmol/L Invalid Interpretation Code 22 - 29 mmol/L AO ADM SS Creatinine [Mass/Vol] 0.89 mg/dL Invalid Interpretation Code 0.55 - 1.02 mg/dL AO ADM SS Electrolyte Balance 10.0 mEq/L Invalid Interpretation Code 4.0 - 15.0 mEq/L AO ADM SS Globulin 3.3 G/dL Invalid Interpretation Code AO ADM SS Glucose [Mass/Vol] 139 mg/dL Invalid Interpretation Code 70 - 105 mg/dL AO ADM SS Potassium [Moles/Vol] 4.3 mmol/L Invalid Interpretation Code 3.5 - 5.1 mmol/L AO ADM SS Protein [Mass/Vol] 7.1 G/dL Invalid Interpretation Code 6.4 - 8.2 G/dL AO ADM SS Sodium [Moles/Vol] 138 mmol/L Invalid Interpretation Code 136 - 145 mmol/L AO ADM SS Urea nitrogen [Mass/Vol] 9 mg/dL Invalid Interpretation Code 7 - 18 mg/dL AO ADM SS Urea nitrogen/Creatinine [Mass ratio] 10 ratio Invalid Interpretation Code 7 - 27 ratio AO ADM SS LABORATORYOrdered By: SYSTEM SYSTEM on 05-02-2022 GFR 81 ml/min/1.73sqm Invalid Interpretation Code AO Chemistry S GFR Non- 67 ml/min/1.73sqm Invalid Interpretation Code AO Chemistry S LABORATORYOrdered By: Laura Ramsey on 05-02-2022 HbA1c (Bld) [Mass fraction] 6.6 % Invalid Interpretation Code 4.3 - 6.4 % AO ADM SS LABORATORYOrdered By: Jt Warren on 11-02-2021 Calcium [Mass/Vol] 9.1 mg/dL Invalid Interpretation Code 8.4 - 10.2 mg/dL AO ADM SS Chloride [Moles/Vol] 99 mmol/L Invalid Interpretation Code 98 - 107 mmol/L AO ADM SS CO2 [Moles/Vol] 28 mmol/L Invalid Interpretation Code 22 - 29 mmol/L AO ADM SS Creatinine [Mass/Vol] 0.81 mg/dL Invalid Interpretation Code 0.55 - 1.02 mg/dL AO ADM SS Electrolyte Balance 10.0 mEq/L Invalid Interpretation Code AO ADM SS Glucose [Mass/Vol] 144 mg/dL Invalid Interpretation Code 70 - 105 mg/dL AO ADM SS HbA1c (Bld) [Mass fraction] 6.7 % Invalid Interpretation Code 4.3 - 6.4 % AO ADM SS Potassium [Moles/Vol] 4.3 mmol/L Invalid Interpretation Code 3.5 - 5.1 mmol/L AO ADM SS Sodium [Moles/Vol] 137 mmol/L Invalid Interpretation Code 136 - 145 mmol/L AO ADM SS Urea nitrogen [Mass/Vol] 12 mg/dL Invalid Interpretation Code 7 - 18 mg/dL AO ADM SS Urea nitrogen/Creatinine [Mass ratio] 15 ratio Invalid Interpretation Code 7 - 27 ratio AO ADM SS LABORATORYOrdered By: SYSTEM SYSTEM on 11-02-2021 GFR 90 ml/min/1.73sqm Invalid Interpretation Code AO Chemistry S GFR Non- 74 ml/min/1.73sqm Invalid Interpretation Code AO Chemistry S ANES Ghassan 01-23-2020 ANES POST HNO ID: [id number] Author: Feliciano Giraldo Service: Anesthesiology Author Type: Anesthesiologist Type: Anesthesia PostOp Filed: 01/23/2020 8:37 AM Note Text: POST ANESTHESIA EVALUATION NOTE SERVICE DATE: 01/23/2020 SERVICE TIME: 8:37 AM : 1970 Vitals: 01/23/20 0709 01/23/20 0817 Temp: 36.7 ?C (98.1 ?F) 36.5 ?C (97.7 ?F) 01/23/20 0709 01/23/20 0817 BP: 129/72 140/75 01/23/20 0709 01/23/20 0817 Pulse: 87 89 01/23/20 0709 01/23/20 0817 Resp: 16 18 01/23/20 0709 01/23/20 08 SpO2: 96% 95% Validated Vital Signs: yes POST ANES STATUS: No apparent anesthetic complications. The patient is appropriately hydrated with stable respiratory and cardiovascular status. Patient has safe and adequate airway control. The patient has appropriate pain relief and no significant post operative nausea or vomiting. The patient has achieved baseline mental status. Further assessment by Anesthesia Service: None Other Remarks: SIGNATURE: Feliciano Giraldo MD PATIENT NAME: Nimesh Alcazar DATE: January 23, 2020 TIME: 8:37 AM PAGER/CONTACT #: [phone] [facility] ANES PREOPon 01-23-2020 ANES PREOP HNO ID: [id number] Author: Feliciano Giraldo Service: Anesthesiology Author Type: Anesthesiologist Type: Anesthesia PreOp Filed: 01/23/2020 7:26 AM Note Text: ANESTHESIOLOGY DAY OF SURGERY NOTE SERVICE DATE: 01/23/2020 SERVICE TIME: 7:15 AM : 1970 Procedure(s) (LRB): DACRYOCYSTORHINOSTOMY (Right) Surgeon(s): Henry Scott Estimated body mass index is 31.66 kg/m? as calculated from the following: Height as of this encounter: 162 cm (5' 3.78). Weight as of this encounter: 83.1 kg (183 lb 3.2 oz). Most recent hematocrit and potassium results: No results found for this basename: HCT,HEMATOCRIT,K,POTA SSIUM ANES DOS/PREOP NOTE: Vitals: 01/23/20 0709 BP: 129/72 Pulse: 87 Resp: 16 Temp: 36.7 ?C (98.1 ?F) TempSrc: Temporal Artery SpO2: 96% Weight: 83.1 kg (183 lb 3.2 oz) Height: 162 cm (5' 3.78) ACTIVE PROBLEM LIST Other and Unspecified Hyperlipidemia Fatigue Migraine Mvp (Mitral Valve Prolapse) Hot Flashes Not Due to Menopause Snoring Fibromyalgia Absence of Menstruation Leiomyoma of Uterus, Unspecified Fibroids, Subserous Left Flank Pain Screening Breast Examination Visit for Gynecologic Examination PAST MEDICAL HISTORY Diagnosis Date - Amenorrhea 1997 age 28 after had last baby then hot flashes - Fatigue 04/2010 56 - Fibroids, subserous 09/2010 Endometrium, biopsy - Fragments of weakly proliferative endometrium. - Fibromyalgia 1999 was on savella and lyrica - Impaired glucose tolerance 04/2010 2 hr 152 - menopause transition - Migraine depakote - MVP (mitral valve prolapse) - Other and unspecified hyperlipidemia on simvastatin - Snoring no OSAS 05/19/2010 outside sleep test PAST SURGICAL HISTORY Procedure Laterality Date - DELIVERY ONLY 1991,1992,1997 , low transverse - PAST SURGICAL HISTORY OF 06/[address] Cali at [facility]; 2011 repeat neck surgery FAMILY HISTORY Problem Relation Age of Onset - Hypertension Father CABG neprolithiasis - other (hysterectomy [Other]) Mother thyroid - Hypertension Sister - other (healthy [Other]) Sister - other (healthy [Other]) Brother - other (healthy [Other]) Brother - other (healthy [Other]) Brother - other (healthy [Other]) Daughter - other (healthy [Other]) Daughter - other (healthy [Other]) Son - other (healthy [Other]) Son Social History: Social History Tobacco Use - Smoking status: Never Smoker Substance Use Topics - Alcohol use: No - Drug use: No No current facility-administered medications on file prior to encounter. Current Outpatient Medications on File Prior to Encounter Medication Sig - thymol/chlorophyllin (CHLOROPHYLL ORAL) Take 50 mg by mouth once daily. - divalproex DR (DEPAKOTE) 500 mg EC tablet Take 500 mg by mouth once daily. - furosemide (LASIX) 20 mg tablet Take 20 mg by mouth once daily. - magnesium oxide,aspartate,citr (TRIPLE MAGNESIUM COMPLEX) 400 mg magnesium cap Take by mouth as directed. - meloxicam (MOBIC) 15 mg tablet Take 15 mg by mouth as directed. - montelukast (SINGULAIR) 10 mg tablet Take 10 mg by mouth once daily. - omeprazole (PRILOSEC) 20 mg capsule Take 20 mg by mouth once daily. - Levonorgestrel-Ethiny l Estrad (SRONYX) 0.1mg - 20mcg per tablet Take 1 tablet by mouth as directed. - levothyroxine (SYNTHROID) 50 mcg tablet Take 50 mcg by mouth once daily. - valACYclovir (VALTREX) 1 gram Take 2,000 mg by mouth q 12 HR. - cholecalciferol, vitamin D3, (VITAMIN D3 ORAL) Take 10,000 Units by mouth once daily. - Norethindrone-Eth Estradiol (ORTHO-NOVUM , ,) 1-35 mg-mcg per tablet Take 1 tablet by mouth once daily. for menstrual/hormonal reasons skip last 7 placebo pills take continuously - sumatriptan (IMITREX) 50 mg ORAL tablet Take 1 tablet by mouth as needed. DIRECTED PO FOR MIGRAINE HEADACHE - simvastatin (ZOCOR) 40 mg ORAL tablet Take 1 tablet by mouth daily at bedtime. GENERIC OK - Orlistat 120 mg ORAL capsule Take 120 mg by mouth three times daily with meals. - vitamin b complex(B COMPLEX 1 TAB) one po daily (Patient taking differently: Take by mouth once daily. ) - COENZYME Q10 30 MG CAP ONE PO DAILY ([facility] BRAND ONLY) 50 to 100mg daily (Patient taking differently: Take 50 mg by mouth once daily. ) - CHOLECALCIFEROL (VITAMIN D3) 2,000 UNIT CAP one po daily (Patient taking differently: Take by mouth once daily. ) - CRANBERRY 500 MG CAP Take 1500 mg daily - MULTIVITAMIN TAB Take one(1) tablet daily. - VERAPAMIL 120 MG TAB Take one(1) tablet two(2) times daily. - levocetirizine dihydrochloride(XYZAL 5 MG TAB) Take one(1) tablet daily. - PINDOLOL 5 MG TAB take one in am and two in pm Current Facility-Administered Medications Medication Dose Route Frequency Provider Last Rate Last Dose - NaCl 0.9% 2-10 mL 2-10 mL INTRAVENOUS q 12 H Henry Scott Allergies: ALLERGIES Allergen Reactions - Aged Cheese [Other] Itching - Beans [Other] Itching - Cantaloupe Itching - Cheddar Cheese [Oth* Itching - Chocolate Itching - Clams Itching - Cucumbers [Other] Itching - Dairy Products [Oth* Itching - Eggs [Egg] Itching - Erythromycin (Bulk) GI Upset - Fish Itching - Msg [Other] Itching - Peanuts Itching - Septra [Sulfamethox* Hives - Sourdough [Other] Itching - Strawberries Itching - Sulfa Drugs [Sulfa * Hives - Watermelon Itching DOS EXAM: Adequate NPO Status: Yes Anesthetic Risks, Benefits, Alternatives, Personnel and Consent Discussed: Yes Patient agrees to proceed: Yes Previous Anesthesia: No history of adverse event Airway Assessment: MP 2; Neck ROM: slightly diminished flexion/extension; Airway Evaluation: No significant abnormalities Symptoms of Sleep Apnea: None Dentition: Teeth intact Additional Physical Exam: Lungs: Patient health status unchanged since recent history and physical. See history and physical for exam findings. Cardiac: Patient health status unchanged since recent history and physical. See history and physical for exam findings. Additional Pertinent Findings: N/A Blood Products: Not anticipated for this procedure Anesthetic Plan: MAC poss. GA Anesthetic Monitoring: Standard ASA Monitors Pain Management Plan: Parenteral or Oral ASA Class: 2 Other Medical Problems: None Chronic Beta Victor M medication administered within 24 hours: N/A I have interviewed and examined the patient. I have reviewed the medical record and/or the pre-anesthesia evaluation, pertinent labs, and test results. Significant changes in the patient's condition since the History and Physical, not otherwise documented in primary service progress notes: No This contains updated information obtained within 48 hours of Surgery/Procedure. SIGNATURE: Feliciano Giraldo MD PATIENT NAME: Nimesh Alcazar DATE: January 23, 2020 TIME: 7:15 AM CSN: [id number] [facility] HISTORY PHYSICALon 0 HISTORY PHYSICAL HNO ID: [id number] Author: Henry Scott Service: Ophthalmology Author Type: Physician Type: HANDP Filed: 01/23/2020 7:38 AM Note Text: UPDATED HISTORY AND PHYSICAL EXAMINATION SERVICE DATE: 01/23/2020 SERVICE TIME: 7:37 AM PHYSICAL EXAM MUST BE COMPLETED ON ADMISSION The History and Physical (completed in the past 30 days) has been reviewed and the patient has been examined. The contents accurately reflect the patient's condition with the following additions or revisions since the HANDP was completed. Examination indicates no changes. This HANDP can be found in the scanned documents dated 01/22/2020. SIGNATURE: Henry Scott MD PATIENT NAME: Nimesh Holdenhberger DATE: January 23, 2020 TIME: 7:37 AM PAGER: [facility] OPERATIVE NOon 01-23-2020 OPERATIVE NO HNO ID: [id number] Author: Henry Scott Service: Ophthalmology Author Type: Physician Type: Operative Report Filed: 01/23/2020 8:17 AM Note Text: OPERATIVE/PROCEDURE REPORT LOG ID: [id number] Surgery/Procedure Date: 01/23/2020 INCISION/PROCEDURE START TIME: 7:50 AM INCISION CLOSE/PROCEDURE END TIME: 8:12 AM Surgeon(s)/Procedural ist(s) and Security Engineer(s): Surgeon(s) and Role: * Henry Scott - Primary Procedure(s): Procedure(s) (LRB): DACRYOCYSTORHINOSTOMY (Right) BIOPSY EYELID (Right) Pre-Op/Pre-Procedure Diagnosis: Pre-Op Diagnosis Codes: * Nasolacrimal duct obstruction, acquired, 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 Operative Indication(s): dacrycystitis. Anesthesia: Monitored Anesthesia Care Procedure Details: Patient was brought in the operating room, placed under adequate local anesthesia. The face was prepped and draped in the usual sterile fashion for Right tear duct surgery. A right medial canthal incision was made. Dissection was carried out to the level of the lacrimal fossa. A [place] elevator was used to raise the tissue from the lacrimal fossa which was then infractured. The bony ostium was created using [place] rongeurs. Anterior ethmoidectomy and middle turbinectomy was performed at this time after stripping the nasal mucosa. The lacrimal sac was then entered and the anterior and posterior flaps of the sac were excised. The system was then intubated. The nasal packing was removed from the nose. The stents were guided into the nose using a grooved director. They were secured in the nose over a white rubber bumper. The anastomotic site was then packed with Gelfoam and thrombus. The incision was closed using deep sutures of 4-0 chromic and skin sutures of 7-0 Vicryl. A Steri- Strip was placed over the incision. The lacrimal stent was in good position at the end of the case. The patient was returned to the recovery room in satisfactory condition. Prior to discharge a RLL biopsy Was performed with laci scissors due to a suspicious neoplasm. Estimated Blood Loss: Minimal unless noted here. Specimens: Specimen ID Type Site Comments Sent To Tissue R lower eyelid neoplasm Pathology Routine Implantable Devices: Implant Name Type Inv. Item Serial No. Public Defender Lot No. LRB No. Used SYS MONO-CRWFRD LACRIMAL INTUB - [id number] Implant SYS MONO-CRWFRD LACRIMAL INTUB [id number] RESIDENTIAL OPHTHALMIC Right 1 Drains: None unless noted here. Complications: None. I/primary surgeon/proceduralist performed the entire procedure. SIGNATURE: Henry Scott MD PATIENT NAME: Nimesh Alcazar DATE: January 23, 2020 TIME: 8:15 AM PAGER/CONTACT #: [facility] 01-07-2020 [facility] Patient:Mu Alcazar MRN: Height:5' 3.78(1.62 m) Weight:183 lb 3.2 oz (83.1 kg) Outpatient Medications as of 01/23/20: ibuprofen (ADVIL) 200 mg tablet thymol/chlorophyllin (CHLOROPHYLL ORAL) divalproex DR (DEPAKOTE) 500 mg EC tablet furosemide (LASIX) 20 mg tablet magnesium oxide,aspartate,citr (TRIPLE MAGNESIUM COMPLEX) 400 mg magnesium cap meloxicam (MOBIC) 15 mg tablet montelukast (SINGULAIR) 10 mg tablet omeprazole (PRILOSEC) 20 mg capsule Levonorgestrel-Ethiny l Estrad (SRONYX) 0.1mg - 20mcg per tablet levothyroxine (SYNTHROID) 50 mcg tablet valACYclovir (VALTREX) 1 gram cholecalciferol, vitamin D3, (VITAMIN D3 ORAL) Norethindrone-Eth Estradiol (ORTHO-NOVUM , ,) 1-35 mg-mcg per tablet sumatriptan (IMITREX) 50 mg ORAL tablet simvastatin (ZOCOR) 40 mg ORAL tablet Orlistat 120 mg ORAL capsule vitamin b complex(B COMPLEX 1 TAB) COENZYME Q10 30 MG CAP CHOLECALCIFEROL (VITAMIN D3) 2,000 UNIT CAP CRANBERRY 500 MG CAP MULTIVITAMIN TAB VERAPAMIL 120 MG TAB levocetirizine dihydrochloride(XYZAL 5 MG TAB) PINDOLOL 5 MG TAB Admission/Clinic Administered Medications as of 01/23/20: NaCl 0.9% 2-10 mL lactated ringers infusion lactated ringers infusion Problem List: Other and unspecified hyperlipidemia [E78.5] Fatigue [R53.83] Migraine [G43.909] MVP (mitral valve prolapse) [I34.1] Hot flashes not due to menopause [R23.2] Snoring [R06.83] Fibromyalgia [M79.7] Absence of menstruation [N91.2] Leiomyoma of uterus, unspecified [D25.9] Fibroids, subserous [D25.2] Left flank pain [R10.9] Screening breast examination [Z12.39] Visit for gynecologic examination [Z01.419] Allergies: aged cheese [Other] beans [Other] Cantaloupe cheddar cheese [Other] Chocolate Clams cucumbers [Other] dairy products [Other] Eggs [Egg] Erythromycin (Bulk) Fish MSG [Other] Peanuts Septra [Sulfamethoxazole-Tri methoprim] sourdough [Other] Strawberries Sulfa Drugs [Sulfa (Sulfonamide Antibiotics)] Watermelon Date Verified: 01/23/20 Lab Values No results within the last 30 days for the following basenames: K,HCT No progress notes entered within the past 30 days Normal [place] Vital Signs Date Time Vital Sign Value Performing Clinician Adilene negron 03-19-2025 09:55-0400 Body height 161.3 cm Elham Aguirre MD Work Phone: [facility] 03-19-2025 09:55-0400 Body mass index (BMI) [Ratio] 25.98 kg/m2 Elham Aguirre MD Work Phone: [facility] 03-19-2025 09:55-0400 Body weight 67.59 kg Elham Aguirre MD Work Phone: [facility] 06-10-2023 11:23-0400 Body temperature 97.34 [degF] MIGUEL DUTTA MD [facility] 06-10-2023 11:23-0400 Diastolic Blood Pressure Non-Invasive 98 1 MIGUEL DUTTA MD [facility] 06-10-2023 11:23-0400 Heart rate 85 /min MIGUEL DUTTA MD [facility] 06-10-2023 11:23-0400 Respiratory rate 16 /min MIGUEL DUTTA MD [facility] 06-10-2023 11:23-0400 Systolic Blood Pressure Non-Invasive 155 1 MIGUEL DUTTA MD [facility] Encounters Encounter Date Encounter Type Care Provider Facility Start: 09-24-2025 ambulatory Hayder Ospina Facility :[facility] Start: 09-05-2025 End: 09-05-2025 ambulatory Kathi Sears NP [facility] Start: 07-21-2025 ambulatory Kathi Sears NP Facil ity:[facility] Start: 07-20-2025 End: 07-21-2025 ambulatory Elham Aguirre MD Work Phone: OB/Gynecology Comment on above: Burning sensation in my mouth Start: 07-08-2025 End: 07-08-2025 Refill Elham Aguirre MD Work Phone: OB/Gynecology Comment on above: Refill Request Start: 06-24-2025 End: 06-24-2025 ambulatory KATHI SEARS MONOGRAM MACHINE OPERATOR-BELT MACHINE OPERATOR Facility:[facility] Start: 06-24-2025 End: 06-24-2025 Patient encounter procedure KATHI SEARS MONOGRAM MACHINE OPERATOR-BELT MACHINE OPERATOR [facility] Start: 06-13-2025 End: 06-13-2025 Patient encounter procedure Netta Gonzalez BOOK TRIMMER-C -[facility] Work Phone: Start: 06-13-2025 End: 06-13-2025 ambulatory Kathi Sears BOOK TRIMMER-C Work Phone: -[facility] Start: 05-28-2025 End: 06-01-2025 ambulatory KATHI SEARS MONOGRAM MACHINE OPERATOR-BELT MACHINE OPERATOR Facility:[facility] Start: 05-28-2025 End: 06-01-2025 Outreach Lab KATY HAM MONOGRAM MACHINE OPERATOR-BELT MACHINE OPERATOR [facility] Start: 05-24-2025 End: 05-24-2025 ambulatory KATHI Sixto RENU MONOGRAM MACHINE OPERATOR-BELT MACHINE OPERATOR Facility:[facility] Start: 05-24-2025 End: 05-24-2025 Patient encounter procedure JENNIFER RANDALL DO [facility] Start: 05-06-2025 End: 05-08-2025 ambulatory Elham Aguirre MD Work Phone: OB/Gynecology Comment on above: Medication question Start: 04-18-2025 End: 06-18-2025 Follow-up encounter Bella Rosa MONOGRAM MACHINE OPERATOR.BELT MACHINE OPERATOR Work Phone: OB/Gynecology Start: 04-18-2025 ambulatory ROSEY IBRAHIM Facility: [facility] Start: 04-15-2025 ambulatory ELHAM Gomez ity:[facility] Start: 04-15-2025 End: 04-15-2025 Subsequent hospital visit by physician [facility] Start: 03-25-2025 End: 03-25-2025 ambulatory KATHI SEARS MONOGRAM MACHINE OPERATOR-BELT MACHINE OPERATOR Facility:[facility] Start: 03-25-2025 End: 03-25-2025 Patient encounter procedure KATHI SEARS MONOGRAM MACHINE OPERATOR-BELT MACHINE OPERATOR [facility] Start: 03-19-2025 End: 03-19-2025 Patient encounter procedure Elham Aguirre MD Work Phone: OB/Gynecology Comment on above: Hot flashes not due to menopause (Primary Dx); Urinary incontinence, urge; Encounter for gynecological examination (general) (routine) without abnormal findings; Encounter for screening mammogram for breast cancer Start: 03-19-2025 End: 03-19-2025 Patient encounter status Elham Aguirre MD Work Phone: [facility] Start: 03-19-2025 End: 03-19-2025 ambulatory ELHAM AGUIRRE Facility:[facility] Start: 03-19-2025 Encounter for gynecological examination (general) (routine) without abnormal findings ELHAM AGUIRRE [facility] Start: 01-01-2025 End: 01-05-2025 ambulatory KATHI SEARS MONOGRAM MACHINE OPERATOR-BELT MACHINE OPERATOR Facility:[facility] Start: 01-01-2025 End: 01-05-2025 Outreach Lab KATHI Sixto GREGORYRENU MONOGRAM MACHINE OPERATOR-BELT MACHINE OPERATOR [facility] Start: 12-28-2024 End: 12-28-2024 ambulatory KATHI Sixto SEARS MONOGRAM MACHINE OPERATOR-BELT MACHINE OPERATOR Facility:[facility] Start: 12-28-2024 End: 12-28-2024 Patient encounter procedure KATHI SEARS MONOGRAM MACHINE OPERATOR-BELT MACHINE OPERATOR [facility] Start: 10-11-2024 End: 10-11-2024 ambulatory Kathi Sears BOOK TRIMMER Facility:[facility] Start: 06-10-2024 End: 06-10-[address] ROBER HERRON DO Facility:[facility] Start: 06-10-2024 End: 06-10-2024 Patient encounter procedure KATHI SEARS MONOGRAM MACHINE OPERATOR-BELT MACHINE OPERATOR [facility] Start: 05-01-2024 End: 05-01-[address] DANI LEON MD Facility:[facility] Start: 03-13-2024 End: 03-13-2024 ambulatory KATHI SEARS MONOGRAM MACHINE OPERATOR-BELT MACHINE OPERATOR Facility:[facility] Start: 03-12-2024 End: 03-16-2024 ambulatory POLY LEYVA MD Facility:[facility] Start: 03-12-2024 End: 03-16-2024 Encounter for general adult medical examination without abnormal findings POLY LEYVA MD Facility:[facility] Start: 03-04-2024 End: 03-04-2024 ambulatory KATHI SEARS MONOGRAM MACHINE OPERATOR-BELT MACHINE OPERATOR Facility:[facility] Start: 03-04-2024 End: 03-04-2024 Patient encounter procedure KATHI SEARS MONOGRAM MACHINE OPERATOR-BELT MACHINE OPERATOR [facility] Start: 02-05-2024 End: 02-05-2024 ambulatory KATHI SEARS MONOGRAM MACHINE OPERATOR-BELT MACHINE OPERATOR Facility:[facility] Start: 02-05-2024 End: 02-05-2024 Patient encounter procedure KATHI SEARS MONOGRAM MACHINE OPERATOR-BELT MACHINE OPERATOR [facility] Start: 12-12-2023 ambulatory KATHI GARZA MONOGRAM MACHINE OPERATOR-BELT MACHINE OPERATOR Facility:[facility] Start: 12-04-2023 End: 12-04-2023 ambulatory KATHI SEARS MONOGRAM MACHINE OPERATOR-BELT MACHINE OPERATOR Facility:[facility] Start: 12-04-2023 End: 12-04-2023 Patient encounter procedure KATHI SEARS MONOGRAM MACHINE OPERATOR-BELT MACHINE OPERATOR [facility] Start: 07-04-2023 ambulatory RHEA TRACY MONOGRAM MACHINE OPERATOR-BELT MACHINE OPERATOR Facility:[facility] Start: 07-04-2023 End: 07-04-2023 ambulatory RHEA TRACY MONOGRAM MACHINE OPERATOR-BELT MACHINE OPERATOR Facility:[facility] Start: 07-04-2023 End: 07-04-2023 Patient encounter procedure RHEA TRACY MONOGRAM MACHINE OPERATOR-BELT MACHINE OPERATOR [facility] Start: 06-27-2023 End: 06-27-2023 ambulatory KATY HAM MONOGRAM MACHINE OPERATOR-BELT MACHINE OPERATOR Facility:[facility] Start: 06-10-2023 End: 06-10-2023 Emergency department patient visit MIGUEL DUTTA MD [facility] Start: 03-04-2023 End: 03-04-[address] ALL ZUNIGA MD [facility] Start: 03-01-2023 End: 03-01-2023 Patient encounter procedure KATHI SERAS MONOGRAM MACHINE OPERATOR-BELT MACHINE OPERATOR [facility] Start: 11-01-2022 End: 11-01-2022 Patient encounter procedure KATHI Henson RENU MONOGRAM MACHINE OPERATOR-BELT MACHINE OPERATOR [facility] Start: 10-21-2022 End: 12-02-2022 Physical therapy management SANAZ KITCHEN [facility] Start: 10-14-2022 End: 10-14-2022 ambulatory SANAZ BROWNE [facility] Start: 09-16-2022 End: 09-16-2022 Patient encounter procedure SCOTT GU MONOGRAM MACHINE OPERATOR-BELT MACHINE OPERATOR [facility] Start: 05-02-2022 End: 05-02-2022 Patient encounter procedure ELKE VASQUEZ DO [facility] Start: 11-02-2021 End: 11-02-2021 Patient encounter procedure KATHI Henson RENU MONOGRAM MACHINE OPERATOR-BELT MACHINE OPERATOR [facility] Start: 12-06-2011 End: 03-19-2025 Patient encounter status Elham Aguirre MD Work Phone: [facility] Procedures Date Procedure Procedure Detail Performing Clinician Start: 01-05-2020 Ophthalmic surgery ( qualifier value) KATHI SEARS MONOGRAM MACHINE OPERATOR-BELT MACHINE OPERATOR Start: 11-06-2019 Dacryocystorhinostomy Mu SEARS MONOGRAM MACHINE OPERATOR-BELT MACHINE OPERATOR Start: 06-04-2019 Electrocardiographic monitoring KATHI SEARS MONOGRAM MACHINE OPERATOR-BELT MACHINE OPERATOR Comment on above: NSR Start: 11-06-2018 Excision of lipoma SALVADOR SEARS MONOGRAM MACHINE OPERATOR-BELT MACHINE OPERATOR Comment on above: right leg Start: 06-21-2016 Echocardiography KANE SEARS [place] Comment on above: EF 60% There is a mi ld degree of thickening of th eanterior leaflet of mitral valve with prolapse, but a trace of mitral regurgitation. Start: 09-20-2011 Lumbar puncture KATHI SEARS [place] Comment on above: with cervical myelog yu Start: 04-09-2010 Lipid 1996 panel - S ambrocio or Plasma Elham Aguirre MD Work Phone: Start: 11-06-2009 Disc - unit of produ ct usage (qualifier value) KATHI SEARS [place] Comment on above: cerivcal disc fusion Start: 01-20-2009 Cardiovascular stress testing KATHI SEARS [place] Comment on above: Small fixed anteroap ical defect suggestive of scar versus breast attenuation with no rversible ischemia noted. Normal wall motion with calculated EF 74% Start: 11-06-2003 Carpal tunnel syndro me (disorder) KATHI SEARS MONOGRAM MACHINE OPERATORWorkboard Comment on above: left Start: 11-06-2002 Spinal arthrodesis SALVADOR SEARS [place] Comment on above: C6-7 bone graft from right hip C5 & 6 (X 2 SURGERIE S) Deliveries by chris moore (finding) KATHI SEARS MONOGRAM MACHINE OPERATORWorkboard Comment on above: 1991, 1992, 1997 Vaginal KATHI SEARS MONOGRAM MACHINE OPERATORWorkboard Comment on above: surgery for itching Plan of Treatment Date Care Activity Detail Author Start: 03-12-2027 Screening for malign ant neoplasm of cervix Cervical Cancer Screening [facility] Start: 04-15-2026 Screening for malign ant neoplasm of breast Mammogram Screening [facility] Start: 03-31-2026 End: 03-31-2026 Patient encounter procedure Mammogram Comment on above: Encounter for screen ing mammogram for breast cancer [Z12.31] annual Start: 07-07-2025 Influenza vaccination C [facility] Start: 04-18-2025 End: 04-18-2025 Patient encounter procedure 04/18/2025 1:00 PM EDT Office Visit OB/Gynecology [address] [place] [address] Rosey Ibrahim APRN.BELT MACHINE OPERATOR [address] [place] [address] med question OB/Gynecology Comment on above: med question Start: 03-28-2025 End: 03-28-2025 Patient encounter procedure 03/28/2025 10:50 AM EDT Appointment Mammogram [address] [place] [id number] Encounter for screening mammogram for breast cancer [Z12.31] Mammogram Comment on above: Encounter for screen ing mammogram for breast cancer [Z12.31] Start: 11-26-2024 Screening for malign ant neoplasm of colon [facility] Start: 07-07-2024 Covid-19 Vaccine ( season) Covid-19 Vaccine ( season) [facility] Start: 2019 Pneumococcal Vaccine : 50+ (1 of 1 - PCV) Pneumococcal Vaccine: 50+ (1 of 1 - PCV) [facility] Start: 2019 Shingrix Vaccine (1 of 2) Shingrix Vaccine (1 of 2) [facility] Start: 04-09-2015 Lipid panel Lipid Screening [facility] Start: 2014 Diabetes Screening Diabetes Screenin g [facility] Start: 2014 Screening for malign ant neoplasm of colon [facility] Start: 11-25-2011 Screening for malign ant neoplasm of breast Mammogram Screening [facility] Start: 1988 Hepatitis B Vaccine (1 of 3 - 19+ 3-dose series) Hepatitis B Vaccine (1 of 3 - 19+ 3-dose series) [facility] Start: 1988 Urine microalbumin profile DTaP,Tdap,Td Vaccine (1 - Tdap) [facility] Start: 1987 Anxiety Screening Anxiety Screening [facility] Start: 1987 Depression Screening Depression Scre ening [facility] Start: 1987 Hepatitis C screening Hepatitis C Sc aly [facility] Start: 1987 HIV screening HIV Screening [facility] End: 04-18-2026 DBT Breast - bilateral screening GISELL SCREENING [facility] Radiology Routine 1 Occurrences starting 03/19/2025 until 04/18/2026 [facility] Work Phone: Comment on above: 1 Occurrences starti ng 03/19/2025 until 04/18/2026 DBT Breast - bilater al screening GISELL SCREENING [facility] Radiology Routine 04/15/2025 1:00 PM EDT [facility] Work Phone: Procedure [facility] Payers Date Payer Category Payer Private Health Insurance [id number] 2024 Unknown [id number] 2024 Self-pay 2021 Unknown [id number] 1969 Unknown [id number] 1970 Unknown [id number] 2.16.8 40.1.375552.3.579.2.627 1970 Unknown [id number] 2.16.8 40.1.881970.3.579.2.627 1970 Unknown [id number] 2.16.8 40.1.263620.3.579.2.627 1970 Unknown [id number] 2.16.8 40.1.278914.3.579.2.627 1970 Unknown [id number] 2.16.8 40.1.596875.3.579.2.627 1969 Unknown [id number] 2.16.8 40.1.223212.3.579.2.627 1970 Unknown [id number] 2.16.8 40.1.234928.3.579.2.62 1970 Unknown [id number] .16.8 40.1.690033.3.579.2 1969 Unknown [id number] .16.8 40.1.539324.3.579.2 1969 Unknown [id number] .16.8 40.1.772582.3.579.2 1969 Unknown [id number] .16.8 40.1.672134.3.579.2 1969 Unknown [id number] .16.8 40.1.303934.3.579.2 1969 Unknown [id number] .16. 840.1.527999.3.579.2 1969 Unknown [id number] . 840.1.653231.3.579.2 1970 Unknown [id number] .. 840.1.702403.3.579.2 1969 Unknown [id number] .16.8 40.1.485235.3.579.2 1970 Unknown [id number] .16.8 40.1.119876.3.579.2 1970 Unknown [id number] .16.8 40.1.049824.3.579.262 Unknown [id number] Unknown [id number] .16.8 40.1.599461.3.579.2.462 Unknown [id number] .16.8 40.1.159180.3.579.2.462 Unknown [id number] .16.8 40.1.556815.3.579.2.462 Unknown [id number] 2.16.8 40.1.122841.3.579.2.462 Unknown [id number] .16.8 40.1.831958.3.579.2.462 Social History Date Type Detail Facility Start: 01-22-2020 End: 05-16-2025 Never smoked tobacco (finding) [facility] Start: 1970 Sex Assigned At Female A [facility] Sexual Orientation [facility] ospital [facility] Start: 01-01-2020 Sex Female (finding) [facility] Start: 03-19-2025 Alcoholic beverage intake Curr ent non-drinker of alcohol (finding) [facility] Start: 03-18-2025 End: 04-18-2025 History of Social function [facility] Start: 03-18-2025 End: 04-18-2025 Tobacco use panel [facility] Start: 10-07-2012 National Score (1-10 0), lower number is lower risk 46 [facility] Start: 1970 Sex assigned at Not on file [facility] Medical Equipment Procedure Code Equipment Code Equipment Origin al Text Equipment Identifier Dates Sys Hemphill-Crwfrd Lacrimal Intub - [id number] Start: 01-23-2020 Functional Status Date Assessment Result Facility 06-10-2023 Functional Status Standard Safet y ID band on, Allergy Band on, Call device within reach, Bed in low position, Wheels locked, Upper/Half-Length side-rails up, Phone within reach, personal items within reach, Bedside Cart Locked, Safety level maintained [facility] 10-21-2022 Functional Status Home Living Ad ditional Information Objective: Cardiovascular screen: BP: 130/80 HR: 92 BPM O2 sat: 94% Gait: Mild antalgic gait with limited terminal knee extension during terminal swing phase. Limited knee flexion and stiff legged gait as well. Weight bearing status: no current restrictions Observation in standing: weight shift L Joint Mobility: not tested: Effusion: min to no effusion noted R knee Functional Strength: ASLR: 10 deg lag Palpation: Some mild tenderness to medial joint line R knee [facility] Mental Status Date Assessment Result Facility 06-10-2023 Mental Status Orientation Oriented x 4 [facility] Clinical Notes 06-10-2023 to 07-08-2025 Telephone Encounter - Judith Oseguera RN - 07/08/2025 1:37 PM EDTTelephone Encounter - Judith Oseguera RN - 07/08/2025 1:37 PM Susanna Crabtree RT(R) - 04/15/2025 12:50 PM EDT Note Date & Type Note Facility 07-08-2025 Telephone encount er Note Last OV 03/19/25. Requested Prescriptions Pending Prescriptions Disp Refills progesterone micronized (PROMETRIUM) 200 mg capsule 30 capsule 1 Sig: Take 1 capsule by mouth daily at bedtime. Refused Prescriptions Disp Refills progesterone micronized (PROMETRIUM) 200 mg capsule [Pharmacy Med Name: PROGESTERONE 200 MG CAPS 200 Capsule] 30 capsule 1 Sig: TAKE 1 CAPSULE BY MOUTH DAILY AT BEDTIME. Refused By: JUDITH OSEGUERA Reason for Refusal: Patient should contact Prescriber first Judith Oseguera RN [facility] 07-08-2025 Miscellaneous Notes Formattin g of this note is different from the original. Last OV 03/19/25. Requested Prescriptions Pending Prescriptions Disp Refills progesterone micronized (PROMETRIUM) 200 mg capsule 30 capsule 1 Sig: Take 1 capsule by mouth daily at bedtime. Refused Prescriptions Disp Refills progesterone micronized (PROMETRIUM) 200 mg capsule [Pharmacy Med Name: PROGESTERONE 200 MG CAPS 200 Capsule] 30 capsule 1 Sig: TAKE 1 CAPSULE BY MOUTH DAILY AT BEDTIME. Refused By: JUDITH OSEGUERA Reason for Refusal: Patient should contact Prescriber first Judith Oseguera RN documented in this encounter [facility] 06-13-2025 Progress note [facility] 05-30-2025 Note . MICRO - Microbiology PROCEDURE: Throat Culture [*1] SOURCE: Throat BODY SITE: COLLECTED DATE/TIME: 05/28/2025 16:25 EDT RECEIVED DATE/TIME: 05/28/2025 20:51 EDT START DATE/TIME: 05/28/2025 20:51 EDT FREE TEXT SOURCE: FINAL REPORTS Final Report [] Verified Date/Time/Personnel: 05/30/2025 06:54 EDT Normal throat duarte present Sensitivity Testing: Not Indicated PRELIMINARY REPORTS Preliminary Report [] Verified Date/Time/Personnel: 05/29/2025 11:19 EDT Negative for upper respiratory pathogens at 24 hours. Performing Locations *1: This test was performed at: [facility], [address] [place] [address], [address] [place] [address] 04-15-2025 History of Present illness Narrative Radiology Service Progress Note PATIENT NAME: Nimesh Alcazar DATE OF SERVICE: April 15, 2025 TIME: 1:17 PM PATIENT IDENTITY VERIFICATION COMPLETED USING TWO (2) IDENTIFIERS: Name and Date of confirmed by patient verbally. FALL SCREENING: Has the patient had 2 falls in the last year or 1 fall with injury or currently using an Ambulatory Assistive Device (Walker, Cane, Wheelchair, Crutches, etc.)? No PATIENT GENDER DATA: Assigned female at . status: : No status: NO. PATIENT RELEVANT IMPLANT DATA REVIEWED: Not Applicable PATIENT PRESENTS WITH AN IMPLANTABLE OR ATTACHED LICENSED NURSING ASSISTANT: No RADIOLOGY DEPARTMENT: Mammography PERIPHERAL IV DATA: Not applicable SIGNED BY: ALINE Rockwell) April 15, 2025 1:17 PM documented in this encounter [facility] 04-15-2025 Note HNO ID: [id number] Author: SUSANNA WHITMAN RT(R) Service: ? Author Type: Technologist Type: Progress Notes Filed: 04/15/2025 13:17 Note Text: Radiology Service Progress Note PATIENT NAME: Nimesh Alcazar DATE OF SERVICE: April 15, 2025 TIME: 1:17 PM PATIENT IDENTITY VERIFICATION COMPLETED USING TWO (2) IDENTIFIERS: Name and Date of confirmed by patient verbally. FALL SCREENING: Has the patient had 2 falls in the last year or 1 fall with injury or currently using an Ambulatory Assistive Device (Walker, Cane, Wheelchair, Crutches, etc.)? No PATIENT GENDER DATA: Assigned female at . status: : No status: NO. PATIENT RELEVANT IMPLANT DATA REVIEWED: Not Applicable PATIENT PRESENTS WITH AN IMPLANTABLE OR ATTACHED LICENSED NURSING ASSISTANT: No RADIOLOGY DEPARTMENT: Mammography PERIPHERAL IV DATA: Not applicable SIGNED BY: Susanna J Carlos, (R) April 15, 2025 1:17 PM [facility] 03-19-2025 Note HNO ID: [id number] Author: ELHAM AGUIRRE MD Service: ? Author Type: Physician Type: Progress Notes Filed: 03/19/2025 11:29 Note Text: Nimesh Alcazar is a 54 year old female who presents for problem visit for c/o premature menopause. HPI: 54-year-old female who is completed childbearing who presents today for follow-up early menopause. 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 However, he is retiring and she is looking for a new radar engineer. Patient states she stopped having periods at approximately age 29 and has been on estrogen therapy since. She is currently on Duavee and does fairly well on it. She denies any vaginal bleeding. She denies any history of VTE, stroke or heart attack. She states she still has some hot flashes at times. She also has some mixed urinary incontinence with urge incontinence being bothersome. It has been significantly improved with Gemtesa but she has trouble affording this as well as the Duavee. Patient reports her Pap smears have always been normal. 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 Fibromyalgia 11/06/1999 was on savella and lyrica Hypothyroidism Impaired glucose tolerance 04/06/2010 2 hr 152 menopause transition Migraine depakote Mixed incontinence MVP (mitral valve prolapse) Other and unspecified hyperlipidemia on simvastatin Psoriatic arthritis (HCC) Snoring no OSAS 05/19/2010 outside sleep test PAST SURGICAL HISTORY Procedure Laterality Date DELIVERY ONLY 1991,1992,1997 , low transverse PAST SURGICAL HISTORY OF 06/[address] Cali at [facility]; 2011 repeat neck surgery FAMILY HISTORY Problem Relation Age of Onset Hypertension Father CABG neprolithiasis other (hysterectomy [Other]) Mother thyroid Hypertension Sister other (healthy [Other]) Sister other (healthy [Other]) Brother other (healthy [Other]) Brother other (healthy [Other]) Brother other (healthy [Other]) Daughter other (healthy [Other]) Daughter other (healthy [Other]) Son other (healthy [Other]) Son Social History Tobacco Use Smoking status: Never Substance Use Topics Alcohol use: No Drug use: No Current Outpatient Medications Medication Sig cinnamon bark (CINNAMON ORAL) Take by mouth. metformin HCl (METFORMIN ORAL) Take by mouth. ATENOLOL ORAL Take by mouth. thymol/chlorophyllin (CHLOROPHYLL ORAL) Take 50 mg by mouth once daily. divalproex DR (DEPAKOTE) 500 mg EC tablet Take 500 mg by mouth once daily. furosemide (LASIX) 20 mg tablet Take 20 mg by mouth once daily. magnesium oxide,aspartate,citr (TRIPLE MAGNESIUM COMPLEX) 400 mg magnesium cap Take by mouth as directed. montelukast (SINGULAIR) 10 mg tablet Take 10 mg by mouth once daily. omeprazole (PRILOSEC) 20 mg capsule Take 20 mg by mouth once daily. levothyroxine (SYNTHROID) 50 mcg tablet Take 50 mcg by mouth once daily. valACYclovir (VALTREX) 1 gram Take 2,000 mg by mouth q 12 HR. simvastatin (ZOCOR) 40 mg ORAL tablet Take 1 tablet by mouth daily at bedtime. GENERIC OK CRANBERRY 500 MG CAP Take 1500 mg daily VERAPAMIL 120 MG TAB Take one(1) tablet two(2) times daily. levocetirizine dihydrochloride(XYZAL 5 MG TAB) Take one(1) tablet daily. solifenacin 10 mg tablet Take 1 tablet by mouth once daily. estradiol (VIVELLE-DOT) 0.05 mg/24 hr patch Apply 1 patch as directed two times a week. TWICE WEEKLY progesterone micronized (PROMETRIUM) 200 mg capsule Take 1 capsule by mouth daily at bedtime. ibuprofen (ADVIL) 200 mg tablet Take 200 mg by mouth every 6 hours as needed. PINDOLOL 5 MG TAB take one in am and two in pm No current facility-administered medications for this visit. Allergies As of Date: 03/19/2025 Allergen Noted Reaction CANTALOUPE 04/15/2010 Itching CHOCOLATE 04/15/2010 Itching CLAMS 04/15/2010 Itching EGGS [EGG] 04/15/2010 Itching ERYTHROMYCIN (BULK) 04/02/2010 GI Upset FISH 04/15/2010 Itching MILK CONTAINING PRODUCTS (DAIRY) 03/19/2025 Itching MONOSODIUM GLUTAMATE (MSG) 03/19/2025 Itching PEANUTS 04/15/2010 Itching SEPTRA [SULFAMETHOXAZOLE-TRIMETHO*01/03/20 12 Hives STRAWBERRIES 04/15/2010 Itching SULFA DRUGS [SULFA (SULFONAMIDE A*01/03/2012 Hives WATERMELON 04/15/2010 Itching Fully Assessed 03/19/2025 Allergies and current medication updated:Yes SENSITIVE EXAM: (more content not included)... [facility] 03-19-2025 History of Present illness Narrative Nimesh Alcazar is a 54 year old female who presents for problem visit for c/o premature menopause. HPI: 54-year-old female who is completed childbearing who presents today for follow-up early menopause. 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 However, he is retiring and she is looking for a new radar engineer. Patient states she stopped having periods at approximately age 29 and has been on estrogen therapy since. She is currently on Duavee and does fairly well on it. She denies any vaginal bleeding. She denies any history of VTE, stroke or heart attack. She states she still has some hot flashes at times. She also has some mixed urinary incontinence with urge incontinence being bothersome. It has been significantly improved with Gemtesa but she has trouble affording this as well as the Duavee. Patient reports her Pap smears have always been normal. 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 Fibromyalgia 11/06/1999 was on savella and lyrica Hypothyroidism Impaired glucose tolerance 04/06/2010 2 hr 152 menopause transition Migraine depakote Mixed incontinence MVP (mitral valve prolapse) Other and unspecified hyperlipidemia on simvastatin Psoriatic arthritis (HCC) Snoring no OSAS 05/19/2010 outside sleep test PAST SURGICAL HISTORY Procedure Laterality Date DELIVERY ONLY 1991,1992,1997 , low transverse PAST SURGICAL HISTORY OF 06/[address] Cali at [facility]; 2011 repeat neck surgery FAMILY HISTORY Problem Relation Age of Onset Hypertension Father CABG neprolithiasis other (hysterectomy [Other]) Mother thyroid Hypertension Sister other (healthy [Other]) Sister other (healthy [Other]) Brother other (healthy [Other]) Brother other (healthy [Other]) Brother other (healthy [Other]) Daughter other (healthy [Other]) Daughter other (healthy [Other]) Son other (healthy [Other]) Son Social History Tobacco Use Smoking status: Never Substance Use Topics Alcohol use: No Drug use: No Current Outpatient Medications Medication Sig cinnamon bark (CINNAMON ORAL) Take by mouth. metformin HCl (METFORMIN ORAL) Take by mouth. ATENOLOL ORAL Take by mouth. thymol/chlorophyllin (CHLOROPHYLL ORAL) Take 50 mg by mouth once daily. divalproex DR (DEPAKOTE) 500 mg EC tablet Take 500 mg by mouth once daily. furosemide (LASIX) 20 mg tablet Take 20 mg by mouth once daily. magnesium oxide,aspartate,citr (TRIPLE MAGNESIUM COMPLEX) 400 mg magnesium cap Take by mouth as directed. montelukast (SINGULAIR) 10 mg tablet Take 10 mg by mouth once daily. omeprazole (PRILOSEC) 20 mg capsule Take 20 mg by mouth once daily. levothyroxine (SYNTHROID) 50 mcg tablet Take 50 mcg by mouth once daily. valACYclovir (VALTREX) 1 gram Take 2,000 mg by mouth q 12 HR. simvastatin (ZOCOR) 40 mg ORAL tablet Take 1 tablet by mouth daily at bedtime. GENERIC OK CRANBERRY 500 MG CAP Take 1500 mg daily VERAPAMIL 120 MG TAB Take one(1) tablet two(2) times daily. levocetirizine dihydrochloride(XYZAL 5 MG TAB) Take one(1) tablet daily. solifenacin 10 mg tablet Take 1 tablet by mouth once daily. estradiol (VIVELLE-DOT) 0.05 mg/24 hr patch Apply 1 patch as directed two times a week. TWICE WEEKLY progesterone micronized (PROMETRIUM) 200 mg capsule Take 1 capsule by mouth daily at bedtime. ibuprofen (ADVIL) 200 mg tablet Take 200 mg by mouth every 6 hours as needed. PINDOLOL 5 MG TAB take one in am and two in pm No current facility-administered medications for this visit. Allergies As of Date: 03/19/2025 Allergen Noted Reaction CANTALOUPE 04/15/2010 Itching CHOCOLATE 04/15/2010 Itching CLAMS 04/15/2010 Itching EGGS [EGG] 04/15/2010 Itching ERYTHROMYCIN (BULK) 04/02/2010 GI Upset FISH 04/15/2010 Itching MILK CONTAINING PRODUCTS (DAIRY) 03/19/2025 Itching MONOSODIUM GLUTAMATE (MSG) 03/19/2025 Itching PEANUTS 04/15/2010 Itching SEPTRA [SULFAMETHOXAZOLE-TRIMETHO*01/03/20 12 Hives STRAWBERRIES 04/15/2010 Itching SULFA DRUGS [SULFA (SULFONAMIDE A*01/03/2012 Hives WATERMELON 04/15/2010 Itching Fully Assessed 03/19/2025 Allergies and current medication updated:Yes SENSITIVE EXAM: Sensitive exam not performed. EXAM: Ht 5' 3.5 (1.61m) Wt 149 lb (67.6kg) BMI 25.98 kg/(m^2). GENERAL: pleasant, female in no apparent distress ASSESSMENT AND PLAN: Assessment & Plan Hot flashes not due to menopause Urinary incontinence, urge Has been on Gemtesa. To expensive to afford. Not covered under her insurance. Discussed with her risk benefits and alternatives to trial of other medications. Discussed with her if these are not satisfactory could probably get medication and Gemtesa category prior authorized. Agrees to trial of solifenacin 10 mg. If not satisfactory contact office. Risk benefits and alternatives to estrogen therapy and various regimens were discussed with the patient, her questions were answered to her satisfaction she desires to proceed. Discussed with her recommendation for estradiol containing compound for estrogen therapy with progestin for endometrial protection Recommend transdermal formulation. Patient is receptive to this. Will use estrogen Mony 0.05 mg patch twice weekly with Prometrium 200 mg p.o. nightly. Patient will notify the office if unsatisfactory results. Follow-up for annual exam and mammogram in 1 year. Screening mammogram ordered. Elham Aguirre MD documented in this encounter [facility] 06-10-2024 Note ORIGINAL EXAMINATION: TWO XRAY VIEWS OF THE CHEST 06/10/2024 10:08 am COMPARISON: None. HISTORY: ORDERING SYSTEM PROVIDED HISTORY: Reason for Exam: pre operative testing FINDINGS: Normal cardiomediastinal silhouette. No focal consolidation, pleural effusion, or visible pneumothorax. Degenerative changes of the spine. Partially visualized postsurgical changes of the lower cervical spine. Possible left shoulder calcific tendinitis. IMPRESSION: No acute radiographic abnormality. Possible left shoulder calcific tendinitis. I have personally reviewed the images of this examination and agree with the resident's findings and interpretations. Interpreted by: Felix Camacho MD Preliminary Report By: Jyoti Hernandez Electronically signed By Felix Camacho MD Dictated Date: 06/10/2024 11:37:15 AM Prelim Date: 06/10/2024 11:42:24 AM Sign Date: 06/10/2024 11:42:24 AM Ordering Provider: ROBER HERRON [facility] 06-10-2023 Hospital Discharge instructions Patient Education 06/10/2023 12:49:13 Exercises to Prevent Falls Exercises to Prevent Falls Certain types of exercises may help make you less likely to fall. Try the ones below. Or do other exercises that your healthcare provider suggests. Depending on your health, you may need to start slowly. Don't let that stop you. Even small amounts of exercise can help you. Be sure to talk to your healthcare provider before starting any exercise program. Improve balance Many types of exercise can help improve balance. Arron chi and yoga are good examples. Here's another one to try. You can do it anytime and almost anywhere. Stand next to a counter or solid support. Push yourself up onto your tiptoes. Hold for 5 seconds. If you start to lose your balance, hold on to the counter. Rest and repeat 5 times. Work up to holding for 20 to 30 seconds, if you can. Increase flexibility Being more flexible makes it easier for you to move around safely. Try exercises like the seated hamstring stretch. Sit in a chair and put one foot on a stool. Straighten your leg and reach with both hands down either side of your leg. Reach as far down your leg as you can. Hold for about 20 seconds. Go back to the starting position. Then repeat 5 times. Switch legs. Build strength Resistance exercises help build strength. You can do them without equipment. Or you can use weights, elastic bands, or special machines. One such exercise is called the biceps curl. You can hold a 1-pound weight or even a can of soup. Do this exercise at least 3 times a week. Strive for every day. Sit up straight in a chair. Keep your elbow close to your body and your wrist straight. Bend your arm, moving your hand up to your shoulder. Then slowly lower your arm. Repeat 5 times. Switch to the other arm. Build your staying power Aerobic exercises make your heart and lungs stronger so you can keep moving longer. Walking and swimming are two of the best types of exercises you can do. Using a stationary bike is great, too. Find an aerobic exercise that you enjoy. Start slowly and build up. Even 5 minutes is helpful. Aim for a goal of 30 minutes, at least 3 times a week. You don't have to do 30 minutes in 1 session. Break it up and walk a little throughout the day. More helpful tips Start easy. Slowly work up to doing more. Talk with your healthcare provider about the best exercises for you. Call senior centers or health clubs about exercise programs. If needed, have a family member watch you walk every so often to check your stability. Exercise with a friend. Choose an activity you both enjoy. Consider arron chi or yoga to strengthen your balance. Try exercises that you can do anytime, anywhere. Here are 2 examples. Have someone with you when you first try these: oPractice walking by placing 1 foot right in front of the other. oStand up and sit down 10 times. Repeat this throughout the day. [id number] [employer]. [address] [place] [address]267. All rights reserved. This information is not intended as a substitute for professional medical care. Always follow your healthcare professional's instructions. Follow Up Care 06/10/2023 11:22:22 With:LOREE QUIROZ DO Orthopedic Address: [address] [place] [address] [phone] When:2-4 days With:KATHI SEARS MONOGRAM MACHINE OPERATOR-BELT MACHINE OPERATOR Address: [address] [place] [phone] When:2-4 days [facility] 06-10-2023 Emergency department Discharge summary Discharge Instructions Thank you for allowing [facility] to assist you with your healthcare needs. The following is important discharge information regarding your hospital visit. Diagnosis from Today's Visit Ankle pain-swelling What to Do Next Instructions from Your Care Team No qualifying data available. Post Acute Orders No qualifying data available. You Need to Schedule the Following Appointments Follow Up with LOREE QUIROZ DO Orthopedic When Within 2-4 days Where: [address] [place] [address] [phone] Follow Up with KATHI SEARS MONOGRAM MACHINE OPERATOR-BELT MACHINE OPERATOR When Within 2-4 days Where: [address] [place] [phone] Allergies Septra (RASH) erythromycin (NAUSEA) Medications Please ask your primary doctor or pharmacist before taking any other medication not listed, including over the counter drugs, herbal medications, vitamins and or supplements as they may interact with your home medications. What How Much When Instructions Last Dose Unchanged atenolol (atenolol 25 mg oral tablet) See instructions TAKE 1 TABLET BY MOUTH EVERY DAY Unchanged calcium-vitamin D (calcium (as carbonate and lactate)-vitamin D 200 mg-250 intl units (6.25 mcg) oral tablet, chewable) 1 tab(s) Chewed Once a day Unchanged cholecalciferol (Vitamin D3 10,000 intl units (250 mcg) oral capsule) 1 cap by mouth Once a day Unchanged divalproex sodium (divalproex sodium 500 mg oral tablet, extended release) 1 tab(s) by mouth Once a day with food. do not crush or chew Unchanged ethinyl estradiol-levonorgestrel (Sronyx 100 mcg-20 mcg oral tablet) TAKE 1 TABLET EVERY DAY FOR 3 WEEKS DISCARD LAST WEEK Unchanged furosemide (furosemide 20 mg oral tablet) 1 tab(s) by mouth Every day Unchanged herbal/ nutritional product (Chlorophyll) 50 Milligram by mouth Every day Unchanged herbal/ nutritional product (cranberry oral capsule) 1 cap by mouth Every day Unchanged herbal/ nutritional product (Magnesium complex 400 mg) Unchanged ibuprofen (IBU 600 mg oral tablet) 1 tab(s) by mouth Every 6 hours Unchanged levocetirizine (Xyzal) 5 Milligram by mouth Once a day (in the evening) Unchanged levothyroxine (levothyroxine 50 mcg (0.05 mg) oral tablet) 1 tab(s) by mouth Once a day Duration: 90 Days Unchanged meloxicam (meloxicam 7.5 mg oral tablet) 1 tab(s) by mouth Once a day as needed for Pain Duration: 30 Days Take with food/ milk Unchanged metFORMIN (MetFORMIN (Eqv-Glucophage XR) 500 mg oral tablet, EXTENDED RELEASE) 1 tab(s) by mouth Once a day Unchanged montelukast (montelukast 10 mg oral tablet) 1 tab(s) by mouth Once a day Unchanged multivitamin (B 100 Complex) 1 tab(s) by mouth Every day Unchanged multivitamin (Multiple Vitamins oral tablet) 1 tab(s) by mouth Every day Unchanged omeprazole (omeprazole 20 mg oral delayed release capsule) 1 cap by mouth Once a day Unchanged simvastatin (simvastatin 40 mg oral tablet) 1 tab(s) by mouth Daily at bedtime Unchanged ubiquinone (Coenzyme Q10) 50 Milligram by mouth Every day Unchanged valACYclovir (valACYclovir 1 g oral tablet) 2 tab(s) by mouth Every 12 hours TAKE 2 TABLETS EVERY 12 HOURS NEEDED Unchanged verapamil (verapamil 120 mg/ 12 hours oral tablet, extended release) See instructions TAKE 1 TABLET BY MOUTH TWICE A DAY Please take this list to your next doctor s visit. Bring all medications you take, including over the counter medications, herbals and other supplements with you to your doctor s visit. Patients and families are reminded to discard old lists and to update any records with all medication providers or retail pharmacies. Education Materials Exercises to Prevent Falls Certain types of exercises may help make you less likely to fall. Try the ones below. Or do other exercises that your healthcare provider suggests. Depending on your health, you may need to start slowly. Don't let that stop you. Even small amounts of exercise can help you. Be sure to talk to your healthcare provider before starting any exercise program. Improve balance Many types of exercise can help improve balance. Arron chi and yoga are good examples. Here's another one to try. You can do it anytime and almost anywhere. Stand next to a counter or solid support. Push yourself up onto your tiptoes. Hold for 5 seconds. If you start to lose your balance, hold on to the counter. Rest and repeat 5 times. Work up to holding for 20 to 30 seconds, if you can. Increase flexibility Being more flexible makes it easier for you to move around safely. Try exercises like the seated hamstring stretch. Sit in a chair and put one foot on a stool. Straighten your leg and reach with both hands down either side of your leg. Reach as far down your leg as you can. Hold for about 20 seconds. Go back to the starting position. Then repeat 5 times. Switch legs. Build strength Resistance exercises help build strength. You can do them without equipment. Or you can use weights, elastic bands, or special machines. One such exercise is called the biceps curl. You can hold a 1-pound weight or even a can of soup. Do this exercise at least 3 times a week. Strive for every day. Sit up straight in a chair. Keep your elbow close to your body and your wrist straight. Bend your arm, moving your hand up to your shoulder. Then slowly lower your arm. Repeat 5 times. Switch to the other arm. Build your staying power Aerobic exercises make your heart and lungs stronger so you can keep moving longer. Walking and swimming are two of the best types of exercises you can do. Using a stationary bike is great, too. Find an aerobic exercise that you enjoy. Start slowly and build up. Even 5 minutes is helpful. Aim for a goal of 30 minutes, at least 3 times a week. You don't have to do 30 minutes in 1 session. Break it up and walk a little throughout the day. More helpful tips Start easy. Slowly work up to doing more. Talk with your healthcare provider about the best exercises for you. Call senior centers or health clubs about exercise programs. If needed, have a family member watch you walk every so often to check your stability. Exercise with a friend. Choose an activity you both enjoy. Consider arron chi or yoga to strengthen your balance. Try exercises that you can do anytime, anywhere. Here are 2 examples. Have someone with you when you first try these: oPractice walking by placing 1 foot right in front of the other. oStand up and sit down 10 times. Repeat this throughout the day. 6370-0284 [employer]. [address] [place] [address], [place] [address]. All rights reserved. This information is not intended as a substitute for professional medical care. Always follow your healthcare professional's instructions. Additional Information VACCINATE! IT SAVES LIVES! Members of the community who have not yet received the COVID-19 vaccine and would like to receive it can visit one of [facility] vaccine clinics. There are many vaccine clinic locations within the [facility]. For locations and available times, please visit www.gettheshot.coronavirus.[place].gov /. It is important to note that some COVID mobile vaccine clinics are held outdoors and may be canceled in rainy or stormy conditions. To learn more about pediatric vaccinations (ages 5-11), we invite you to visit the [facility] webpage. https://www.[facility].org/page s/8714-Hipzd-Xgppzwbpwxh-Frequently -Asked-Questions.html To learn more about the COVID-19 vaccine, we invite you to visit the CDC website for a list of frequently asked questions. https://www.cdc.gov/coronavirus/201 9-ncov/vaccines/faq.html [facility] Patient [facility] Access Instructions: Stay connected with your healthcare team and access your personal medical information anytime with the [facility] Patient Portal. If you would like a full copy of your medical records please contact the [facility] Medical Records Department Monday through Monday between 8a.m. and 4:30p.m. Please follow the directions below to access the portal: 1.Access the email account you provided upon registration to the hospital.2.Look for an invitation email from [facility].3.Open the email and access the invitation link: Accept Invitation to [facility]4.Fill in the required merino to create your account. Sign into [email or web address] with your username and password that you created in the above steps to stay up to date. You can then view a summary of results, a summary of your visits, and the ability to download your summaries to your computer or send the information securely to a physician. Remember that your healthcare information is confidential, so carefully consider who you will allow to register on the [facility] Patient Portal for access to your information. You can also access the [facility] Patient Portal on the [employer]. Simply click on Health Records under Health Data and then click on the [facility] logo. HOW TO SAFELY DISPOSE OF PRESCRIPTION MEDICATIONS Please use one of the following methods to safely dispose of your unused medications. 1.Use a drug disposal kit: the drug disposal pouch allows you to safely discard your old and unused drugs. Ask your nurse to give you one when you are discharged.2.Visit a local take-back location: Many local pharmacies and police departments have programs that collect old and unwanted prescription drugs. Call your local pharmacy or go to http://iFit.[employer]/8Q9Fe3u to find one close to you.3.Make use of household items: Use cat litter or old coffee grounds to dispose medications if other options are not available. Mix your drugs with these household products, seal them in an airtight container and throw it into the garbage. Call [facility]: [phone] to be sure your drugs can be disposed of in this way. Some medicines may require a different approach.4.Never flush your medications down the toilet. IF YOU HAVE BEEN PRESCRIBED AN OPIOIDS FOR PAIN If you have been prescribed an opioid (such as hydrocodone, oxycodone or morphine), it is critical to understand the possible side effects and risks of opioid pain medications. Even when taken as directed, opioids can have several side effects including: Tolerance, meaning you might need to take more of a medication for the same pain relief. Nausea, vomiting and/or constipation. Sleepiness, dizziness, dry mouth, confusion, depression or itching. Physical dependence, meaning you have withdrawal symptoms when a medication is stopped ? this can develop within a few days. KNOW YOUR RESPONSIBILITIES It is important to know exactly how much and how often to take the opioid pain medications you are prescribed. Never take opioids in higher amounts or more often than prescribed. Do not combine opioids with alcohol or other drugs that cause drowsiness, such as benzodiazepines, also known as benzos, including diazepam and alprazolam, muscle relaxants or sleep aids. Never sell or share prescription opioids. This is illegal. Store opioids in a secure place and out of reach of others (including children, family, friends and visitors). The last page(s) of this document has been signed and retained as a CHART COPY Signatures Patient Education Materials Exercises to Prevent Falls Medication Leaflets My discharge plan and instructions have been reviewed and explained to me and I,NIMESH ALCAZAR understand my current condition and have read and understand these discharge instructions. I have received a written copy of the plan/instructions. If I have questions, I am aware that I should contact my doctor. 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 Auth (Verified) [facility] 08-05-2023 Note ORIGINAL EXAMINATION: THREE XRAY VIEWS OF THE RIGHT ANKLE 06/10/2023 11:50 am COMPARISON: None. HISTORY: ORDERING SYSTEM PROVIDED HISTORY: Reason for Exam: pain FINDINGS: Small posterior and plantar calcaneal spurs are present. Medial soft tissue swelling is evident. There is no fracture or dislocation seen. No other contributory finding. IMPRESSION: Medial soft tissue injury with no fracture seen. Interpreted by: Elke Mayfield MD Preliminary Report By: Elke Mayfield MD Electronically signed By Elke Mayfield MD Dictated Date: 06/10/2023 11:55:58 AM Prelim Date: 06/10/2023 11:56:33 AM Sign Date: 06/10/2023 11:56:33 AM [facility] Future Appointments Appointment Date:11/09/2021 09:45:00 AM Scheduled Provider:KATHI SEARS Location:[facility] Appointment Type:PC OV Appointment Date:05/30/2022 10:00:00 AM Scheduled Provider:RHEA TRACY Location:[facility] Appointment Type:CV OV [facility] Evaluation + Plan note Future Appointments Appointment Date:05/10/2022 09:30:00 AM Scheduled Provider:KATHI SEARS Location:[facility] Appointment Type:PC OV Appointment Date:05/30/2022 10:00:00 AM Scheduled Provider:RHEA TRACY Location:[facility] Appointment Type:CV OV Future Scheduled Tests Radiology* MA Mammo Screening Bilateral w/ Hayden 11/09/21 [facility] Evaluation + Plan note Future Appointments Appointment Date:09/20/2022 01:00:00 PM Scheduled Provider:KATHI SEARS Location:[facility] Appointment Type:PC OV Appointment Date:11/09/2022 09:30:00 AM Scheduled Provider:KAHTI SEARS Location:[facility] Appointment Type: OV Future Scheduled Tests Laboratory* A1C Hemoglobin 11/10/22 * Complete Blood Count 11/10/22 * Lipid Profile 11/10/22 * Complete Metabolic Panel 11/10/22 Radiology* MA Mammo Screening Bilateral w/ Hayden 11/09/21 [facility] Evaluation + Plan note Future Appointments Appointment Date:11/02/2022 09:00:00 AM Scheduled Provider: Location:[facility] Appointment Type:PT Treatment - [place] Appointment Date:11/09/2022 08:30:00 AM Scheduled Provider: Location:[facility] Appointment Type:PT [facility] Appointment Date:11/09/2022 09:30:00 AM Scheduled Provider:KATHI SEARS Location:[facility] Appointment Type:PC OV Future Scheduled Tests Radiology* MA Mammo Screening Bilateral w/ Hayden 11/09/21 [facility] Evaluation + Plan note Future Appointments Appointment Date:03/08/2023 09:00:00 AM Scheduled Provider:KATHI SEARS Location:[facility] Appointment Type:PC OV Future Scheduled Tests Laboratory* Thyroid Stimulating Hormone 03/09/23 * Free T4 03/09/23 * A1C Hemoglobin 03/09/23 * Lipid Profile 03/09/23 * Complete Metabolic Panel 03/09/23 [facility] Evaluation + Plan note Future Appointments Appointment Date:03/08/2023 09:00:00 AM Scheduled Provider:KATHI SEARS Location:[facility] Appointment Type:PC OV [facility] Evaluation + Plan note Future Appointments Appointment Date:12/12/2023 09:00:00 AM Scheduled Provider:KATHI SEARS Location:[facility] Appointment Type:PC OV Future Scheduled Tests Laboratory* A1C Hemoglobin 12/08/23 * Complete Metabolic Panel 12/08/23 [facility] Evaluation + Plan note Future Appointments Appointment Date:07/18/2023 08:00:00 AM Scheduled Provider: Location:[facility] Appointment Type:CV Procedure - AOH Echo Appointment Date:08/09/2023 10:00:00 AM Scheduled Provider:RHEA TRACY Location:[facility] Appointment Type:CV OV Appointment Date:12/12/2023 09:00:00 AM Scheduled Provider:KATHI SEARS Location:[facility] Appointment Type:PC OV Future Scheduled Tests Laboratory* A1C Hemoglobin 12/08/23 * Complete Metabolic Panel 12/08/23 [facility] Evaluation + Plan note Future Appointments Appointment Date:12/12/2023 09:00:00 AM Scheduled Provider:KATHI SEARS Location:[facility] Appointment Type:PC OV [facility] Evaluation + Plan note Future Appointments Appointment Date:03/13/2024 10:30:00 AM Scheduled Provider:KATHI SEARS Location:[facility] Appointment Type:PC OV Future Scheduled Tests Laboratory* Lipase Level 03/11/24 * Thyroid Stimulating Hormone 03/11/24 * Free T4 03/11/24 * A1C Hemoglobin 03/11/24 * A1C Hemoglobin 03/11/24 * A1C Hemoglobin 03/02/24 * Complete Blood Count 03/11/24 * Lipid Profile 03/11/24 * Complete Metabolic Panel 03/11/24 * Complete Metabolic Panel 03/11/24 [facility] Evaluation + Plan note Future Appointments Appointment Date:03/13/2024 10:30:00 AM Scheduled Provider:KATHI SEARS Location:[facility] Appointment Type:PC OV Appointment Date:06/10/2024 09:30:00 AM Scheduled Provider:RHEA TRACY Location:[facility] Appointment Type:CV OV Future Scheduled Tests Laboratory* A1C Hemoglobin 03/11/24 * A1C Hemoglobin 03/02/24 * Complete Metabolic Panel 03/11/24 [facility] Evaluation + Plan note Future Appointments Appointment Date:06/12/2024 10:00:00 AM Scheduled Provider:KATHI ESARS Location:[facility] Appointment Type:PC OV Appointment Date:06/16/2025 09:00:00 AM Scheduled Provider:RHEA TRACY Location:[facility] Appointment Type:CV OV Future Scheduled Tests Laboratory* A1C Hemoglobin 03/11/24 * A1C Hemoglobin 06/14/24 * A1C Hemoglobin 03/02/24 * Complete Metabolic Panel 03/11/24 Radiology* MRI Spine Lumbar w/ + w/o Contrast 05/01/24 [facility] Evaluation + Plan note Future Appointments Appointment Date:01/01/2025 08:00:00 AM Scheduled Provider:KATHI SEARS Location:[facility] Appointment Type:PC OV Appointment Date:06/16/2025 09:00:00 AM Scheduled Provider:RHEA TRACY Location:[facility] Appointment Type:CV OV Future Scheduled Tests Laboratory* A1C Hemoglobin 06/14/24 * A1C Hemoglobin 03/02/24 Radiology* MRI Spine Lumbar w/ + w/o Contrast 05/01/24 [facility] Evaluation + Plan note Future Appointments Appointment Date:06/16/2025 09:00:00 AM Scheduled Provider:RHEA TRACY Location:[facility] Appointment Type:CV OV Appointment Date:07/01/2025 09:00:00 AM Scheduled Provider:KATHI SEARS Location:[facility] Appointment Type:PC OV Future Scheduled Tests Laboratory* Thyroid Stimulating Hormone 07/01/25 * Free T4 07/01/25 * A1C Hemoglobin 06/14/24 * A1C Hemoglobin 07/01/25 * A1C Hemoglobin 03/02/24 * Complete Blood Count 07/01/25 * Lipid Profile 07/01/25 * Complete Metabolic Panel 07/01/25 Radiology* MRI Spine Lumbar w/ + w/o Contrast 05/01/24 [facility] Evaluation + Plan note Future Appointments Appointment Date:04/22/2025 08:00:00 AM Scheduled Provider:KATHI SEARS Location:[facility] Appointment Type:PC OV Appointment Date:06/16/2025 09:00:00 AM Scheduled Provider:RHEA TRACY Location:[facility] Appointment Type:CV OV Appointment Date:07/01/2025 09:00:00 AM Scheduled Provider:KATHI SEARS APRN-EDMAR Location:[facility] Appointment Type:PC OV Future Scheduled Tests Laboratory* Thyroid Stimulating Hormone 07/01/25 * Free T4 07/01/25 * A1C Hemoglobin 07/01/25 * Complete Blood Count 07/01/25 * Lipid Profile 07/01/25 * Complete Metabolic Panel 07/01/25 Radiology* MRI Spine Lumbar w/ + w/o Contrast 05/01/24 [facility] Evaluation + Plan note Future Appointments Appointment Date:06/16/2025 09:00:00 AM Scheduled Provider:RHEA TRACY Location:[facility] Appointment Type:CV OV Appointment Date:07/01/2025 09:00:00 AM Scheduled Provider:KATHI SEARS Location:[facility] Appointment Type:PC OV Future Scheduled Tests Laboratory* Thyroid Stimulating Hormone 07/01/25 * Free T4 07/01/25 * A1C Hemoglobin 07/01/25 * Complete Blood Count 07/01/25 * Lipid Profile 07/01/25 * Complete Metabolic Panel 07/01/25 [facility] Evaluation + Plan note Future Appointments Appointment Date:06/16/2025 09:00:00 AM Scheduled Provider:RHEA TRACY Location:[facility] Appointment Type:CV OV Appointment Date:07/01/2025 09:00:00 AM Scheduled Provider:KATHI SEARS APRN-EDMAR Location:[facility] Appointment Type:PC OV Future Scheduled Tests Laboratory* Throat Culture 05/28/25 * Thyroid Stimulating Hormone 07/01/25 * Free T4 07/01/25 * A1C Hemoglobin 07/01/25 * Complete Blood Count 07/01/25 * Lipid Profile 07/01/25 * Complete Metabolic Panel 07/01/25 [facility] Evaluation + Plan note Future Appointments Appointment Date:07/01/2025 09:00:00 AM Scheduled Provider:KATHI SEARS APRN-BELT MACHINE OPERATOR Location:[facility] Appointment Type:PC OV Appointment Date:06/16/2026 09:00:00 AM Scheduled Provider:RHEA TRACY Location:[facility] Appointment Type:CV OV Future Scheduled Tests Laboratory* Throat Culture 05/28/25 [facility] Evaluation note* Diagnosis Hot flashes not due to menopause- Primary Flushing Urinary incontinence, urge Urge incontinence Encounter for gynecological examination (general) (routine) without abnormal findings Encounter for screening mammogram for breast cancer * Assessment & Plan Note - Elham Aguirre MD - 03/19/2025 11:29 AM EDT Associated Problem(s): Hot flashes not due to menopause * Assessment & Plan Note - Elham Aguirre MD - 03/19/2025 11:29 AM EDT Associated Problem(s): Urinary incontinence, urge Has been on Gemtesa. To expensive to afford. Not covered under her insurance. Discussed with her risk benefits and alternatives to trial of other medications. Discussed with her if these are not satisfactory could probably get medication and Gemtesa category prior authorized. Agrees to trial of solifenacin 10 mg. If not satisfactory contact office. [facility] Onset Date Resolution Status Admit Date Difficulty swallowing pills acute June 13, 2025 9:53am Dry mouth, unspecified acute 2024 9:53am Heartburn acute June 13 9:53am Hoarseness of voice acute Augus t 2024 9:53am [facility] Work Phone: Hospital course Narrative No data available for this section [facility] Hospital Discharge instructions No data available for this section [facility] Progress note No data available for this section [facility] Pronvhns note Author Netta Gonzalez [facility] Note Date/Time June 13, 2025 11: 08am [facility] Gastroenterology [address] [place] [address] OFFICE VISIT Date of Service: 06/13/25 MR#: [id number] Acct: [id number] Name: NIMESH ALCAZAR Rep #: [id number] : 1970 Provider: HERMELINDO Gonzalez Age/Sex: 54/F Location[facility] Status: Signed Intake Intake Visit Reasons: Dry Mouth/Dysphagia Chief Digital Media Officer Required: No Accompanied by: Self Is patient in pain?: No Allergies erythromycin base Allergy (Intermediate, Verified 06/13/25 10:06) Nausea sulfamethoxazole (From Julra) Allergy (Intermediate, Verified 06/13/25 10:06) Rash, nausea trimethoprim (From Julra) Allergy (Intermediate, Verified 06/13/25 10:06) Rash, nausea Medications ?Medication ?Instructions ?Recorded ?Confirmed ?Type atenolol 25 mg tablet 25 mg PO QDAY 06/13/2506/13 History biotin 5,000 mcg chewable tablet mcg PO 06/13/2506/13 History chlorophyll copper complex 10 mg mg PO 06/13/25 History tablet cholecalciferol (vitamin D3) 250 250 mcg PO BID 06/13/25 History mcg (10,000 unit) capsule cinnamon bark 500 mg capsule 500 mg PO QDAY 06/13/25 0 06/13/25 History (Cinnamon) cranberry extract 250 mg capsule 500 mg PO QDAY 06/13/25 History ferrous sulfate 325 mg (65 mg 325 mg PO QDAY 06/13/25 06/13/25 History iron) tablet (Feosol) furosemide 20 mg tablet (Lasix) 20 mg PO QAM 06/13/25 06/13/25 History levocetirizine 5 mg tablet 5 mg PO QDAY 06/13/2506/13 History levothyroxine 50 mcg capsule 50 mcg PO QDAY 06/13/25 0 06/13/25 History magnesium 200 mg tablet 200 mg PO QDAY 06/13/25 08/06/30 History metformin 500 mg tablet 2,000 mg PO QDAY 06/13/25 History montelukast 10 mg tablet 10 mg PO QDAY 06/13/2506/13 History pantoprazole 40 mg tablet,delayed 40 mg PO DAILY #30 t abs 06/13/25 06/13/25 Rx release simvastatin 40 mg tablet 40 mg PO QDAY 06/13/2506/13 History verapamil 120 mg tablet 120 mg PO BID 06/13/2506/13 History Nurse's Note: Stopped taking Solifenacin Succinate 10mg and progesterone 200mg thinking possibly they were causing her dry mouth. She stopped applying the Estradiol patch 0.5mg 2x week for the same reason. [facility] Medical History Adjacent segment disease of cervical spine at C5-C6 level with history of fusionprocedure MVP (mitral valve prolapse) Surgical History H/O knee surgery History of carpal tunnel surgery of right wrist History of carpal tunnel surgery of left wrist H/O vaginal surgery History of Family History Mother Arthritis Hypertension Father Arthritis Hypertension High cholesterol Diabetes Brother Cancer pancreatic Social History Smoking Status: Never smoker HPI HPI Details: NIMESH ALCAZAR, is a 54 F who presents to the [facility] today [facility] regarding concerns of prolonged dry mouth, difficulty swallowing and hoarseness. She reports that she has had a significant increase in her amount ofdaily stress since the passing of her parents, 11 days apart, in February this year. She had an infected tooth that required antibiotics and extraction, following this she had a thrush infection her mouth and throat. She was treated unsuccessfully with Nystatin swish and swallow, was given Diflucan. She had a negative throat culture on 05.30.25. She continues to have dry mouth and throat that she feels is causing her difficulty in swallowing some pills and food. She has used Biotene mouthwash in the past, but not consistently. She has damari takingomeprazole 20mg daily for years. She reports occasional reflux and mild burning in her upper throat. She reports negative rheumatoid arthritis testing in the past and dealing with fibromyalgia and random joint pain for a little while. She denies dry eyes or difficulty urinating. ROS Const Constitutional: Positive for fatigue and headache(s); No fever(s) or weight change ENT ENT: Positive for headache(s), dry mouth, difficulty swallowing and sore throat Gastro GI: Positive for bloating, constipation (at times) and difficulty swallowing; No abdominal pain, belching, change in bowel habits, change in stool character, coffee ground emesis, cramping, diarrhea, heartburn, feeling full early, excessive flatus, incontinent of stools, Vomiting blood/hematemesis, Blood in stool, loose stools, Black,tarry stools, nausea/dyspepsia, pain with swallowing, vomiting or other Musc Musculoskeletal: Positive for Arthritis; No joint pain Skin Skin: No yellowing of the eye or itchy eyes Neuro Neurology: Positive for headache(s) Psych Psychiatric: Positive for anxiety and No depression Endo Endocrine: Positive for fatigue; No weight change Aller/Imm Allergy/Immunologic: No itchy eyes Sergio/Lymp Hematologic/Lymphatic: Positive for easy bruising; No easy bleeding Exam Const General: cooperative, healthy appearing, comfortable, no acute distress and wellgroomed Nutritional Appearance: average body habitus Orientation: alert and oriented x3 HENNJ Head: normal to inspection Ears: hearing grossly normal bilaterally Eyes General: appearance normal, both eyes and all related structures Sclera: sclerae normal Neck Neck: normal visual inspection and full ROM Chest Chest palpation & inspection: normal inspection of the chest Resp Effort & Inspection: normal respiratory effort and able to speak in complete sentences GI Inspection: normal to inspection Skin General: no rashes or lesions noted Neuro General: patient alert, patient oriented x3 and moves all extremities Cognition: normal cognition Speech: speech normal Gait: normal gait Extrem General: full ROM Psych Appearance: well kempt Mental Status: mental status grossly normal Mood: congruent mood Judgment: judgment good Assessment and Plan Assessment and Plan (1) Dry mouth, unspecified: Status: Acute (2) Difficulty swallowing pills: Status: Acute (3) Heartburn: Status: Acute (4) Hoarseness of voice: Status: Acute Orders: Orders [facility] Misc. Today Medications: New pantoprazole 40 mg PO DAILY 30 tabs 2RF Discontinued omeprazole Discontinued Reason: Order Changed 20 mg PO QDAY Plan NIMESH ALCAZAR, is a 54 F who presents to the office today for establishmentwith [facility]GI regarding concerns of prolonged dry mouth, difficulty swallowing and hoarseness. Discussed care plan with her. She prefers not to get blood testing for Sjogren's at this time. She wants to try the new PPI and daily use of Biotene first. * STOP omeprazole * add pantoprazole 40mg PO daily 30minutes before eating * use Biotene mouthwash twice daily * monitor for symptom improvement x2wks, if none proceed to Sjogren's testing * [facility] test for Sjogren's Ab ordered * office FU PRN Coding Level of Care Code New Pt Off vis,new,level 3 Patient Type New History Comprehensive Exam Expanded Problem Focused Medical Decision Making Low Complexity Diagnoses Dry mouth, unspecified R68.2 Difficulty swallowing pills R13.10 Heartburn R12 Hoarseness of voice R49.0 Clinical Quality Measures Smoking Screening Smoking Status: Never smoker 06/13/25 1108 <Electronically signed by Netta CASAREZ> Date _ Netta CASAREZ Cosigner Signature: Date (if applicable) CC: ~ [facility] Work Phone: Reason for referral (narrative)No reason for referral information [facility] Work Phone: Reason for visit Narrative* Consult, Test, Treat (Routine) - Closed Specialty Diagnoses / Procedures Referred By Jordin cuevas Referred To Contact [facility] Diagnoses Encounter for gynecological examination (general) (routine) without abnormal findings Encounter for screening mammogram for breast cancer Procedures GISELL SCREENING W HAYDEN SCREENING DIGITAL BREAST TOMOSYNTHESIS BI SCREENING MAMMOGRAPHY BI 2-VIEW BREAST INC CAD Elham Aguirre MD [address] [place] [address] Phone: tel: fax: [facility] [address] [place] [address] Referral ID Status Reason Start Date Expiration Date V isits Requested Visits Authorized [id number] Closed Auto-Generate d Referral 03/28/2025 11/05/2025 1 1 [facility] Summary Purpose Family History No Family History Records Found Relationship Condition Age at Onset Recorded Date/T ekaterina mother Arthritis Unknown Hypertension Unknown father Arthritis Unknown High blood cholesterol Unknown Diabetes mellitus Unknown brother Malignant neoplasm Unknown Advance Directives No Advanced Directives Records FoundNo Advanced Directives Records FoundNo Advanced Directives Records FoundNo Advanced Directives Records FoundNo Advanced Directives Records FoundNo Advanced Directives Records Found Chief Complaint and Reason for Visit Chief Complaint Admit Date Dry Mouth/Dysphagia June 13, 2025 9:5 3am Reason for Visit Admit Date Difficulty swallowing pills June 13, 2025 9:53am Dry mouth, unspecified June 13, 2025 9:53am Heartburn June 13, 2025 9:5 3am Hoarseness of voice June 13, 2025 9:5 3am Additional Source Comments INFORMATION SOURCE (unrecogn ized section and content) DATE CREATED AUTHOR 01/23/2020 [place] DATE CREATED AUTHOR AUTHOR'S ORGANIZ ATION 10/14/2022 [facility] DATE CREATED AUTHOR AUTHOR'S ORGANIZ ATION 06/14/2024 [facility] ([place]) DATE CREATED AUTHOR AUTHOR'S ORGANIZ ATION 04/21/2025 [facility] DATE CREATED AUTHOR AUTHOR'S ORGANIZ ATION 06/28/2025 [facility] DATE CREATED AUTHOR AUTHOR'S ORGANIZ ATION 09/15/2025 [facility] Care Team (unrecognized sect ion and content) Personnel Name: KATHI SEARS APRN-BELT MACHINE OPERATOR Address: Address: [address], [place] [address] Care Team Personnel Name: Cris Ferrari Position: Quality Review Member Role: Technical Supervisor Name: RENU, KATHI S MONOGRAM MACHINE OPERATOR-BELT MACHINE OPERATOR Position: P4 Advanced Practice Nurse Member Role: Primary Care Physician Address: Address: [address] [place] [address]- [place] Care Team Related Persons Name: ALL ALCAZAR Kimberly Address: Home [id number] [place] [phone] Name: EVERETT ASHLEY Care Team Personnel Name: Cris Ferrari Position: Quality Review Member Role: Technical Supervisor Name: KATHI SEARS MONOGRAM MACHINE OPERATOR-BELT MACHINE OPERATOR Position: P4 Advanced Practice Nurse Member Role: Primary Care Physician Address: Address: [address] [place] [address]- [place] Care Team Related Persons Name: ALL ALCAZAR Kimberly Address: Home [id number] [place] [phone] Name: EVERETT ASHLEY Care Team Personnel Name: Cris Ferrari Position: Quality Review Member Role: Technical Supervisor Name: KATHI SEARS MONOGRAM MACHINE OPERATOR-BELT MACHINE OPERATOR Position: P4 Advanced Practice Nurse Member Role: Primary Care Physician Address: Address: [address] Care Team Related Persons Name: INGE ALL Kimberly Address: Home [id number] [place] [phone] Name: EVERETT ASHLEY Patient Care team informatio n (unrecognized section and content) Video Game Designer Relationship Specialty Start Date End Date Ana Sears DO [address] [address] PCP - General Family Medicine 01/07/20 Video Game Designer Relationship Specialty Start Date End Date Ana Sears DO [address] [address] PCP - General Family Medicine 01/07/20 Video Game Designer Relationship Specialty Start Date End Date Ana Sears DO [address] [address] PCP - General Family Medicine 01/07/20 Team Status: Active Member Role/Relationship Status Dates Kathi Sears BOOK TRIMMER, BOOK TRIMMER-C Family Provider Active Kathi Sears BOOK TRIMMER, BOOK TRIMMER-C Primary Care Provider Active Team Status: Inactive Member Role/Relationship Status Dates Kathi Sears BOOK TRIMMER, BOOK TRIMMER-C Primary Care Provider Active Start: June 13, 2025 End: June 13, 2025 Netta Gonzalez NP-C Attending Provider Active S tart: June 13, 2025 End: June 13, 2025 Katy Ham NP, BOOK TRIMMER-C Referring Provider Active Start: June 13, 2025 End: June 13, 2025 Video Game Designer Relationship Specialty Start Date End Date Ana Sears DO [address] [facility] [address] [place] [address] PCP - General Family Medicine 01/07/20 Video Game Designer Relationship Specialty Start Date End Date Ana Sears DO [address] [facility] [address] [place] [address] PCP - General Family Medicine 01/07/20 Source Comments (unrecognize d section and content) In the event this informatio n is protected by the Federal Confidentiality of Alcohol and Drug Abuse Patient Records regulations: The Federal rules restrict any use of the information to criminally investigate or prosecute any alcohol or drug abuse patient.[facility] the event this information is protected by the Federal Confidentiality of Alcohol and Drug Abuse Patient Records regulations: The Federal rules restrict any use of the information to criminally investigate or prosecute any alcohol or drug abuse patient.[facility] the event this information is protected by the Federal Confidentiality of Alcohol and Drug Abuse Patient Records regulations: The Federal rules restrict any use of the information to criminally investigate or prosecute any alcohol or drug abuse patient.[facility] the event this information is protected by the Federal Confidentiality of Alcohol and Drug Abuse Patient Records regulations: The Federal rules restrict any use of the information to criminally investigate or prosecute any alcohol or drug abuse patient.[facility] the event this information is protected by the Federal Confidentiality of Alcohol and Drug Abuse Patient Records regulations: The Federal rules restrict any use of the information to criminally investigate or prosecute any alcohol or drug abuse patient.[facility] the event this information is protected by the Federal Confidentiality of Alcohol and Drug Abuse Patient Records regulations: The Federal rules restrict any use of the information to criminally investigate or prosecute any alcohol or drug abuse patient.[facility] Reason for Visit (unrecogniz ed section and content) Reason Comments Yearly Exam Reason Comments Refill Request Goals (unrecognized section and content) Goals may be documented in a n alternate section FOR RECORDS PERTAINING TO PATIENTS WHO ARE OR HAVE BEEN ENROLLED IN A CHEMICAL DEPENDENCY/SUBSTANCEABUSE PROGRAM, SOME INFORMATION MAY BE OMITTED. This clinical summary was aggregated from multiple sources. Caution should be exercised in using it in the provision of clinical care. This summary normalizes information from multiple sources, and as a consequence, information in this document may materially change the coding, format and clinical context of patient data. In addition, data may be omitted in some cases. CLINICAL DECISIONS SHOULD BE BASED ON THE PRIMARY CLINICAL RECORDS. [facility] PREVENT[facility]IC[facility]. provides no warranty or guarantee of the accuracy or completeness of information in this document.
--- NOTE | 2025-09-24 06:36 | PCM.HP.STD ---
HPI - General General Date of Admission: 09/24/25 Date of Service: 09/24/25 Chief Complaint: Heartburn HPI Narrative JEANE ALCAZAR, is a 54 F who presents [Chief Complaint: Heartburn GI established 06/13/2025 with Netta Gonzalez IMAGING SCIENCE PROFESSOR for concerns of prolonged dry mouth, difficulty swallowing and hoarseness. Patient with significant stress in her life due to her parents passing away in February 2025. Recent infected tooth that required antibiotics and subsequently developed thrush in her mouth and throat which was treated with nystatin and fluconazole. Patient takes omeprazole 20 mg daily. Start pantoprazole 40 mg daily, use Biotene mouthwash and test for Sjogren syndrome. SS-A/Ro IgG antibody negative and SS?B/LA IgG antibody negative OV 09/05/2025: Patient continues to have burning in her esophagus, lack of appetite and change in taste. Foods all taste better. She tried pantoprazole 40 mg twice a day but this did not help so she went back to omeprazole. She believes she is only taking 20 mg of omeprazole. Patient is becoming frustrated by her symptoms and wishes she had an answer. 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 MVP (mitral valve prolapse) Home Medications ?Medication ?Instructions ?Recorded ?Last Taken ?Type atenolol 25 mg tablet 25 mg PO QHS 06/13/25 Unknown History chlorophyll copper complex 10 mg 10 mg PO DAILY 06/13/25 Unknown History tablet cholecalciferol (vitamin D3) 250 250 mcg PO BID 06/13/25 Unknown History mcg (10,000 unit) capsule cranberry extract 250 mg capsule 500 mg PO QDAY 06/13/25 Unknown History furosemide 20 mg tablet (Lasix) 20 mg PO QAM 06/13/25 Unknown History levocetirizine 5 mg tablet 5 mg PO QDAY 06/13/25 Unknown History levothyroxine 50 mcg capsule 50 mcg PO QDAY 06/13/25 Unknown History magnesium 200 mg tablet 500 mg PO QDAY 06/13/25 Unknown History metformin 500 mg tablet 1,000 mg PO BID 06/13/25 Unknown History montelukast 10 mg tablet 10 mg PO QDAY 06/13/25 Unknown History simvastatin 40 mg tablet 40 mg PO QDAY 06/13/25 Unknown History verapamil 120 mg tablet 120 mg PO BID 06/13/25 Unknown History omeprazole 40 mg capsule,delayed 40 mg PO QDAY #30 caps 09/05/25 Unknown Rx release coenzyme Q10 30 mg capsule (Co 30 mg PO DAILY 09/22/25 Unknown History Q-10) estradiol 0.05 mg/24 hr semiweekly 1 patch transdermal TUFR 09/22/25 Unknown History transdermal patch progesterone micronized 200 mg 200 mg PO QHS 09/22/25 Unknown History capsule trazodone 100 mg tablet 100 mg PO QHS 09/22/25 Unknown History Allergy/AdvReac Type Severity Reaction Status Date / Time erythromycin base Allergy Intermediate Nausea Verified 09/05/25 12:53 sulfamethoxazole (From Allergy Intermediate Rash, Verified 09/05/25 12:53 Septra) nausea trimethoprim (From ) Allergy Intermediate Rash, Verified 09/05/25 12:53 nausea Family History Mother Arthritis Hypertension Father Arthritis Hypertension High cholesterol Diabetes Brother Cancer pancreatic Surgical History Hx of fusion of cervical spine H/O knee surgery History of carpal tunnel surgery of right wrist History of carpal tunnel surgery of left wrist H/O vaginal surgery History of Social History Smoking Status: Never smoker ROS Constitutional Constitutional: Denies fatigue, fever(s), poor appetite, weight gain or weight loss Gastrointestinal Gastrointestinal: Denies belching, bloating, change in bowel habits, change in stool character, chewing difficulty, coffee ground emesis, constipation, cramping, diarrhea, dyspepsia, dysphagia, early satiety, excessive flatus, fecal incontinence, heartburn, hematemesis, hematochezia, hemorrhoids, loose stools, melena, nausea, odynophagia, rectal bleeding, tenesmus, vomiting or weight changes Physical Exam Const alert, oriented x3, no apparent distress and healthy appearing General Appearance: cooperative GI normal to inspection, nondistended, normoactive bowel sounds, soft to palpation, non-tender and non-distended Percussion: normal to percussion Rectal Exam: deferred Assessment & Plan Assessment/Plan (1) Heartburn: (2) Hoarseness of voice: (3) Altered taste: (4) Difficulty swallowing pills: PLAN: Assessment and Plan Assessment and Plan (1) Heartburn: Status: Acute Plan: Jeane is a 54-year-old female patient with past medical history of diabetes, mitral valve prolapse and hyperlipidemia here today for follow-up. About 6 months ago patient developed dry mouth, burning in her esophagus and altered taste. She was initially treated for candidiasis with nystatin and fluconazole. Symptoms have not resolved however her main concern is the burning and altered taste. Symptoms were refractory to pantoprazole 40 mg twice a day therefore she went back to her omeprazole 20 mg a day. I recommended EGD for evaluation of her upper GI tract and she was agreeable. In the interim, we will increase her omeprazole to 40 mg daily. Etiology of her symptoms are unclear at this time but may be related to GERD. ?EGD ?Start omeprazole 40 mg daily -Follow-up after procedure Note: Portions of this note may have been selectively carried forward from previous documentation to ensure continuity and accuracy of the clinical record. All imported information has been reviewed and updated as necessary to reflect the current patient status, findings, and clinical decision-making for this encounter. [employer] speech recognition parking lot attendant and cashier software was used to create portions of this document. Sound alike and misspelled words, as well as other parking lot attendant and cashier errors may be contained in the documentation. (2) Altered taste: Status: Acute Medications: New omeprazole 40 mg PO QDAY 30 caps 2RF
--- NOTE | 2025-09-24 06:54 | PCM.PRE.AN2 ---
ASA Classification* ASA Classification ASA Classification: 2 Assessment & Plan Anesthesia* Anesthesia Assessment Anesthesia Assessment: Discussed sedation and/or anesthesia options, risks, benefits, and alternatives with patient/parents/legal guardian/POA. Questions invited. The patient/parents/legal guardian/POA seems to understand and agrees to proceed with anesthesia plan. Reviewed the physical assessment, medical history, allergy history and patient home medications list prior to surgery/procedure/anesthetic and documented any changes. Performed airway and anesthesia risk assessments. Anesthesia Type Anesthesia Type: MAC History Source History Obtained from:: Patient and Chart Anesthesia Focused Assessment* Temperature: 97.4 F Pulse Rate: 60 Blood Pressure: 102/65 Respiratory Rate: 16 Pulse Ox: 96 Oxygen Delivery Method: Room Air Airway Assessment Mouth opens: >3 cm Mallampati Score: IV Teeth Condition: Missing (Patient has 1 missing molar. Rest are tight.) Neck Range of motion (ROM): Limited ROM (Severe Restriction) Labs Anesthesia Preop lab: CBC WBC, (4.4-11.0) 7.4 K/mm3 12/11/17, 14:43 RBC, (4.2-5.4) 5.01 M/mm3 12/11/17, 14:43 Hgb, (12.0-15.0) 15.2 g/dl H 12/11/17, 14:43 Hct, (37-47) 44.2 % 12/11/17, 14:43 Plt Count, (150-450) 286 K/mm3 12/11/17, 14:43 CHEMISTRY Potassium, (3.5-5.1) 3.5 mmol/L 12/11/17, 14:43 Sodium, (136-145) 138 mmol/L 12/11/17, 14:43 BUN, (7-18) 14 mg/dL 12/11/17, 14:43 Creatinine, (0.55-1.02) 0.89 mg/dL 12/11/17, 14:43 Glucose, (74-106) 117 mg/dL H 12/11/17, 14:43 COAG Pre-Assessment Diagnosis/Proposed Procedure Planned Operative Procedure(s): EGD Anesthesia History Anesthesia History - industrial accountant: Anesthesia History - industrial accountant Hx Hospitalization No 09/22/25 12:09 Any Problems With Anesthesia slow to wake up. 09/22/25 12:09 Cholinesterase deficiency No 09/22/25 12:09 You/Your Family Experience No 09/22/25 12:09 fever (hyperthermia) with Relationship Recent Exposure to Contagious No 09/24/25 06:38 Disease Does patient have nerve No 09/22/25 12:09 stimulator Patient instructed to have device shut off --Does patient have Pacemaker or ICD? When Was Last Pacemaker Check QUESTION #4 FULL TEXT: You/Your Family Experience fever (hyperthermia) with Anesthesia Last Oral Intake Last Oral intake: Last Oral Intake NPO since 23:00 09/24/25 06:38 Meds taken in AM with sips of Yes 09/24/25 06:38 water? Meds patient instructed to see med list 09/24/25 06:38 take am of surgery Any additional information?: Yes Meds taken in AM with sips of water?: Yes PONV PONV - industrial accountant: PONV - industrial accountant Female Yes 09/22/25 12:09 HX of Motion Sickness Yes 09/22/25 12:09 HX of N/V After Surgery Yes 09/22/25 12:09 Non-Smoker Yes 09/22/25 12:09 Duration of Surgery greater No 09/22/25 12:09 than 60 minutes Number of Risk Factors 4 09/22/25 12:09 PONV Score Severe Risk 09/22/25 12:09 Height & Weight Height & Weight: Anesthesia: Height & Weight Height 5 ft 3 in 09/24/25 06:38 Weight: 69 kg 09/24/25 06:38 Body Mass Index (BMI) 26.9 09/24/25 06:38 Respiratory Assessment Respiratory Assessment - industrial accountant: Respiratory Tract Infection Hx - industrial accountant Hx Respiratory Tract Infection No 09/22/25 12:09 STOP Sleep Apnea STOP Sleep Apnea - industrial accountant: STOP Sleep Apnea - industrial accountant Hx Hypertension Yes 09/22/25 12:09 Hx Sleep Apnea No 09/22/25 12:09 CPAP BIPAP Do you snore loudly (louder No 09/22/25 12:09 than talking or can be heard Do you often feel tired/ No 09/22/25 12:09 fatigued/ sleepy during daytime? Has anyone observed you stop No 09/22/25 12:09 breathing during sleep? STOP Results Negative 09/22/25 12:09 QUESTION #5 FULL TEXT : Do you snore loudly (louder than talking or can be heard through closed doors)? Tobacco Use History Tobacco Use History - industrial accountant: Tobacco Use History - industrial accountant Tobacco Use Smoking Status Never smoker 09/22/25 12:09 Hx Tobacco Use No 09/22/25 12:09 Years Smoking Packs Smoked per Day Smoking Cessation Date was within the last 15 years Hx Smoking Cessation Date Hx Smoking Cessation Counseling Hematologic Medial History Hematologic Hx - industrial accountant: Hematologic Medical Hx - hospital director Hx of Blood Transfusion No 09/22/25 12:09 Hx of Transfusion in last 3 No 09/22/25 12:09 Months Date of Last Transfusion (if within last 3 months) Ever experience any problems No 09/22/25 12:09 with transfusion(s)? Specify any problems Hx of Preganancy in last 3 No 09/22/25 12:09 Months Nurse Filling Out Transfusion VLEHMAN 09/22/25 12:09 & Questions: Date: 09/22/25 09/22/25 12:09 Time: 12:18 09/22/25 12:09 Patient unable to answer at this time (ie. confused, unrespo /Reproduction History /Reproductive History - industrial accountant: /Reproductive Hx- industrial accountant Hx Now No 09/22/25 12:09 Gestational Age (in weeks): EDC: Hx Hx Para Hx Section SAB No 09/22/25 12:09 Does the father of the baby or his family experience fever w Father of the baby Malignant Hypertension history comment Active Medications Active Medications: Current Medications Generic Name Dose Route Start Last Admin Trade Name Freq PRN Reason Stop Dose Admin Lactated Ringer's 1,000 mls @ 15 mls/hr 09/24/25 06:15 IV .Q48H JACKELIN PFSH Medical History Wears glasses Anxiety Bruising Thyroid disease Low iron Easy bruising Non-smoker History of stress test Cardiology follow-up encounter 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 MVP (mitral valve prolapse) Home Medications ?Medication ?Instructions ?Recorded ?Last Taken ?Type atenolol 25 mg tablet 25 mg PO QHS 06/13/25 Unknown History chlorophyll copper complex 10 mg 10 mg PO DAILY 06/13/25 Unknown History tablet cholecalciferol (vitamin D3) 250 250 mcg PO BID 06/13/25 Unknown History mcg (10,000 unit) capsule cranberry extract 250 mg capsule 500 mg PO QDAY 06/13/25 Unknown History furosemide 20 mg tablet (Lasix) 20 mg PO QAM 06/13/25 Unknown History levocetirizine 5 mg tablet 5 mg PO QDAY 06/13/25 09/24/25 History levothyroxine 50 mcg capsule 50 mcg PO QDAY 06/13/25 Unknown History magnesium 200 mg tablet 500 mg PO QDAY 06/13/25 09/24/25 History metformin 500 mg tablet 1,000 mg PO BID 06/13/25 Unknown History montelukast 10 mg tablet 10 mg PO QDAY 06/13/25 Unknown History simvastatin 40 mg tablet 40 mg PO QDAY 06/13/25 Unknown History verapamil 120 mg tablet 120 mg PO BID 06/13/25 09/24/25 History omeprazole 40 mg capsule,delayed 40 mg PO QDAY #30 caps 09/05/25 Unknown Rx release coenzyme Q10 30 mg capsule (Co 30 mg PO DAILY 09/22/25 Unknown History Q-10) estradiol 0.05 mg/24 hr semiweekly 1 patch transdermal TUFR 09/22/25 Unknown History transdermal patch progesterone micronized 200 mg 200 mg PO QHS 09/22/25 Unknown History capsule trazodone 100 mg tablet 100 mg PO QHS 09/22/25 Unknown History Allergy/AdvReac Type Severity Reaction Status Date / Time erythromycin base Allergy Intermediate Nausea Verified 09/24/25 06:43 sulfamethoxazole (From Allergy Intermediate Rash, Verified 09/24/25 06:43 Septra) nausea trimethoprim (From Julra) Allergy Intermediate Rash, Verified 09/24/25 06:43 nausea Family History Mother Arthritis Hypertension Father Arthritis Hypertension High cholesterol Diabetes Brother Cancer pancreatic Surgical History Hx of fusion of cervical spine H/O knee surgery History of carpal tunnel surgery of right wrist History of carpal tunnel surgery of left wrist H/O vaginal surgery History of Social History Smoking Status: Never smoker Review of Systems (Anesthesia) ROS Narrative System reviewed and no additional complaints, except as documented.
[2025-09-24] MEDS: Lactated Ringers 1,000 ML 15 ML IV (06:55)
--- NOTE | 2025-09-24 07:00 | EGD_PTH ---
PATIENT: NIMESH ALCAZAR LOC: EN U#:[id number] AGE/SX: 54/F ROOM: RE09/24/[address]: Dr. Hayder Ospina DO : 1970 BED: DIS: 09/24/2025 SPEC #: [id number] RECD: 09/24/25 08:54 STATUS: FRANCINE REQ #: [id number] JULIAN: 09/24/25 07:[address]: Hayder Ospina DEPT: SURGICAL PATHOLOGY RECD BY: Elroy Jauregui ENTERED: 09/24/25 10:52 SP TYPE: EGD BIOPSY ORQUIDEA DR: Kathi Sears, COLLATERAL ANALYST-C Tissues: A - Esophagus, NOS B - Esophagus, NOS Procedures: Surgery Specimen Level IV HEADER OPERATION: EGD with biopsy and dilatation PRE-OP DIAGNOSIS: Heartburn, hoarseness of voice, altered taste, difficulty swallowing pills TISSUE SUBMITTED: A- Distal esophagus biopsy, B- Random esophagus biopsy MICROSCOPIC DIAGNOSIS A. Esophagus, distal, biopsy: - Benign squamous epithelium - Oxyntocardiac type mucosa with mild chronic inflammation, negative for goblet cells - Focal pancreatic acinar cell metaplasia B. Esophagus, random, biopsy: - Benign squamous epithelium with no pathologic change - Focal detached cardiac type mucosa with no pathologic change MICROSCOPIC DESCRIPTION Slides are reviewed. GROSS DESCRIPTION A. Received in fixative is one container labeled with the patient's name and designated Distal esophagus biopsy. The specimen consists of three irregular fragments of goetz tissue, each measuring 0.4 cm. The specimen is totally submitted in one cassette. B. Received in fixative is one container labeled with the patient's name and designated Random esophagus biopsy. The specimen consists of two irregular fragments of goetz tissue that measure 0.3 and 0.5 cm. The specimen is totally submitted in one cassette. [place] 09/24/2025 CPT:83276c7
--- NOTE | 2025-09-24 07:26 | OP.EGD_ITS ---
Patient Name: Jeane Islas Procedure Date: 09/24/2025 7:03 AM Date of : 1970 Age: 54 Procedure: Upper GI endoscopy Indications: Dysphagia, Suspected esophageal reflux, Failure to respond to medical treatment Providers: Hayder Ospina DO Referring MD: Kathi Sears Medicines: Monitored Anesthesia Care Patient Profile: This is a 54 year old female. Refer to note in patient chart for documentation of history and physical. Patient has symptoms of chronic chest pain, dysphagia with solids and chronic heartburn. Complications: No immediate complications. Procedure: Pre-Anesthesia Assessment: - Prior to the procedure, a History and Physical was performed, and patient medications and allergies were reviewed. The patient is competent. The risks and benefits of the procedure and the sedation options and risks were discussed with the patient. All questions were answered and informed consent was obtained. Patient identification and proposed procedure were verified by the physician in the pre-procedure area. Mental Status Examination: alert and oriented. Airway Examination: normal oropharyngeal airway and neck mobility. Respiratory Examination: clear to auscultation. CV Examination: normal. Prophylactic Antibiotics: The patient does not require prophylactic antibiotics. Prior Anticoagulants: The patient has taken no anticoagulant or antiplatelet agents. ASA Grade Assessment: II - A patient with mild systemic disease. After reviewing the risks and benefits, the patient was deemed in satisfactory condition to undergo the procedure. The anesthesia plan was to use monitored anesthesia care (MAC). Immediately prior to administration of medications, the patient was re-assessed for adequacy to receive sedatives. The heart rate, respiratory rate, oxygen saturations, blood pressure, adequacy of pulmonary ventilation, and response to care were monitored throughout the procedure. The physical status of the patient was re-assessed after the procedure. After obtaining informed consent, the endoscope was passed under direct vision. Throughout the procedure, the patient's blood pressure, pulse, and oxygen saturations were monitored continuously. The gastroscope was introduced through the mouth, and advanced to the second part of duodenum. The upper GI endoscopy was accomplished without difficulty. The patient tolerated the procedure well. Scope In: 7:14:19 AM Scope Out: 7:20:34 AM Total Procedure Duration Time 0 hours 6 minutes 15 seconds Findings: Abnormal motility was noted in the lower third of the esophagus. The cricopharyngeus was normal. There are extra peristaltic waves in the esophageal body. The distal esophagus/lower esophageal sphincter is spastic, but gives up passage to the endoscope. Secondary peristaltic waves are noted. Biopsies were obtained from the proximal and distal esophagus with cold forceps for histology of suspected eosinophilic esophagitis. A guidewire was placed and the scope was withdrawn. Dilation was performed with a Savary dilator with no resistance at 60 Fr. The dilation site was examined and showed moderate mucosal disruption. The Z-line was irregular and was found 40 cm from the incisors. Biopsies were taken with a cold forceps for histology. Verification of patient identification for the specimen was done. Estimated blood loss was minimal. Multiple hyperplastic polyps with no bleeding and no stigmata of recent bleeding were found in the cardia, in the gastric fundus and in the gastric body. No other significant abnormalities were identified in a careful examination of the stomach. No gross lesions were noted in the entire examined duodenum. Impression: - Abnormal esophageal motility. Dilated. - Z-line irregular, 40 cm from the incisors. Biopsied. - Multiple gastric polyps. - No gross lesions in the entire examined duodenum. - Biopsies were taken with a cold forceps for evaluation of eosinophilic esophagitis. Recommendation: - Discharge patient to home. - Resume previous diet. - Continue present medications. - Await pathology results. Procedure Code(s): --- Professional --- 89115, Esophagogastroduodenoscopy, flexible, transoral; with insertion of guide wire followed by passage of dilator(s) through esophagus over guide wire 70996, 59,51, Esophagogastroduodenoscopy, flexible, transoral; with biopsy, single or multiple CPT copyright 2021 [employer]. All rights reserved. The codes documented in this report are preliminary and upon sheeter waxer operator review may be revised to meet current compliance requirements. Hayder Ospina DO 09/24/2025 7:26:46 AM This report has been signed electronically. Number of Addenda: 0 Note Initiated On: 09/24/2025 7:03 AM
--- NOTE | 2025-09-24 07:27 | OP.PROVAT_ITS ---
09/24/2025 Kathi Sears Re : Upper GI endoscopy procedure for Jeane Islas Dear Renu This procedure was performed on Wednesday, September 24, 2025. My impressions and recommendations are as follows: Impressions : - Abnormal esophageal motility. Dilated. - Z-line irregular, 40 cm from the incisors. Biopsied. - Multiple gastric polyps. - No gross lesions in the entire examined duodenum. - Biopsies were taken with a cold forceps for evaluation of eosinophilic esophagitis. Recommendations : - Discharge patient to home. - Resume previous diet. - Continue present medications. - Await pathology results. My findings are described in the full procedure note, which is enclosed. If I can be of further assistance, please feel free to contact me at . Sincerely, Hayder Ospina, 09/24/2025 7:26:46 AM This report has been signed electronically.
--- NOTE | 2025-09-24 07:29 | PCM.POST.ANE ---
Anesthesia: Postop Eval I Current Vital Signs Temperature: 98 F Pulse Rate: 57 Blood Pressure: 92/57 Respiratory Rate: 16 Pulse Ox: 94 Oxygen Delivery Method: Room Air Assessment Airway patent: Yes Spontaneous unlabored respirations: Yes Mental status: Asleep nausea: No Vomiting: No Anesthesia Complication: No Fluid Hydration Crystalloid volume administer (ml): 400 Total IV fluid infused: 400 Progress Note Anesthesia document: Postop Eval 1 completed: Yes
--- NOTE | 2025-09-24 16:32 | PCM.POSTANE2 ---
Anesthesia Postop Eval I Sum Postop Eval Completion status Anesthesia document: Postop Eval 1 completed: Yes Anesthesia Postop Eval I Summary Anesthesia Postop Eval I Summary: Anesthesia Postop Eval I: Assessment Summary Airway patent Yes 09/24/25 07:30 [email or web address] Spontaneous unlabored Yes 09/24/25 07:30 [email or web address] respirations Mental status Asleep 09/24/25 07:30 [email or web address] nausea No 09/24/25 07:30 [email or web address] Vomiting No 09/24/25 07:30 [email or web address] Anesthesia Postop Eval I: Fluid Summary Crystalloid volume administer 400 09/24/25 07:30 [email or web address] (ml) Colloids volume administered ( ml) Blood Product volume administered (ml) Total IV fluid infused 400 09/24/25 07:30 [email or web address] Anesthesia Postop Eval I: Summary Notes Anesthesia Complication No 09/24/25 07:30 [email or web address] Anesthesia Complication Comment: Post-operative progress note Anesthesia: Postop Eval II Evaluation Mental status: Awake and Calm Pain Level: 0 nausea: No Vomiting: No
== END 2025-09-24 08:26 | disposition home or self-care (01) ==
LOC: EN 05:57 → AC 05:58
PROVIDERS: PCP Nurse Practitioner Primary Care; Referring Provider Nurse Practitioner Primary Care; Visit Provider Internal Medicine Gastroenterology
PROC: 0DJ08ZZ Inspection of Upper Intestinal Tract, Via Natural or Artificial Opening Endoscopic (ICD-10-PCS; CPT 43235; principal; 2025-09-24 06:55)
DX: K22.70 Barrett's esophagus without dysplasia (principal); K31.7 Polyp of stomach and duodenum; Z79.899 Other long term (current) drug therapy; K20.90 Esophagitis, unspecified without bleeding
CPT/HCPCS: 43239; 43248; 82962; 88305; C1769; J2405